=== PATIENT | female | born 1955 | race African-American/Black ===

== ENCOUNTER 2017-11-21 15:25 | Inpatient (IN) | payer MEDICARE, OTHER ==
[2017-11-21 16:34] LABS: Troponin I Less than 0.010 ng/mL (< 0.028)
[2017-11-21 18:17] LABS: Free T4 (Free Thyroxine) 0.93 ng/dL (0.70-1.48); Thyroid Stimulating Hormone 1.9672 uIU/mL (0.35-4.94)
[2017-11-21] MEDS ORDERED: HumaLOG 300 UNITS/3 ML VIAL SC PRN ×2 (19:10)
[2017-11-21] MEDS ORDERED: Ondansetron HCl/PF 4 MG/2 ML Vial IVP PRN (19:10)
[2017-11-21] MEDS ORDERED: traMADol HCl 50 MG TAB PO PRN (19:10)
[2017-11-21] MEDS ORDERED: Acetaminophen 325 MG TAB PO PRN (19:10)
[2017-11-21] MEDS ORDERED: Dextrose 5% in Water 1,000 ML IV PRN (19:10)
[2017-11-21] MEDS ORDERED: hydrALAZINE 20 MG/ML VIAL SLOW IVP PRN (19:10)
[2017-11-21] MEDS ORDERED: Dextrose 50% Abboject 50 ML SYRINGE SLOW IVP PRN (19:10)
[2017-11-21] MEDS ORDERED: Mag-Al 1200 mg/1200 mg/30 ML UDCUP PO PRN (19:10)
[2017-11-21] MEDS ORDERED: Temazepam 15 MG CAP PO PRN (19:10)
[2017-11-21] MEDS ORDERED: Ondansetron ODT 4 MG TAB PO PRN (19:10)
--- NOTE | 2017-11-21 19:44 | CON ---
DATE OF CONSULT: HISTORY OF PRESENT ILLNESS: The patient is a 59-year-old woman who presents for evaluation of dyspnea and weakness. The patient has a previous history of asthma. The patient also states she has a long history of having a slow heart rate. The patient was sent to the emergency room when she felt weak and dyspneic. She reports also having some midsternal chest pain. She states on a regular basis she will have pain in her chest. This occurs with and without exertion. The patient reports that this discomfort can last from several minutes to several hours. It is midsternal and does not radiate. PAST MEDICAL HISTORY: 1. Hypertension. 2. Bradycardia. 3. Asthma. 4. Diabetes mellitus. PAST SURGICAL HISTORY: Hand surgery, and lumbar spine surgery. ALLERGIES: William inhibitors and acetaminophen. SOCIAL HISTORY: She is a former smoker. FAMILY HISTORY: Positive family history of heart disease. REVIEW OF SYSTEMS: Ten-point system otherwise unremarkable. MEDICATIONS ON ADMISSION: Metformin 500 q.a.m., Zocor 40 at bedtime, aspirin 81 daily, HCTZ 12.5 daily, and glipizide 5 mg. PHYSICAL EXAMINATION: GENERAL: This is a well-developed woman in no acute distress. VITAL SIGNS: Blood pressure was 186/76. NECK: Showed no jugular distention. LUNGS: Clear to auscultation. HEART: Regular rate and rhythm, normal S1, S2. ABDOMEN: Nondistended. EXTREMITIES: Showed no edema. SKIN: Warm and dry. NEUROLOGIC: Nonfocal. VASCULAR: Radial pulses are 2+. LABORATORY: Her white blood count 9.8, hemoglobin 11.4, hematocrit 36.3 and her platelets are 280. Sodium was 143, potassium 3.8, chloride 105, bicarbonate 24, BUN 11, creatinine is 1.0, troponin less than 0.01. BNP is 27. TSH is 1.96. EKG revealed marked sinus bradycardia. IMPRESSION: 1. Chest pain, atypical.. 2. Hypertension. 3. Diabetes mellitus. 4. Dyslipidemia. 5. Bradycardia. This patient presented with atypical chest pain. Her cardiac enzymes reveal no evidence of a myocardial infarction. She has marked bradycardia. She however is asymptomatic. We will follow this patient with you through her hospitalization. [facility] CENTERCinthya
[2017-11-21 19:53] LABS: Troponin I 0.015 ng/mL (< 0.028)
[2017-11-21] MEDS: NIFEdipine XL 30 MG TAB PO SCH (21:58)
[2017-11-21 22:02] VITALS: BMI 24.3
[2017-11-21 22:16] LABS: Troponin I Less than 0.010 ng/mL (< 0.028)
--- NOTE | 2017-11-21 22:30 | HP ---
PRIMARY CARE PHYSICIAN: Dr. Kingsley. CHIEF COMPLAINT: Chest tightness and shortness of breath as well as heart rate is going too low. HISTORY OF PRESENT ILLNESS: Ms. Ortiz is a very pleasant 62-year-old female that has a history of hy pertension and diabetes. She says that she was in her usual state of health until yesterday when she started noticing some tightness in her chest. She says it was happening while she was sitting down, playing with her nephew. She says there was nothing strenuous. She also felt a little bit lighthea ded at that time. She says that she went in to check her blood pressure when this happened and her b lood pressure was 190/90 and she took an extra blood pressure medicine which was hydrochlorothiazide and the blood pressure went down only a little bit to 170 systolic. She was using electronic blood p ressure monitor and it was noted that her heart rate was in the 30s and the 40s and the highest it we nt was in the 40s. She said that it continued the next day into the 40s and she noticed some nausea along with this and for this reason she came to the emergency room in [place] for evaluation. A t that time, she had an EKG which had some nonspecific ST wave changes and her heart rate was in the 70s. However, when she was transferred to our facility, a repeat EKG demonstrated heart rate in the 40s and she had some T-wave inversions in leads II, III and aVF, as well as what appears to be a U wa ve in leads V5 and V6. REVIEW OF SYSTEMS: Constitutional: There have been no fevers, chills, no night sweats, no weight lo ss. HEENT: She denies any headaches. She has had some dizziness and some visual changes off and on . No sore throat, no rhinorrhea, no neck pain, no adenopathy. Pulmonary: No hemoptysis, no cough, no wheezing. Cardiovascular: As the history of present illness. No PND, no orthopnea. Gastrointes tinal: She has had some nausea, but no vomiting and she has had some loose stools, no blood in the s tools or melena. Genitourinary: No urinary frequency, hematuria, no hesitancy. Neurologic: No foc al weakness, numbness, no seizures. Psychiatric: No symptoms of anxiety or depression. PAST MEDICAL HISTORY: Significant for diabetes mellitus, hypertension, hyperlipidemia, her record sa ys COPD, but she says asthma and she says she only started having asthma after a chemical spill that she experienced at work. PAST SURGICAL HISTORY: She has had lumbar spine surgery, she says three of them, as well as hand wilfrid jenifer. ALLERGIES: ELLY INHIBITOR, she says she had to be intubated for that, ANGIOTENSIN RECEPTOR BLOCKERS, PROPOXYPHENE, MEPERIDINE. ACETAMINOPHEN is listed in her records, but she denies being allergic to a cetaminophen. FAMILY HISTORY: Significant for brother with KS as well as her father had pancreatic cancer and anot her brother with colon cancer. SOCIAL HISTORY: She is a former smoker. She quit 4 years ago. Prior to that, she had been smoking for 40 years. Occasional beer drinker. She is and she has no children. She had 2 miscarria ges. Her medical power of civil litigation attorney is her sister, Ms. Mendez . CODE STATUS: FULL CODE. MEDICATIONS: She recently was switched to a new diabetic medication which is a pill, but she does no t know the name. She is also on simvastatin 40 mg daily, aspirin 81 mg daily, Combivent inhaler, hyd rochlorothiazide 12.5 mg daily and tramadol 50 mg as needed. PHYSICAL EXAMINATION: GENERAL: She is alert and oriented. She appears to be in no acute distress. VITAL SIGNS: Her heart rate is 43, blood pressure is ranging from 140-180 systolic, respiratory rate of 14, temperature is 97.6. HEENT: Pupils are equal, round, and reactive. Extraocular muscles are intact. Her sclerae are anic teric. Throat, no erythema, no exudates. NECK: No adenopathy, no bruits. LUNGS: Clear. There is no wheezing, no rales. CARDIOVASCULAR: She has a normal S1, S2. I did not appreciate an S3 or S4. No murmurs, clicks or r ubs. Her heart rate is bradycardic. ABDOMEN: Soft, it is nontender, nondistended. Positive for bowel sounds. There is no rebound or gu arding. EXTREMITIES: There is no clubbing, cyanosis, no edema. NEUROLOGIC: Neurologically, the exam is nonfocal. IMAGING: On the EKG from our facility, she had sinus bradycardia, the rate was in the 40s with some T-wave inversion in II, III and aVF as well as a U wave in V5 and V6. LABORATORY RESULTS: D-dimer is 0.49, white blood cell count 9.8, hemoglobin 11.4, hematocrit is 36.3 , platelet count is 280, sodium 143, potassium 3.8, chloride is 105, CO2 is 24, BUN of 11, creatinine 1.0 and glucose is 91. ASSESSMENT AND PLAN: 1. This is a pleasant 62-year-old female who presents to the emergency room with some chest tightness and feeling a bit dizzy and lightheaded. She also has fairly profound bradycardia. I suspect that her symptoms could be related to her low heart rate. She will be placed in observation and we will c bashir to monitor her on telemetry. As long as she is not having a syncope and severe chest pain an d this is while she is on the stretcher with the heart rate in the 40s, then we will go ahead and nando erate that for now and Cardiology will be consulted with regard to possible symptomatic bradycardia. Since she had a stress test fairly recently, I will hold off on ordering a stress test or an echo un til recommended by Cardiology. 2. For diabetes, we will place her on her usual medication once we are able to establish the name an d the dose and also place her on sliding scale insulin. 3. For hypertension, we will be treating this with p.r.n. hydralazine and we will avoid medications such as clonidine or beta blockers, which could affect her AV node.
[2017-11-22 05:36] LABS: #Eosinphils 0.5 thou/uL (0.0-0.7); #Lymphocytes 3.6 thou/uL (1.20-3.40); #Monocytes 0.7 thou/uL (0.11-0.59); #Neutrophils 4.4 thou/uL (1.40-6.50); %Basophils 0.4 % (0.0-1.0); %Eosinophils 5.6 % (0.0-10.0); %Monocytes 7.1 % (0.0-10.0); %Neutrophils 47.8 % (42.0-75.0); Hemoglobin 10.7 g/dL (12.0-16.0); Mean Corpuscular HGB CONC 31.4 g/dL (32.0-36.0); Mean Corpuscular Hemoglobin 25.6 pg (27.0-31.0); Mean Corpuscular Volume 81.5 fl (81.0-99.0); Mean Platelet Volume 7.4 fL (7.4-10.4); Platelet Count 256 thou/uL (130-400); RBC Distribution Width 15.8 % (11.5-14.5); Red Blood Cell (RBC) Count 4.19 mill/uL (4.20-5.40); White Blood Cell (WBC) Count 9.3 thou/uL (4.8-10.8)
[2017-11-22 05:57] LABS: Anion Gap 9 mmol/L (10-20); BUN (Urea Nitrogen) 13 mg/dL (9.8-20.1); Calc. Creatinine Clearance 68 mL/min (70-130); Calcium 9.7 mg/dL (7.8-10.44); Carbon Dioxide 29 mmol/L (23-31); Cardiac Risk 4.3 (Less than 4.5); Chloride 105 mmol/L (98-107); Cholesterol 171 mg/dl (< 200 Desired); Estimated GFR-MDRD 73; Glucose 84 mg/dL (80-115); HDL Cholesterol 40 mg/dL (>60 Neg Risk); LDL Cholesterol, Calculated 109 mg/dL; Potassium 3.5 mmol/L (3.5-5.1); Sodium 139 mmol/L (136-145); Triglycerides 112 mg/dL (Less than 150)
[2017-11-22] MEDS: NIFEdipine XL 30 MG TAB PO SCH ×2 (10:37→20:27)
[2017-11-22] MEDS: Nitroglycerin 2% Ointment 1 INCH/1 GM Packet TOP SCH ×2 (10:37→20:28)
[2017-11-22] MEDS: Aspirin 325 MG TAB PO SCH (10:37)
[2017-11-22] MEDS: Enoxaparin Sodium 40 MG/0.4 ML SYRINGE SC SCH (10:37)
--- NOTE | 2017-11-22 14:53 | PDOC.PN ---
- Subjective Encounter Start Date: 11/22/17 Encounter Start Time: 14:52 Ms. Ortiz was seen today in follow-up. She says she is feeling a little better. She has less chest pain today. - Objective Resuscitation Status: Resuscitation Status FULL:Full Resuscitation MAR Reviewed: Yes Vital Signs & Weight: Vital Signs (12 hours) Temp Pulse Resp BP BP Pulse Ox 11/22/17 10:37 42 L 158/71 H 11/22/17 04:50 98.0 F 45 L 20 155/69 H 95 Weight Admit Weight 154 lb Weight 154 lb 14.4 oz I&O: 11/21/17 11/22/17 11/23/17 06:59 06:59 06:59 Intake Total 150 Output Total 400 Balance -250 Result Diagrams: 11/22/17 04:53 11/22/17 04:53 Additional Labs: Accuchecks 11/22/17 11/22/17 11/21/17 11:17 06:47 19:38 POC Glucose 116 H 93 86 Phys Exam - Physical Examination HEENT: PERRLA Respiratory: no wheezing, no rales, no rhonchi, clear to auscultation bilateral Cardiovascular: RRR, no significant murmur, no rub Gastrointestinal: soft, non-tender, positive bowel sounds Musculoskeletal: no edema Dx/Plan (1) Bradycardia Code(s): R00.1 - BRADYCARDIA, UNSPECIFIED Status: Acute (2) Asthma Code(s): J45.909 - UNSPECIFIED ASTHMA, UNCOMPLICATED Status: Chronic (3) Diabetes type 2, controlled Code(s): E11.9 - TYPE 2 DIABETES MELLITUS WITHOUT COMPLICATIONS Status: Chronic (4) Dyslipidemia Code(s): E78.5 - HYPERLIPIDEMIA, UNSPECIFIED Status: Chronic (5) Hypertension Code(s): I10 - ESSENTIAL (PRIMARY) HYPERTENSION Status: Chronic - Plan * Bradycardia- her heart rate remains in the 40's- she is mostly asymptomatic * Plan is for cardiac Cath on Friday * HTN- blood pressure has been elevated- Pocardia has been added- will monitor the trend * DM- blood glucose is stable. * Asthma- stable
[2017-11-22] MEDS: Atorvastatin Calcium 40 MG TAB PO SCH (20:27)
[2017-11-23] MEDS: NIFEdipine XL 30 MG TAB PO SCH ×2 (07:57→20:14)
[2017-11-23] MEDS: Enoxaparin Sodium 40 MG/0.4 ML SYRINGE SC SCH (07:57)
[2017-11-23] MEDS: Aspirin 325 MG TAB PO SCH (07:57)
[2017-11-23] MEDS: Nitroglycerin 2% Ointment 1 INCH/1 GM Packet TOP SCH ×2 (07:58→20:15)
[2017-11-23] MEDS ORDERED: Communication Order-Pharmacy FS SCH (08:45)
--- NOTE | 2017-11-23 13:11 | PDOC.PN ---
- Subjective Encounter Start Date: 11/23/17 Encounter Start Time: 11:00 Subjective: no sob or chest pain -: no palp, is amb in hallway - Objective Resuscitation Status: Resuscitation Status FULL:Full Resuscitation MAR Reviewed: Yes Vital Signs & Weight: Vital Signs (12 hours) Temp Pulse Resp BP BP Pulse Ox 11/23/17 11:18 97.8 F 66 16 128/60 96 11/23/17 07:57 58 L 146/65 H 11/23/17 07:50 98.0 F 55 L 16 95 11/23/17 07:48 98.0 F 55 L 16 146/65 H 95 11/23/17 05:32 98.0 F 52 L 16 142/67 H 95 Weight Admit Weight 154 lb Weight 154 lb 1.6 oz I&O: 11/22/17 11/23/17 11/24/17 06:59 06:59 06:59 Intake Total 150 1380 Output Total 400 Balance -250 1380 Result Diagrams: 11/22/17 04:53 11/22/17 04:53 Additional Labs: Accuchecks 11/23/17 11/23/17 11/22/17 11:21 05:43 20:44 POC Glucose 136 H 108 115 H 11/22/17 16:42 POC Glucose 116 H Phys Exam - Physical Examination HEENT: PERRLA, moist MMs Neck: no JVD, supple Respiratory: no wheezing, no rales Cardiovascular: RRR, no significant murmur Gastrointestinal: soft, non-tender, positive bowel sounds Musculoskeletal: no edema, pulses present Neurological: non-focal, moves all 4 limbs Psychiatric: normal affect, A&O x 3 Dx/Plan (1) Bradycardia Code(s): R00.1 - BRADYCARDIA, UNSPECIFIED Status: Acute (2) Chest pain Code(s): R07.9 - CHEST PAIN, UNSPECIFIED Status: Resolved Qualifiers: Chest pain type: unspecified Qualified Code(s): R07.9 - Chest pain, unspecified (3) Diabetes type 2, controlled Code(s): E11.9 - TYPE 2 DIABETES MELLITUS WITHOUT COMPLICATIONS Status: Chronic Qualifiers: Diabetes mellitus residential insulin use: without residential use Diabetes mellitus complication status: with unspecified complications Qualified Code(s) : E11.8 - Type 2 diabetes mellitus with unspecified complications (4) Dyslipidemia Code(s): E78.5 - HYPERLIPIDEMIA, UNSPECIFIED Status: Chronic (5) Hypertension Code(s): I10 - ESSENTIAL (PRIMARY) HYPERTENSION Status: Chronic Qualifiers: Hypertension type: essential hypertension Qualified Code(s): I10 - Essential (primary) hypertension (6) Chronic anemia Code(s): D64.9 - ANEMIA, UNSPECIFIED Status: Chronic - Plan for cath in am -: is on asp, lipitor, procardia xl bid, nitropaste -: hemostable -: Hb around 10g and stable * . Review of Systems - Medications/Allergies Allergies/Adverse Reactions: Allergies Allergy/AdvReac Type Severity Reaction Status Date / Time ELLY Inhibitors Allergy Verified 09/07/13 02:12 acetaminophen Allergy Verified 09/07/13 02:12 [From Darvocet-N 100] meperidine HCl [From Demerol] Allergy Verified 09/07/13 02:12 propoxyphene napsylate Allergy Verified 09/07/13 02:12 [From Darvocet-N 100] valsartan [From Diovan] Allergy Verified 09/07/13 02:12 Medications: Current Medications Acetaminophen (Tylenol) 650 mg PO Q4H PRN PRN Reason: Headache/Fever or Pain Al Hydroxide/Mg Hydroxide (Maalox) 30 ml PO Q6H PRN PRN Reason: Heartburn or Indigestion Albuterol/Ipratropium (Duoneb) 3 ml NEB QID PRN PRN Reason: Wheezing Aspirin (Aspirin) 325 mg PO DAILY [facility] Last Admin: 11/23/17 07:57 Dose: 325 mg Atorvastatin Calcium (Lipitor) 40 mg PO HS [facility] Last Admin: 11/22/17 20:27 Dose: 40 mg Dextrose/Water (Dextrose 50%) 25 gm SLOW IVP PRN PRN PRN Reason: Hypoglycemia Diazepam (Valium) 5 mg PO WILLCALL [facility] Stop: 11/24/17 20:00 Enoxaparin Sodium (Lovenox) 40 mg SC 0900 [facility] Stop: 11/23/17 21:01 Last Admin: 11/23/17 07:57 Dose: 40 mg Glucagon (Glucagon) 1 mg IM PRN PRN PRN Reason: Hypoglycemia Hydralazine HCl (Apresoline) 10 mg SLOW IVP Q4H PRN PRN Reason: Systolic BP > 180 Dextrose/Water (D5w) 1,000 mls @ 0 mls/hr IV .Q0M PRN; As Directed PRN Reason: Hypoglycemia Insulin Human Lispro (Humalog) 0 units SC .MODERATE SLIDING SC PRN PRN Reason: Moderate Correctional Scale Insulin Human Lispro (Humalog) 0 units SC .BEDTIME SLIDING SC PRN PRN Reason: Bedtime Correctional Scale Miscellaneous Information (Communication Order-Pharmacy) 0 each FS ONE [facility] Stop: 11/24/17 08:46 Nifedipine (Procardia Xl) 30 mg PO BID [facility] Last Admin: 11/23/17 07:57 Dose: 30 mg Nitroglycerin (Nitro-Bid 2% Ointment) 1 inch TOP BID [facility] Last Admin: 11/23/17 07:58 Dose: 1 inch Ondansetron HCl (Zofran Odt) 4 mg PO Q6H PRN PRN Reason: Nausea/Vomiting Ondansetron HCl (Zofran) 4 mg IVP Q6H PRN PRN Reason: Nausea/Vomiting Sodium Chloride (Flush - Normal Saline) 10 ml IVF Q12HR [facility] Last Admin: 11/23/17 07:58 Dose: 10 ml Sodium Chloride (Flush - Normal Saline) 10 ml IVF PRN PRN PRN Reason: Saline Flush Temazepam (Restoril) 15 mg PO HSPRN PRN PRN Reason: Insomnia Tramadol HCl (Ultram) 50 mg PO Q4H PRN PRN Reason: Moderate Pain (4-6)
[2017-11-23] MEDS: Atorvastatin Calcium 40 MG TAB PO SCH (20:14)
[2017-11-24] MEDS: NIFEdipine XL 30 MG TAB PO SCH ×2 (05:09→20:26)
[2017-11-24] MEDS: Aspirin 325 MG TAB PO SCH (05:11)
[2017-11-24] MEDS ORDERED: Diazepam 5 MG TAB PO SCH (06:00)
[2017-11-24] MEDS ORDERED: Lidocaine 1% (PF) 30 ML VIAL ONE (07:17)
[2017-11-24] MEDS ORDERED: Midazolam HCl 2 mg/2 ml Vial ONE (08:27)
[2017-11-24] MEDS ORDERED: Nitroglycerin 0.4 MG TAB (25 Tab Bottle) SL PRN (09:13)
[2017-11-24] MEDS ORDERED: Sodium Chloride 0.9% 200 ML IV PRN (09:15)
[2017-11-24] MEDS: Nitroglycerin 2% Ointment 1 INCH/1 GM Packet TOP SCH (10:49)
--- NOTE | 2017-11-24 11:40 | PDOC.PN ---
- Subjective Encounter Start Date: 11/24/17 Encounter Start Time: 10:30 Subjective: just had cath done, awake, no sob/chest pain - Objective Resuscitation Status: Resuscitation Status FULL:Full Resuscitation MAR Reviewed: Yes Vital Signs & Weight: Vital Signs (12 hours) Temp Pulse Resp BP BP 11/24/17 08:00 97.9 F 55 L 16 11/24/17 05:28 97.9 F 55 L 16 138/65 11/24/17 05:09 55 L 138/65 Weight Admit Weight 154 lb Weight 154 lb 1.6 oz I&O: 11/23/17 11/24/17 11/25/17 06:59 06:59 06:59 Intake Total 1380 1265 Output Total 1200 400 Balance 1380 65 -400 Result Diagrams: 11/22/17 04:53 11/22/17 04:53 Additional Labs: Accuchecks 11/24/17 11/23/17 11/23/17 05:41 20:14 16:40 POC Glucose 102 135 H 93 Phys Exam - Physical Examination HEENT: PERRLA, moist MMs Neck: no JVD, supple Respiratory: no wheezing, no rales Cardiovascular: RRR, no significant murmur Gastrointestinal: soft, non-tender, positive bowel sounds Musculoskeletal: no edema, pulses present Neurological: non-focal, moves all 4 limbs Psychiatric: A&O x 3 Dx/Plan (1) CAD (coronary artery disease) Code(s): I25.10 - ATHSCL HEART DISEASE OF [place] CORONARY ARTERY W/O ANG PCTRS Status: Acute Qualifiers: Coronary Disease-Associated Artery/Lesion type: [place] artery [place] vs. transplanted heart: [place] heart Comment: RCA and Cx stenosis (2) Bradycardia Code(s): R00.1 - BRADYCARDIA, UNSPECIFIED Status: Acute (3) Chest pain Code(s): R07.9 - CHEST PAIN, UNSPECIFIED Status: Resolved Qualifiers: Chest pain type: unspecified Qualified Code(s): R07.9 - Chest pain, unspecified (4) Diabetes type 2, controlled Code(s): E11.9 - TYPE 2 DIABETES MELLITUS WITHOUT COMPLICATIONS Status: Chronic Qualifiers: Diabetes mellitus goods layer insulin use: without goods layer use Diabetes mellitus complication status: with unspecified complications Qualified Code(s) : E11.8 - Type 2 diabetes mellitus with unspecified complications (5) Dyslipidemia Code(s): E78.5 - HYPERLIPIDEMIA, UNSPECIFIED Status: Chronic (6) Hypertension Code(s): I10 - ESSENTIAL (PRIMARY) HYPERTENSION Status: Chronic Qualifiers: Hypertension type: essential hypertension Qualified Code(s): I10 - Essential (primary) hypertension (7) Chronic anemia Code(s): D64.9 - ANEMIA, UNSPECIFIED Status: Chronic - Plan cath report reviewed -: likely will need PCM -: meds to be optimized per cardio advice -: is on asp, lipitor and procardia bid now * . Review of Systems - Medications/Allergies Allergies/Adverse Reactions: Allergies Allergy/AdvReac Type Severity Reaction Status Date / Time ELLY Inhibitors Allergy Verified 09/07/13 02:12 acetaminophen Allergy Verified 09/07/13 02:12 [From Darvocet-N 100] meperidine HCl [From Demerol] Allergy Verified 09/07/13 02:12 propoxyphene napsylate Allergy Verified 09/07/13 02:12 [From Darvocet-N 100] valsartan [From Diovan] Allergy Verified 09/07/13 02:12 Medications: Current Medications Acetaminophen (Tylenol) 650 mg PO Q4H PRN PRN Reason: Headache/Fever or Pain Al Hydroxide/Mg Hydroxide (Maalox) 30 ml PO Q6H PRN PRN Reason: Heartburn or Indigestion Albuterol/Ipratropium (Duoneb) 3 ml NEB QID PRN PRN Reason: Wheezing Aspirin (Aspirin) 325 mg PO DAILY [facility] Last Admin: 11/24/17 05:11 Dose: 325 mg Atorvastatin Calcium (Lipitor) 40 mg PO HS [facility] Last Admin: 11/23/17 20:14 Dose: 40 mg Dextrose/Water (Dextrose 50%) 25 gm SLOW IVP PRN PRN PRN Reason: Hypoglycemia Diazepam (Valium) 5 mg PO WILLCALL [facility] Stop: 11/24/17 20:00 Last Admin: 11/24/17 07:58 Dose: 5 mg Glucagon (Glucagon) 1 mg IM PRN PRN PRN Reason: Hypoglycemia Hydralazine HCl (Apresoline) 10 mg SLOW IVP Q4H PRN PRN Reason: Systolic BP > 180 Dextrose/Water (D5w) 1,000 mls @ 0 mls/hr IV .Q0M PRN; As Directed PRN Reason: Hypoglycemia Sodium Chloride (Normal Saline 0.9%) 200 mls @ 0 mls/hr IV ONE PRN; As Directed PRN Reason: Bolus PRN SBP < 90 mm Hg Stop: 11/27/17 09:16 Insulin Human Lispro (Humalog) 0 units SC .MODERATE SLIDING SC PRN PRN Reason: Moderate Correctional Scale Insulin Human Lispro (Humalog) 0 units SC .BEDTIME SLIDING SC PRN PRN Reason: Bedtime Correctional Scale Nifedipine (Procardia Xl) 30 mg PO BID [facility] Last Admin: 11/24/17 05:09 Dose: 30 mg Nitroglycerin (Nitrostat) 0.4 mg SL Q5MIN PRN PRN Reason: Chest Pain Ondansetron HCl (Zofran Odt) 4 mg PO Q6H PRN PRN Reason: Nausea/Vomiting Ondansetron HCl (Zofran) 4 mg IVP Q6H PRN PRN Reason: Nausea/Vomiting Sodium Chloride (Flush - Normal Saline) 10 ml IVF Q12HR [facility] Last Admin: 11/24/17 10:43 Dose: Not Given Sodium Chloride (Flush - Normal Saline) 10 ml IVF PRN PRN PRN Reason: Saline Flush Temazepam (Restoril) 15 mg PO HSPRN PRN PRN Reason: Insomnia Tramadol HCl (Ultram) 50 mg PO Q4H PRN PRN Reason: Moderate Pain (4-6) Last Admin: 11/24/17 02:40 Dose: 50 mg
[2017-11-24] MEDS: Atorvastatin Calcium 20 MG TAB PO SCH (20:26)
[2017-11-25] MEDS ORDERED: NIFEdipine XL 30 MG TAB PO SCH (09:00)
[2017-11-25] MEDS: NIFEdipine XL 60 MG TAB PO SCH (09:39)
--- NOTE | 2017-11-25 11:42 | PDOC.PN ---
- Subjective Encounter Start Date: 11/25/17 Encounter Start Time: 09:00 Subjective: no chest pain or palp or sob - Objective Resuscitation Status: Resuscitation Status FULL:Full Resuscitation MAR Reviewed: Yes Vital Signs & Weight: Vital Signs (12 hours) Temp Pulse Resp BP Pulse Ox 11/25/17 08:15 97.8 F 56 L 18 92 L 11/25/17 08:00 97.8 F 56 L 18 117/64 92 L 11/25/17 04:00 98.0 F 55 L 18 122/69 95 Weight Admit Weight 154 lb Weight 154 lb 1.6 oz I&O: 11/24/17 11/25/17 11/26/17 06:59 06:59 06:59 Intake Total 1265 1360 Output Total 1200 2500 Balance 65 -1140 Result Diagrams: 11/22/17 04:53 11/22/17 04:53 Additional Labs: Accuchecks 11/25/17 11/25/17 11/24/17 10:25 05:57 20:54 POC Glucose 128 H 100 129 H 11/24/17 11/24/17 16:44 12:14 POC Glucose 82 93 Phys Exam - Physical Examination HEENT: PERRLA, moist MMs Neck: no JVD, supple Respiratory: no wheezing, no rales Cardiovascular: RRR, no significant murmur Gastrointestinal: soft, non-tender, positive bowel sounds Musculoskeletal: no edema, pulses present Neurological: non-focal, moves all 4 limbs Psychiatric: A&O x 3 Dx/Plan (1) CAD (coronary artery disease) Code(s): I25.10 - ATHSCL HEART DISEASE OF [place] CORONARY ARTERY W/O ANG PCTRS Status: Acute Qualifiers: Coronary Disease-Associated Artery/Lesion type: [place] artery [place] vs. transplanted heart: [place] heart Comment: RCA and Cx stenosis (2) Bradycardia Code(s): R00.1 - BRADYCARDIA, UNSPECIFIED Status: Acute (3) Chest pain Code(s): R07.9 - CHEST PAIN, UNSPECIFIED Status: Resolved Qualifiers: Chest pain type: unspecified Qualified Code(s): R07.9 - Chest pain, unspecified (4) Diabetes type 2, controlled Code(s): E11.9 - TYPE 2 DIABETES MELLITUS WITHOUT COMPLICATIONS Status: Chronic Qualifiers: Diabetes mellitus oil heaterman insulin use: without correction use Diabetes mellitus complication status: with unspecified complications Qualified Code(s) : E11.8 - Type 2 diabetes mellitus with unspecified complications (5) Dyslipidemia Code(s): E78.5 - HYPERLIPIDEMIA, UNSPECIFIED Status: Chronic (6) Hypertension Code(s): I10 - ESSENTIAL (PRIMARY) HYPERTENSION Status: Chronic Qualifiers: Hypertension type: essential hypertension Qualified Code(s): I10 - Essential (primary) hypertension (7) Chronic anemia Code(s): D64.9 - ANEMIA, UNSPECIFIED Status: Chronic - Plan cleared for dc by cardio -: dc home, to f/u with as adv -: is on procardia, asp, lipitor -: no bb due to bradycardia * . Review of Systems - Medications/Allergies Allergies/Adverse Reactions: Allergies Allergy/AdvReac Type Severity Reaction Status Date / Time ELLY Inhibitors Allergy Verified 09/07/13 02:12 acetaminophen Allergy Verified 09/07/13 02:12 [From Darvocet-N 100] meperidine HCl [From Demerol] Allergy Verified 09/07/13 02:12 propoxyphene napsylate Allergy Verified 09/07/13 02:12 [From Darvocet-N 100] valsartan [From Diovan] Allergy Verified 09/07/13 02:12 Medications: Current Medications Acetaminophen (Tylenol) 650 mg PO Q4H PRN PRN Reason: Headache/Fever or Pain Al Hydroxide/Mg Hydroxide (Maalox) 30 ml PO Q6H PRN PRN Reason: Heartburn or Indigestion Albuterol/Ipratropium (Duoneb) 3 ml NEB QID PRN PRN Reason: Wheezing Aspirin (Aspirin Chewable) 81 mg PO DAILY [facility] Last Admin: 11/25/17 09:40 Dose: 81 mg Atorvastatin Calcium (Lipitor) 40 mg PO HS [facility] Last Admin: 11/24/17 20:26 Dose: 40 mg Dextrose/Water (Dextrose 50%) 25 gm SLOW IVP PRN PRN PRN Reason: Hypoglycemia Glucagon (Glucagon) 1 mg IM PRN PRN PRN Reason: Hypoglycemia Hydralazine HCl (Apresoline) 10 mg SLOW IVP Q4H PRN PRN Reason: Systolic BP > 180 Dextrose/Water (D5w) 1,000 mls @ 0 mls/hr IV .Q0M PRN; As Directed PRN Reason: Hypoglycemia Sodium Chloride (Normal Saline 0.9%) 200 mls @ 0 mls/hr IV ONE PRN; As Directed PRN Reason: Bolus PRN SBP < 90 mm Hg Stop: 11/27/17 09:16 Insulin Human Lispro (Humalog) 0 units SC .MODERATE SLIDING SC PRN PRN Reason: Moderate Correctional Scale Insulin Human Lispro (Humalog) 0 units SC .BEDTIME SLIDING SC PRN PRN Reason: Bedtime Correctional Scale Nifedipine (Procardia Xl) 60 mg PO DAILY [facility] Last Admin: 11/25/17 09:39 Dose: 60 mg Nitroglycerin (Nitrostat) 0.4 mg SL Q5MIN PRN PRN Reason: Chest Pain Ondansetron HCl (Zofran Odt) 4 mg PO Q6H PRN PRN Reason: Nausea/Vomiting Ondansetron HCl (Zofran) 4 mg IVP Q6H PRN PRN Reason: Nausea/Vomiting Sodium Chloride (Flush - Normal Saline) 10 ml IVF Q12HR [facility] Last Admin: 11/25/17 09:40 Dose: 10 ml Sodium Chloride (Flush - Normal Saline) 10 ml IVF PRN PRN PRN Reason: Saline Flush Temazepam (Restoril) 15 mg PO HSPRN PRN PRN Reason: Insomnia Tramadol HCl (Ultram) 50 mg PO Q4H PRN PRN Reason: Moderate Pain (4-6) Last Admin: 11/24/17 02:40 Dose: 50 mg
[2017-11-25] MEDS: Atorvastatin Calcium 20 MG TAB PO SCH (21:56)
--- NOTE | 2017-11-26 00:44 | DIS ---
DATE OF ADMISSION: 11/21/2017 DATE OF DISCHARGE: 11/25/2017 DISCHARGE DISPOSITION: To home. PRIMARY DISCHARGE DIAGNOSES: Two-vessel coronary artery disease, symptomatic bradycardia, resolving. SECONDARY DISCHARGE DIAGNOSES: Diabetes mellitus type 2, hypertension, dyslipidemia, chronic anemia. PROCEDURES DONE DURING HOSPITALIZATION: Patient has had cardiac catheterization done by Dr. Pardo on 11/24/2017. Mid RCA had 100% stenosis, which was 9 mm in length ANNY flow was zero. There was poor runoff and appeared to be chronic occlusion. First acute marginal had 95% stenosis, which was 6 mm in length. ANNY 3 flow was noted. Proximal RCA had 90% stenosis measuring 8 mm. There was good collateral flow from mid circumflex to right PAV. LABORATORY DATA: H&H 10 and 34, platelet count 256, MCV is 81. Total cholesterol 171, triglycerides 112, LDL 109, HDL 40. Troponin x3 were negative. TSH was 1.96, free T4 of 0.9. DISCHARGE MEDICATIONS: Aspirin 81 mg p.o. daily, Lipitor 40 mg p.o. at bedtime , Combivent inhaler q.i.d. p.r.n., Procardia-XL 60 mg p.o. daily. ALLERGIES: To ELLY INHIBITOR, TYLENOL, MEPERIDINE, PROPOXYPHENE, and VALSARTAN. INPATIENT CONSULTS: Dr. Pardo for Cardiology. DISCHARGE PLAN: Patient to follow up with Dr. Pardo as advised and primary care physician in 1 week. Patient has been advised to check blood pressure and pulse twice daily and record for a period of 10 days to follow up with her primary care physician. BRIEF COURSE DURING HOSPITALIZATION: Patient initially came to ER with complaints of shortness of breath and chest tightness. She was bradycardic with heart rates dropping into 40s. Patient has had consultation with Dr. Pardo. She has had cardiac catheterization done, which showed diffuse RCA disease with likely chronic occlusion. Patient's heart rate has remained stable between 48 and 68 beats the last 24 hours now. She has been given Procardia XL from last 3 days and her heart rate has remained more stable with no worsening of her bradycardia. She has been cleared by Dr. Pardo for discharge. Patient was counseled with regard to heart-healthy diet and medication compliance. She needs to check her pulse and blood pressure for a period of 10 days twice daily and record on a sheet of paper to follow up with primary care physician. She is otherwise hemodynamically stable, ambulating in the room and eating well prior to discharge. Please [facility] the day of discharge. MANUEL
[2017-11-26 07:57] VITALS: BP 162/75; TEMP 97.7
[2017-11-26] MEDS: NIFEdipine XL 60 MG TAB PO SCH (09:51)
== END 2017-11-26 10:55 | disposition home or self-care (01) | DRG 287 ==
LOC: ERS 15:25 → ERHOLD 17:20 → 2NO 20:59
PROVIDERS: ADMIT Internal Medicine; ATTEND Internal Medicine
PROC: 4A023N7 Measurement of Cardiac Sampling and Pressure, Left Heart, Percutaneous Approach (ICD-10-PCS; principal; 2017-11-24)
PROC: B2111ZZ Fluoroscopy of Multiple Coronary Arteries using Low Osmolar Contrast (ICD-10-PCS; 2017-11-24)
DX: I25.10 Atherosclerotic heart disease of native coronary artery without angina pectoris (principal); I25.82 Chronic total occlusion of coronary artery; D64.9 Anemia, unspecified; E11.9 Type 2 diabetes mellitus without complications; E78.5 Hyperlipidemia, unspecified; I10 Essential (primary) hypertension; R00.1 Bradycardia, unspecified; Z87.891 Personal history of nicotine dependence; J44.9 Chronic obstructive pulmonary disease, unspecified
CPT/HCPCS: 36415; 36416; 80048; 80061; 83735; 84439; 84443; 85025; 85379; 93005; 93458; 93798; 94760; 99152; 99153; 99406; A4216; C1769; J1644; J1650; J2001; J2250

== ENCOUNTER 2018-01-06 11:06 | Outpatient (CLI) | payer MEDICARE, OTHER | END 2018-01-06 11:07 | disposition home or self-care (01) | LOC: BICMAMMO 11:06 | PROVIDERS: ATTEND Family Medicine | DX: Z12.31 Encounter for screening mammogram for malignant neoplasm of breast (principal); Z01.419 Encounter for gynecological examination (general) (routine) without abnormal findings; Z80.3 Family history of malignant neoplasm of breast | CPT/HCPCS: 77063; 77067 ==

== ENCOUNTER 2018-10-20 07:13 | Day surgery (SDC) | payer MEDICARE, MEDICAID ==
--- NOTE | 2018-10-19 20:35 | HP ---
HISTORY OF PRESENT ILLNESS: Ms. Shirlene Ortiz is a very pleasant 63-year-old female referred to me by Dr. Lora because of abdominal pain, abdominal bloating, and also history of intermittent diarrhea. The patient has history of diarrhea, off and on constipation. She also has abdominal bloating, abdominal swelling recently. These are all chronic in nature. There is no h/o nausea, vomiting. The patient comes in for EGD today because of the chronic GI symptoms. ALLERGIES: AMLODIPINE, DEMEROL, DICYCLOMINE, LISINOPRIL, AND PANTOPRAZOLE. SOCIAL HISTORY: The patient is a smoker. She drinks alcohol socially. MEDICAL ILLNESS: 1. Diabetes mellitus. 2. Reactive airway disease. 3. IBS. 4. Colon polyp. 5. Hypertension. 6. Hyperlipidemia. 7. Coronary artery disease. 8. Chronic acid reflux. 9. Left mastectomy. 10. Back surgery. PHYSICAL EXAMINATION: VITAL SIGNS: Pulse is 70, blood pressure 130/70. HEENT: Conjunctivae clear. CARDIOVASCULAR: First and second heart sounds heard. LUNGS: Clear to auscultation. ABDOMEN: Soft. No organomegaly. Abdomen is tender over the epigastric area. There is no rebound or guarding. ADMITTING DIAGNOSES: Abdominal pain and chronic dyspepsia. PLAN: EGD. Job ID: [id number] [facility] NETWORKCinthya
[2018-10-20] MEDS ORDERED: Albuterol Sulfate 1.25 MG/3 ML NEB ONE (08:54)
[2018-10-20] MEDS ORDERED: Albuterol Sulfate HFA (OR ONLY) ONE (08:55)
--- NOTE | 2018-10-20 12:31 | OP ---
DATE OF PROCEDURE: 10/20/2018 PROCEDURE PERFORMED: Esophagogastroduodenoscopy with biopsy. PREOPERATIVE DIAGNOSES: 1. Abdominal pain. 2. Chronic dyspepsia. POSTOPERATIVE DIAGNOSES: 1. Antral gastritis. 2. Ulcer in the duodenal bulb with duodenitis. 3. Normal esophagus. DESCRIPTION OF PROCEDURE: The patient was placed on her left lateral position and was given sedation by Anesthesia Department. A Pentax video gastroscope under direct vision was passed down the oropharynx to the GE junction into the stomach and subsequently into the descending duodenum. The vocal cords appeared very healthy. The esophageal mucosa appeared normal through the esophagus. In the GE junction, no pathology seen. Retroflexion failed to show any pathology in the fundus or cardia. In the gastric body, no pathology seen. The gastric antrum shows focal area of mucosal edema and erythema. The duodenal bulb shows an ulceration with the duodenitis. In the descending duodenum, no pathology seen. The scope was withdrawn back to the stomach and biopsies of the gastric antrum, incisura, and also gastric body. The stomach decompressed and scope removed. DISCHARGE PLANNING: This is a 63-year-old female with abdominal pain and chronic dyspepsia, came for EGD. The EGD showed antral gastritis and also an ulcer in the bulb. DISCHARGE RECOMMENDATIONS: 1. Omeprazole 40 once a day. 2. We will await the gastric biopsy. The biopsy shows Helicobacter pylori, treat accordingly. Job ID: [id number]
[2018-10-20] MEDS ORDERED: Lidocaine 1% PF 5 ML VIAL ONE (15:19)
[2018-10-20] MEDS ORDERED: PROPOFOL 200 MG/20 ML VIAL ONE (15:19)
[2018-10-20] MEDS ORDERED: PROVENTIL INHALER 6.7 G (200 INHALATIONS) ONE (15:19)
== END 2018-10-20 09:50 | disposition home or self-care (01) ==
LOC: SDC 07:13
PROVIDERS: ATTEND Internal Medicine Gastroenterology
PROC: 0DB68ZX Excision of Stomach, Via Natural or Artificial Opening Endoscopic, Diagnostic (ICD-10-PCS; principal; 2018-10-20)
DX: K29.50 Unspecified chronic gastritis without bleeding (principal); E11.9 Type 2 diabetes mellitus without complications; J45.909 Unspecified asthma, uncomplicated; I10 Essential (primary) hypertension; E78.5 Hyperlipidemia, unspecified; I25.10 Atherosclerotic heart disease of native coronary artery without angina pectoris; K21.9 Gastro-esophageal reflux disease without esophagitis; K58.9 Irritable bowel syndrome, unspecified; K26.9 Duodenal ulcer, unspecified as acute or chronic, without hemorrhage or perforation; Z98.890 Other specified postprocedural states; Z90.12 Acquired absence of left breast and nipple; Z79.82 Long term (current) use of aspirin; Z79.899 Other long term (current) drug therapy; Z79.52 Long term (current) use of systemic steroids
CPT/HCPCS: 88305; 88312; J2001; J2704

== ENCOUNTER 2019-01-07 09:13 | Outpatient (CLI) | payer MEDICARE, MEDICAID ==
--- NOTE | 2019-01-07 10:27 | MMO ---
Bilateral MAMMO Bilat Screen [facility]. CLINICAL HISTORY: Patient is 63 years old and is seen for screening. The patient has the following family history of breast cancer: half sister. The patient has no personal history of cancer. VIEWS: The views performed were: bilateral craniocaudal with tomosynthesis and bilateral mediolateral oblique with tomosynthesis. FILMS COMPARED: The present examination has been compared to a prior imaging study performed at [facility] on 01/06/2018. MAMMOGRAM FINDINGS: The breasts are heterogeneously dense, which could obscure a lesion on mammography. There are no suspicious masses, suspicious calcifications, or new areas of architectural distortion. IMPRESSION: THERE IS NO MAMMOGRAPHIC EVIDENCE OF MALIGNANCY. A ROUTINE FOLLOW-UP MAMMOGRAM IN 1 YEAR IS RECOMMENDED. THE RESULTS OF THIS EXAM WERE SENT TO THE PATIENT. ACR BI-RADS Category 1 - Negative MAMMOGRAPHY NOTE: 1. A negative mammogram report should not delay a biopsy if a dominant of clinically suspicious mass is present. 2. Approximately 10% to 15% of breast cancers are not detected by mammography. 3. Adenosis and dense breasts may obscure an underlying neoplasm.
--- NOTE | 2019-01-07 10:37 | BD ---
EXAM: DEXA bone density examination HISTORY: 63-year-old postmenopausal female for screening COMPARISON: None FINDINGS: Right femoral neck--bone mineral density0.807; T score -0.4 Total proximal right femur--bone mineral density 1.006; T score 0.5 Left femoral neck--bone mineral density0.883; T score 0.3 Total proximal left femur--bone mineral density 1.046; T score 0.8 IMPRESSION: Normal bone mineral density
== END 2019-01-07 09:14 | disposition home or self-care (01) ==
LOC: BICMAMMO 09:13
PROVIDERS: ATTEND Family Medicine
DX: Z12.31 Encounter for screening mammogram for malignant neoplasm of breast (principal); Z13.820 Encounter for screening for osteoporosis; Z78.0 Asymptomatic menopausal state; Z80.3 Family history of malignant neoplasm of breast
CPT/HCPCS: 77063; 77067; 77080

== ENCOUNTER 2019-02-16 18:16 | Observation (INO) | payer MEDICARE, OTHER ==
[2019-02-16] MEDS ORDERED: Nitroglycerin 2% Ointment 1 INCH/1 GM Packet ONE (20:15)
[2019-02-16 22:25] LABS: Troponin I Less than 0.010 ng/mL (< 0.028)
[2019-02-16 22:57] VITALS: BMI 26.8
[2019-02-16] MEDS ORDERED: Ondansetron PF 4 MG/2 ML Vial IVP PRN (23:32)
[2019-02-16] MEDS ORDERED: Dextrose 5% in Water 1,000 ML IV PRN (23:32)
[2019-02-16] MEDS ORDERED: Dextrose 50% Abboject 50 ML SYRINGE SLOW IVP PRN (23:32)
[2019-02-16] MEDS ORDERED: HumaLOG 300 UNITS/3 ML VIAL SC PRN ×2 (23:32)
[2019-02-17] MEDS ORDERED: traMADol HCl 50 MG TAB PO PRN (00:03)
[2019-02-17] MEDS ORDERED: traMADol HCl 50 MG TAB PO SCH (00:15)
[2019-02-17] MEDS: Sodium Chloride 0.9% 1,000 ML IV SCH ×2 (00:49→18:48)
--- NOTE | 2019-02-17 00:51 | HP ---
CHIEF COMPLAINT: Left-sided chest pain. HISTORY OF PRESENT ILLNESS: Ms. Ortiz is a 63-year-old woman, who presents with complaints of left-sided chest pain for the last week that has been progressively worsening. The patient states the pain is on the left side of her chest and radiates up to her neck. She states it last anywhere from 15 to 30 minutes with a severity of 10/10 and eventually eases about a 7/10 in severity. She denies taking any pain medications. States nothing seems to make it better, but it loses its intensity on its own. She is unable to carry out with her normal activities, but states she has been more sedentary since it started. She reports having long-standing issues with shortness of breath associated with her COPD/asthma. Recently, she has not been more short of breath than usual. Reports an occasional cough and did note one episode of hemoptysis one week ago. Reports having issues with cramping in both legs and cramping in her feet. She states this is intermittent. She reports having nausea but denies any vomiting. She denies having any fevers, chills, or sweats. No lower leg swelling or edema. LABORATORY DATA: In the ER, she underwent laboratory studies notable for low hemoglobin of 9.5, and it appears she has been chronically anemic, also noted to have an SOPHIA with a creatinine of 1.3. Serial troponins negative and BNP normal at 10.3. PAST MEDICAL HISTORY: 1. COPD. 2. Type 2 diabetes mellitus. 3. Hyperlipidemia. 4. Hypertension. PAST SURGICAL HISTORY: 1. Lumbar surgery x3. 2. Hand surgery. 3. Cyst removal. SOCIAL HISTORY: The patient reports drinking on social occasions. Denies any illicit drug use. She does not smoke currently. Does report history of smoking in the past. ALLERGIES: 1. ELLY INHIBITORS. 2. DARVOCET. 3. DEMEROL. 4. DIOVAN. 5. LISINOPRIL. 6. MEPERIDINE. CURRENT MEDICATIONS: 1. Simvastatin. 2. Glipizide. 3. Aspirin. 4. Hydrochlorothiazide. 5. Combivent. 6. Ventolin HFA. PHYSICAL EXAMINATION: GENERAL: The patient appears well-developed, well-nourished, and she is in no acute distress. She is found resting comfortably, laying on her left side. VITAL SIGNS: Temperature 98.3, pulse 79, respirations 16, O2 saturation 98% on room air, and blood pressure 156/69. HEENT: Normocephalic and atraumatic. Pupils are equal, round, and reactive to light. Sclerae are without icterus. Oropharynx is clear. NECK: Supple with some discomfort at the level of C7 on palpation. No bony deformity. Full range of motion. Reports some discomfort with range of motion on both sides of her neck. LUNGS: Clear to auscultation bilaterally without any wheezes, rales, or rhonchi. CARDIAC: Regular rate and rhythm. Notable left-sided chest wall tenderness on palpation. No chest deformity or overlying skin changes. ABDOMEN: Soft. Mild discomfort with palpation of the right upper quadrant. No guarding or rigidity. Normal bowel sounds present. No palpable masses. No renal angle tenderness. EXTREMITIES: Without any lower leg swelling or edema. No calf tenderness. NEUROLOGIC: Alert and oriented x3. SKIN: Without rash or jaundice. LABORATORY DATA: White blood count 8.8, hemoglobin 9.5, hematocrit 31.3, and platelets 323. Sodium 142, potassium 3.5, BUN 14, creatinine 1.30, GFR 50, and glucose 95. LFTs unremarkable. Troponin negative x3. BNP 10.3. IMAGING DATA: Chest x-ray on 02/16/2019. No evidence of acute cardiopulmonary disease. Normal size cardiomediastinal silhouette. IMPRESSION AND PLAN: Ms. Ortiz is a pleasant 63-year-old man, being admitted for management of the following. 1. Chest pain. The patient states this has been ongoing for the last week and progressively worsening. Appears to be constant but more severe at times. She did have chest wall tenderness. Serial troponins negative. EKG done in the ER notable for bradycardia with a heart rate of 46. She was noted to have T-wave inversion affecting leads 1, 2, AVF, V3 to V6. The patient with negative chest x-ray and serial troponins. I have requested a cardiac stress test to further workup concerning for possible cardiac abnormality. The patient did have signs of musculoskeletal pain on examination. We will try a dose of Toradol for pain. The patient reports one episode of hemoptysis one week ago. We will add on a D-dimer. 2. Bradycardia. We will continue to monitor. Currently, her heart rate is improved to 79. Repeat EKG in the morning. Day Team to decide if further cardiology input necessary. 3. Acute kidney injury. We will give gentle IV hydration. Monitor renal function. 4. Hypertension. Resume home medications and monitor her blood pressure. 5. Type 2 diabetes mellitus. Insulin sliding scale initiated. Monitor blood glucose. 6. Neck pain. The patient with some discomfort with certain movements. She had some tenderness with palpation at C7/T1. We will obtain plain films of the cervical and thoracic spine. Her symptoms could likely be musculoskeletal in nature. 7. Anemia. Appears to be long-standing, and she did undergo recent iron studies. Continue to monitor. 8. Gastrointestinal prophylaxis. 9. Deep venous thrombosis prophylaxis with mechanical SCDs. 10. Code status: Full. Her surrogate decision maker is her sister, Talisha marques. The patient's case was discussed with Dr. Carver, who agrees with plan of care as described above. Job ID: [id number]
[2019-02-17 01:04] LABS: Troponin I 0.017 ng/mL (< 0.028)
[2019-02-17 05:22] LABS: Bilirubin Negative (Negative); Blood, Urine Negative (Negative); Clarity Clear (Clear); Glucose, Urine (Dipstick) Negative (Negative); Leukocyte Negative (Negative); Nitrite Negative (Negative); Protein, Urine (Dipstick) Negative (Neg-Trace)
[2019-02-17 05:24] LABS: Urine Culture Reflex No No
[2019-02-17 05:33] LABS: Amphetamine Not Detected (NotDetected); Barbiturates Screen Not Detected (NotDetected); Benzodiazepine Screen Not Detected (NotDetected); Cocaine Metabolite Screen Not Detected (NotDetected); Medtox Control Line Valid? VALID (VALID); Medtox Reader # READER 1; Methadone Not Detected (NotDetected); Methamphetamine Not Detected (NotDetected); Opiate Screen Not Detected (NotDetected); Oxycodone Screen Not Detected (NotDetected); Phencyclidine (PCP) Not Detected (NotDetected); THC/Cannabinoid Screen Detected (NotDetected); Tricyclic Screen Not Detected (NotDetected)
[2019-02-17 05:39] LABS: Bacteria/HPF Rare-Few HPF (None Seen); RBC/HPF None Seen HPF (0-3); Squamous Epithelial 0-3 HPF (0-3); WBC/HPF 0-3 HPF (0-3)
[2019-02-17 05:52] LABS: #Basophils 0.1 thou/uL (0.0-0.2); #Eosinphils 0.5 thou/uL (0.0-0.7); #Lymphocytes 3.9 thou/uL (1.20-3.40); #Monocytes 0.7 thou/uL (0.11-0.59); #Neutrophils 4.6 thou/uL (1.40-6.50); %Basophils 0.8 % (0.0-1.0); %Eosinophils 5.2 % (0.0-10.0); %Lymphocytes 40.1 % (21.0-51.0); %Monocytes 7.5 % (0.0-10.0); %Neutrophils 46.4 % (42.0-75.0); Hemoglobin 9.4 g/dL (12.0-16.0); Mean Corpuscular HGB CONC 30.4 g/dL (32.0-36.0); Mean Corpuscular Hemoglobin 22.9 pg (27.0-31.0); Mean Corpuscular Volume 75.2 fL (78.0-98.0); Mean Platelet Volume 7.9 fL (7.4-10.4); Platelet Count 299 thou/uL (130-400); RBC Distribution Width 17.5 % (11.5-14.5); White Blood Cell (WBC) Count 9.8 thou/uL (4.8-10.8)
[2019-02-17 06:11] LABS: Anion Gap 12 mmol/L (10-20); BUN (Urea Nitrogen) 15 mg/dL (9.8-20.1); CRP (Inflammatory) Less than 0.50 mg/dL (= or < 0.5); Calc. Creatinine Clearance 63 mL/min (70-130); Carbon Dioxide 31 mmol/L (23-31); Cardiac Risk 3.6 (Less than 4.5); Chloride 103 mmol/L (98-107); Cholesterol 160 mg/dl (< 200 Desired); Estimated GFR-MDRD 60; Glucose 87 mg/dL (80-115); HDL Cholesterol 44 mg/dL (>60 Neg Risk); LDL Cholesterol, Calculated 86 mg/dL; Potassium 3.6 mmol/L (3.5-5.1); Sodium 142 mmol/L (136-145); Triglycerides 151 mg/dL (Less than 150)
--- NOTE | 2019-02-17 08:28 | RAD ---
EXAM: 3 views of the thoracic spine HISTORY: Thoracic spine pain COMPARISON: None FINDINGS: 3 views of the thoracic spine shows normal height and alignment of the vertebral bodies and intervertebral discs without fracture or subluxation. Moderate osteophytes are seen throughout the thoracic spine. IMPRESSION: No evidence of acute thoracic spine abnormality.
--- NOTE | 2019-02-17 08:33 | RAD ---
XR Cerv Sp Ap Lat STANDARD HISTORY: Neck pain. COMPARISON: None. FINDINGS: There is a slight reversal to the normal cervical curve. Vertebral bodies are normal in hei ght. Prominent anterior osteophytic changes are seen. Mild disc narrowing is seen at C3-4, C4-5, C5-6 and C6-7. There are degenerative facet changes noted. There is no soft tissue swelling present. Carotid bulb calcifications are incidentally seen. IMPRESSION: Moderate osteoarthritic changes of the spine.
[2019-02-17] MEDS: Ondansetron ODT 4 MG TAB PO PRN ×2 (08:52→20:52)
[2019-02-17] MEDS ORDERED: Enoxaparin Sodium 30 MG/0.3 ML SYRINGE SC SCH (09:00)
[2019-02-17] MEDS ORDERED: Mometasone/Formoterol 120 PUFF INHALER INH PRN (09:00)
[2019-02-17 09:36] LABS: Iron 20 ug/dL (50-170); Iron Binding Capacity, Total 458 mcg/dL (265-497)
[2019-02-17] MEDS: Hydrochlorothiazide 25 MG TAB PO SCH (13:35)
[2019-02-17] MEDS: Aspirin Chewable 81 MG TAB PO SCH (13:37)
[2019-02-17] MEDS: Simvastatin 20 MG TAB PO SCH (13:37)
[2019-02-17] MEDS: Famotidine/PF 20 mg/2ml Vial SLOW IVP SCH ×2 (13:37→20:50)
--- NOTE | 2019-02-17 14:36 | PDOC.PN ---
- Subjective Encounter Start Date: 02/17/19 Encounter Start Time: 14:33 Patient lying in bed, she went for stress test this morning, but was not able to tolerate it. She denies chest pain, palpitations or shortness of breath, but does report dizziness with nausea. - Objective Resuscitation Status - Order Detail: 02/16/19 23:32 Resuscitation Status Routine Co-Sign Provider: Resuscitation Status: FULL: Full Resuscitation MAR Reviewed: Yes Vital Signs & Weight: Vital Signs (12 hours) Temp Pulse Resp BP BP Pulse Ox 02/17/19 11:54 98.3 F 51 L 16 140/63 96 02/17/19 07:15 98.1 F 54 L 18 128/59 L 96 02/17/19 04:52 54 L 18 134/61 97 Weight Weight 171 lb 3.2 oz I&O: 02/16/19 02/17/19 02/18/19 06:59 06:59 06:59 Output Total 500 Balance -500 Result Diagrams: 02/17/19 05:39 02/17/19 05:39 Additional Labs: Accuchecks 02/17/19 02/16/19 12:00 22:32 POC Glucose 95 96 Radiology Reviewed by me: Yes Phys Exam - Physical Examination Constitutional: NAD HEENT: moist MMs, oral pharynx no lesions Neck: supple Respiratory: no wheezing, clear to auscultation bilateral Cardiovascular: no significant murmur Bradycardic on monitor Gastrointestinal: soft, positive bowel sounds Musculoskeletal: no edema, pulses present Neurological: non-focal, moves all 4 limbs Lymphatic: no nodes Psychiatric: normal affect, A&O x 3 Skin: normal turgor, cap refill <2 seconds Dx/Plan (1) Bradycardia Code(s): R00.1 - BRADYCARDIA, UNSPECIFIED Status: Acute (2) CAD (coronary artery disease) Code(s): I25.10 - ATHSCL HEART DISEASE OF [place] CORONARY ARTERY W/O ANG PCTRS Status: Acute Qualifiers: Coronary Disease-Associated Artery/Lesion type: [place] artery [place] vs. transplanted heart: [place] heart Comment: RCA and Cx stenosis (3) Chronic anemia Code(s): D64.9 - ANEMIA, UNSPECIFIED Status: Chronic (4) Diabetes type 2, controlled Code(s): E11.9 - TYPE 2 DIABETES MELLITUS WITHOUT COMPLICATIONS Status: Chronic Qualifiers: Diabetes mellitus mcc insulin use: without mcc use Diabetes mellitus complication status: with unspecified complications Qualified Code(s) : E11.8 - Type 2 diabetes mellitus with unspecified complications (5) Dyslipidemia Code(s): E78.5 - HYPERLIPIDEMIA, UNSPECIFIED Status: Chronic (6) Hypertension Code(s): I10 - ESSENTIAL (PRIMARY) HYPERTENSION Status: Chronic Qualifiers: Hypertension type: essential hypertension Qualified Code(s): I10 - Essential (primary) hypertension - Plan cont current plan of care, DVT proph w/lovenox * Hold off on stress test for now as patient nauseated and bradycardic * Discussed case with Dr Fuentes and consult placed * Continue medical management and appreciate recommendations from cardiology standpoint * Troponin negative * She remains bradycardic on the monitor
--- NOTE | 2019-02-17 22:35 | CON ---
DATE OF CONSULTATION: 02/17/2019 REASON FOR CONSULTATION: Chest pressure, abnormal EKG, and bradycardia. PRIMARY GEOTHERMAL HVAC TECHNICIAN: Jose Roberto Pardo MD HISTORY OF PRESENT ILLNESS: Ms. Shirlene Ortiz is a pleasant 63-year-old woman. She was seen here most recently by Dr. Jose Roberto Pardo in 2018 with chest discomfort and shortness of breath. The patient on this occasion came to the emergency room complaining of chest pressure. She said it was under the left breast, went across her chest, then up into the upper back and to the posterior portion of her neck. She said this is being getting progressively worse in the last week. She said this lasts up to 15-30 minutes. She said it usually gets better when she rests. The patient has a history of COPD/asthma. She previously smoked, but stopped in 2013. PAST MEDICAL HISTORY: 1. Type 2 diabetes. 2. Hypertension. 3. Bradycardia. 4. Hyperlipidemia. 5. COPD. PAST SURGICAL HISTORY: Lumbar surgery, hand surgery, cyst removal. SOCIAL HISTORY: Occasional alcohol, no drugs. Quit smoking in 2013. ALLERGIES: TO ELLY INHIBITORS, DEMEROL, DIOVAN, LISINOPRIL, MEPERIDINE. CURRENT MEDICATIONS: 1. Simvastatin. 2. Glipizide. 3. Aspirin. 4. Hydrochlorothiazide. 5. Combivent. 6. Ventolin. PHYSICAL EXAMINATION: GENERAL: This is a pleasant 63-year-old woman, in no distress. VITAL SIGNS: Blood pressure 162/65, pulse 58, it is regular. HEENT: Eyes, sclerae are nonicteric. Mouth, mucous membranes moist. NECK: Supple. No lymphadenopathy. LUNGS: Clear, no wheezing, rales, or rhonchi. CARDIAC: Normal S1, normal S2. There is no murmur, rub, or gallop. She is bradycardic. ABDOMEN: Soft, nontender. EXTREMITIES: No clubbing or cyanosis. There is no edema. Good peripheral pulses. Good posterior tibial and dorsalis pedis pulses. LABORATORY STUDIES: Creatinine is 1.11. Iron level is low at 20. Troponin levels are normal. EKG, sinus bradycardia, inverted T-waves in lead III and aVF. Biphasic T-wave in V3, nonspecific T-waves in V4. The patient on the monitor has had intermittent sinus bradycardia as low in the low 40s. Heart rate was 44 at 6:48 a.m. Heart rate was in high 40s this afternoon. ASSESSMENT: 1. Chest pressure, somewhat suspicious for angina. 2. Sinus bradycardia. 3. Diabetes. 4. Hypertension. 5. Remote history of smoking, she stopped. 6. Anemia, mild, possible iron deficiency. 7. Hypertension. PLAN: 1. She is on aspirin. 2. She is on enoxaparin. We will stop that in case cardiac catheterization is necessary. 3. Stress testing was attempted, but she was unable to do that due to nausea. Test was not performed due to nausea. 4. Keep the patient n.p.o. until Dr. Pardo decides it may be reasonable to proceed with cardiac catheterization versus repeating stress testing which was done in 2016. She does have quite a few risk factors for coronary artery disease. Her cardiac enzymes, however, have been negative. Job ID: [id number]
[2019-02-18] MEDS: Aspirin Chewable 81 MG TAB PO SCH (09:05)
[2019-02-18] MEDS: Famotidine/PF 20 mg/2ml Vial SLOW IVP SCH ×2 (09:05→20:24)
[2019-02-18] MEDS: Simvastatin 20 MG TAB PO SCH (09:06)
[2019-02-18] MEDS: Hydrochlorothiazide 25 MG TAB PO SCH (09:06)
[2019-02-18] MEDS ORDERED: Communication Order-Pharmacy FS SCH (10:15)
[2019-02-18] MEDS ORDERED: Lidocaine 1% (PF) 30 ML VIAL ONE (11:29)
--- NOTE | 2019-02-18 11:49 | PDOC.PN ---
- Subjective Encounter Start Date: 02/18/19 Encounter Start Time: 10:30 Subjective: Patient with mild chest pressure, no more significant pain. No -: SOB. Awaiting cath later today. - Objective Resuscitation Status - Order Detail: 02/16/19 23:32 Resuscitation Status Routine Co-Sign Provider: Resuscitation Status: FULL: Full Resuscitation MAR Reviewed: Yes Vital Signs & Weight: Vital Signs (12 hours) Temp Pulse Resp BP Pulse Ox 02/18/19 07:18 97.9 F 64 16 135/63 96 02/18/19 03:57 98.5 F 48 L 15 138/63 96 Weight Weight 171 lb 3.2 oz I&O: 02/17/19 02/18/19 02/19/19 06:59 06:59 06:59 Intake Total 3127 Output Total 500 1225 Balance -500 1902 Result Diagrams: 02/17/19 05:39 02/17/19 05:39 Additional Labs: Accuchecks 02/18/19 02/18/19 02/17/19 10:38 04:07 21:22 POC Glucose 101 102 131 H 02/17/19 02/17/19 16:43 12:00 POC Glucose 115 H 95 Phys Exam - Physical Examination Constitutional: NAD HEENT: moist MMs Respiratory: no wheezing, no rales, no rhonchi nontender to palpation Cardiovascular: RRR, no significant murmur Gastrointestinal: soft, positive bowel sounds Neurological: non-focal, moves all 4 limbs Psychiatric: normal affect, A&O x 3 Dx/Plan (1) Chest pain Code(s): R07.9 - CHEST PAIN, UNSPECIFIED Status: Acute Qualifiers: Chest pain type: unspecified Qualified Code(s): R07.9 - Chest pain, unspecified Comment: improved, just some pressure now, concerning for possible angina (2) Asthma Code(s): J45.909 - UNSPECIFIED ASTHMA, UNCOMPLICATED Status: Chronic (3) COPD (chronic obstructive pulmonary disease) Status: Chronic (4) Diabetes type 2, controlled Code(s): E11.9 - TYPE 2 DIABETES MELLITUS WITHOUT COMPLICATIONS Status: Chronic Qualifiers: Diabetes mellitus ferry terminal agent insulin use: without halfway use Diabetes mellitus complication status: with unspecified complications Qualified Code(s) : E11.8 - Type 2 diabetes mellitus with unspecified complications (5) Dyslipidemia Code(s): E78.5 - HYPERLIPIDEMIA, UNSPECIFIED Status: Chronic (6) Chronic anemia Code(s): D64.9 - ANEMIA, UNSPECIFIED Status: Chronic (7) Hypertension Code(s): I10 - ESSENTIAL (PRIMARY) HYPERTENSION Status: Chronic Qualifiers: Hypertension type: essential hypertension Qualified Code(s): I10 - Essential (primary) hypertension - Plan cont current plan of care, DVT proph w/lovenox, DVT proph w/SCDs Plan for cath today at noon * . - Discharge Day Encounter end time: 10:40
[2019-02-18] MEDS ORDERED: Atropine Sulfate 1 mg/10 ml Syringe ONE (12:40)
[2019-02-18] MEDS ORDERED: Midazolam HCl 2 mg/2 ml Vial ONE (12:49)
[2019-02-18] MEDS: Sodium Chloride 0.9% 1,000 ML IV SCH (13:02)
[2019-02-18] MEDS ORDERED: Nitroglycerin 4.9 GM Bottle ONE (13:11)
[2019-02-18] MEDS ORDERED: Nitroglycerin 2% Ointment 1 INCH/1 GM Packet ONE (13:13)
[2019-02-18] MEDS ORDERED: Sodium Chloride 0.9% 200 ML IV PRN (13:21)
[2019-02-18] MEDS ORDERED: Nitroglycerin 0.4 MG TAB (25 Tab Bottle) SL PRN (13:21)
[2019-02-18] MEDS ORDERED: Amlodipine 5 MG TAB PO SCH (21:00)
[2019-02-18] MEDS ORDERED: Atorvastatin Calcium 40 MG TAB PO SCH (21:00)
[2019-02-19] MEDS: Sodium Chloride 0.9% 1,000 ML IV SCH ×2 (01:12→15:01)
[2019-02-19] MEDS ORDERED: Clopidogrel Bisulfate 75 MG TAB PO SCH (09:00)
[2019-02-19] MEDS ORDERED: Ezetimibe 10 MG TAB PO SCH (09:00)
[2019-02-19] MEDS ORDERED: IRON SUCROSE COMPLEX 100 MG/5 ML SLOW IVP SCH (09:15)
[2019-02-19] MEDS: Hydrochlorothiazide 25 MG TAB PO SCH (09:17)
[2019-02-19] MEDS: Aspirin Chewable 81 MG TAB PO SCH (09:17)
[2019-02-19] MEDS: Famotidine/PF 20 mg/2ml Vial SLOW IVP SCH (09:18)
[2019-02-19] MEDS ORDERED: diphenhydrAMINE 50 MG/ML VIAL IVP PRN (09:22)
--- NOTE | 2019-02-19 09:44 | EKG ---
Test Reason : BRADYCARDIA Blood Pressure : / mmHG Vent. Rate : 046 BPM Atrial Rate : 046 BPM P-R Int : 118 ms QRS Dur : 088 ms QT Int : 476 ms P-R-T Axes : 019 015 -35 degrees QTc Int : 416 ms Sinus bradycardia T wave abnormality, consider inferior ischemia Abnormal ECG T wave inversion II, III, aVF, flattened T waves V3-V6 Confirmed by DIONE DORSEY DO ([id number]), editor continuity and script BARRON REHMAN ([id number]) on 02/19/2019 9:43:58 AM Referred By: SUNITA Confirmed By:DIONE DORSEY DO
[2019-02-19] MEDS ORDERED: EPINEPHrine 1 MG/ML AMP IM PRN (09:45)
[2019-02-19 09:56] LABS: Anion Gap 12 mmol/L (10-20); BUN (Urea Nitrogen) 12 mg/dL (9.8-20.1); Calc. Creatinine Clearance 64 mL/min (70-130); Calcium 9.9 mg/dL (7.8-10.44); Carbon Dioxide 30 mmol/L (23-31); Chloride 104 mmol/L (98-107); Estimated GFR-MDRD 61; Glucose 92 mg/dL (80-115); Potassium 3.8 mmol/L (3.5-5.1); Sodium 142 mmol/L (136-145)
[2019-02-19] MEDS ORDERED: Iron, Sodium Ferric Gluconate 250 MG in Sodium Chloride 0.9% 100 ML IVPB SCH (10:00)
[2019-02-19] MEDS ORDERED: VASCEPA 1 GM PO SCH (10:15)
[2019-02-19 11:17] VITALS: BP 144/67; TEMP 98.2
--- NOTE | 2019-02-22 16:53 | DIS ---
DATE OF ADMISSION: 02/16/2019 DATE OF DISCHARGE: 02/19/2019 CONDITION: At the time of discharge, stable and improved. DISCHARGE DISPOSITION: Home. PRIMARY CARE PHYSICIAN: Heather Lora MD DISCHARGE MEDICATIONS: 1. Fluticasone/salmeterol one puff daily p.r.n. 2. Glipizide 5 mg daily. 3. Aspirin 81 mg daily. 4. Hydrochlorothiazide 25 mg daily. 5. Imdur 30 mg daily. 6. Ferrous fumarate 324 mg p.o. b.i.d. 7. Zetia 10 mg daily. 8. Plavix 75 mg daily. 9. Amlodipine 5 mg daily. The patient was given samples of Vascepa by ict quality assurance engineer, Dr. Pardo. IN-HOUSE CONSULTATIONS: Cardiology, Dr. Fuentes and Dr. Pardo. PROCEDURES DONE IN HOSPITAL: 1. Cardiac catheterization by Dr. Pardo, which showed 90% lesion on proximal RCA and 90% lesion on mid RCA. 2. X-ray of the thoracic and cervical spine, both of these showed osteoarthritic changes, but nothing acute. HISTORY OF PRESENT ILLNESS: Ms. Ortiz is a pleasant 63-year-old female with past medical history of diabetes, hypertension, dyslipidemia, and COPD, who presented to the emergency room with complaints of left-sided chest pain. Upon presentation, she was hemodynamically stable with a blood pressure of 156/69, pulse of 79, saturating 98% on room air. Her chest x-ray and cardiac enzymes were rather unremarkable. She was found to have several EKG changes that were new from anything prior. She was found to have T-wave inversions. She was admitted to Medicine Team and a stress test was requested. Her creatinine has mildly bumped to 1.30, so she was also started on IV fluids. Please see admission H and P dictated by JAM Veliz for full details. HOSPITAL COURSE: The patient could not tolerate the stress test because of nausea. Cardiology was consulted for the EKG changes and Dr. Fuentes initially saw the patient. She was treated with b.i.d. Lovenox. She underwent a cardiac catheterization by Dr. Pardo, who is her regular ict quality assurance engineer in the outpatient setting. She was found to have RCA disease as dictated above. This was recommended to be medically managed. She was started on Plavix, isosorbide, Zetia, Vascepa, among the new medications. Dr. Pardo also added amlodipine. New medication prescriptions were provided to the patient. She has been seen and evaluated by Dr. Pardo from Cardiology and she is cleared for discharge. She will receive a dose of Vascepa prior to discharge. Samples are provided to her by Dr. Pardo. If she has no reactions to which she will be discharged. She was also found to be anemic with a hemoglobin of 9.4. Her iron studies were checked and she was found to be severely iron deficient. Her iron level was only 20. She also received IV iron 200 mg prior to discharge. Rest of the workup was rather unremarkable. Her triglycerides were found to be elevated at 151, but total cholesterol 186, HDL 86. I have seen and evaluated her prior to discharge. She is feeling well and is eager to go home. Vital signs are stable. Blood pressure 144/67, heart rate 63, and saturating 100% on room air. No acute distress. Chest, clear to auscultation bilaterally. Rate and rhythm are regular. She will follow up with Dr. Pardo in the outpatient setting in 3 to 4 weeks and with primary care physician in 1 to 2 weeks. The patient understood discharge planning. Job ID: [id number]
== END 2019-02-19 17:09 | disposition home or self-care (01) ==
LOC: ERS 18:16 → 2SW 22:05
PROVIDERS: ADMIT Hospitalist; ATTEND Hospitalist
PROC: 4A023N7 Measurement of Cardiac Sampling and Pressure, Left Heart, Percutaneous Approach (ICD-10-PCS; principal; 2019-02-18)
PROC: B2001ZZ Plain Radiography of Single Coronary Artery using Low Osmolar Contrast (ICD-10-PCS; 2019-02-18)
DX: R07.89 Other chest pain (principal); R00.1 Bradycardia, unspecified; R06.02 Shortness of breath; I20.9 Angina pectoris, unspecified; I10 Essential (primary) hypertension; J44.9 Chronic obstructive pulmonary disease, unspecified; E11.9 Type 2 diabetes mellitus without complications; E78.00 Pure hypercholesterolemia, unspecified; E78.5 Hyperlipidemia, unspecified; N17.9 Acute kidney failure, unspecified; D64.9 Anemia, unspecified; M54.2 Cervicalgia; Z79.82 Long term (current) use of aspirin; Z79.899 Other long term (current) drug therapy; Z87.891 Personal history of nicotine dependence; Z88.8 Allergy status to other drugs, medicaments and biological substances
CPT/HCPCS: 72040; 72072; 76942; 80048 ×2; 80061; 80306; 81001; 82550; 82607; 82746; 82962 ×4; 83540; 83550; 83735; 84443; 84484 ×2; 85025; 85379; 85652; 86140; 93005; 93458; 94760; 96361 ×3; 96365; 96366; 96372; 96375; 96376 ×3; 97139 ×2; 99285; C1769; G0378 ×2; 36415; 36416; 99152; J0171; J0461; J1644; J1650; J2001; J2250; J2916; J3490; Q0162; S0028

== ENCOUNTER 2019-04-13 08:10 | Day surgery (SDC) | payer MEDICARE, MEDICAID ==
[2019-04-12 14:23] VITALS: BMI 26.3
--- NOTE | 2019-04-13 07:45 | HP ---
HISTORY OF PRESENT ILLNESS: This 64-year-old female is referred to me for evaluation of iron-deficiency anemia. The patient is status post coronary artery stent placement. The patient was found to have anemia recently. The anemia is microcytic. The bowel movements are regular. There is no history of GI blood loss. The patient has had ulcers in the duodenum in the past which were nonbleeding. The patient comes in for EGD and colonoscopy because of unexplained iron-deficiency anemia. ALLERGIES: MULTIPLE INCLUDING AMLODIPINE, DEMEROL, DICYCLOMINE, LISINOPRIL, . SOCIAL HISTORY: The patient does not smoke. MEDICAL ILLNESSES: 1. Hypertension. 2. Diabetes mellitus. 3. Coronary artery disease, status post . PAST SURGICAL HISTORY: 1. Back surgery x3. 2. Left mastectomy. 3. . PHYSICAL EXAMINATION: VITAL SIGNS: . HEENT: Conjunctivae clear. CARDIOVASCULAR SYSTEM: First and second heart sounds normal. LUNGS: Clear to auscultation. ABDOMEN: Soft. Abdomen is nontender. No organomegaly. No masses. Bowel sounds normal. DIAGNOSIS: Iron-deficiency anemia. There is no history of GI bleeding. PLAN: EGD and colonoscopy. Job ID: [id number]
--- NOTE | 2019-04-13 11:58 | OP ---
DATE OF PROCEDURE: 04/13/2019 PROCEDURE PERFORMED: Colonoscopy. PREOPERATIVE DIAGNOSES: A 64-year-old female with iron deficiency anemia, history of colon polyp, undergoing colonoscopy. POSTOPERATIVE DIAGNOSES: 1. Diffuse telangiectasia of rectum. 2. Retained stool throughout the colon. The exam was suboptimal. No other gross pathology seen. DESCRIPTION OF PROCEDURE: The patient was placed on her left lateral position and was given sedation by Anesthesia Department. A rectal exam was done before the scope was advanced into the rectum. No lesions felt on rectal exam. A Pentax video colonoscope was introduced into the rectum and advanced all the way into the cecum. The prep was less than suboptimal. She had thick dark greenish stool coating the mucosa throughout. Water was irrigated and washed out. The underlying mucosa appeared normal. The quality of prep was not very good and also the exam was suboptimal. The ileocecal area, cecum, ascending colon, no pathology seen. The hepatic flexure, transverse colon, splenic flexure, descending colon, sigmoid colon, no lesion. The rectum showed diffuse telangiectasia of unknown etiology. She also had hemorrhoids. Job ID: [id number]
--- NOTE | 2019-04-13 12:10 | OP ---
DATE OF PROCEDURE: 04/13/2019 PROCEDURE PERFORMED: Esophagogastroduodenoscopy with biopsy. PREOPERATIVE DIAGNOSIS: A 64-year-old female undergoing esophagogastroduodenoscopy because of unexplained iron deficiency anemia. POSTOPERATIVE DIAGNOSES: 1. Normal esophagus. 2. Normal duodenum. 3. Gastric ulcer of the gastric body with gastritis. DESCRIPTION OF PROCEDURE: The patient was placed on her left lateral position and was given sedation by Anesthesia Department. A Pentax video gastroscope under direct vision passed down the oropharynx, past the GE junction into the stomach and subsequently into the descending duodenum. The esophageal mucosa appeared normal. In the GE junction, no pathology seen. The scope was retroflexed to visualize fundus and cardia. No lesion seen at the fundus and cardia. On the gastric body, the patient was found to have ulceration with gastritis. In the incisura angularis and gastric antrum, no pathology seen. Biopsy obtained of the gastric antrum and gastric body. At the duodenal bulb, descending duodenum, no pathology seen. Random biopsies obtained of the descending duodenum because of the iron deficiency anemia. The stomach was decompressed and the scope was removed. DISCHARGE PLANNING: This is a 64-year-old female with no specific GI symptoms, came for a colonoscopy and esophagogastroduodenoscopy. She did have history of colon polyps from before. The esophagogastroduodenoscopy showed gastric ulcer and gastritis. The colonoscopy was a suboptimal prep and the exam was suboptimal. DISCHARGE RECOMMENDATIONS: 1. Omeprazole 40 once a day. 2. We will bring the patient back sometime later on for colonoscopy. Job ID: [id number]
== END 2019-04-13 11:05 | disposition home or self-care (01) ==
LOC: SDC 08:10
PROVIDERS: ATTEND Internal Medicine Gastroenterology
PROC: 0DB68ZX Excision of Stomach, Via Natural or Artificial Opening Endoscopic, Diagnostic (ICD-10-PCS; principal; 2019-04-13)
PROC: 0DB78ZX Excision of Stomach, Pylorus, Via Natural or Artificial Opening Endoscopic, Diagnostic (ICD-10-PCS; 2019-04-13)
PROC: 0DJD8ZZ Inspection of Lower Intestinal Tract, Via Natural or Artificial Opening Endoscopic (ICD-10-PCS; 2019-04-13)
PROC: 0DB98ZX Excision of Duodenum, Via Natural or Artificial Opening Endoscopic, Diagnostic (ICD-10-PCS; 2019-04-13)
DX: D50.9 Iron deficiency anemia, unspecified (principal); K31.89 Other diseases of stomach and duodenum; K64.9 Unspecified hemorrhoids; I78.1 Nevus, non-neoplastic; I10 Essential (primary) hypertension; E11.9 Type 2 diabetes mellitus without complications; I25.10 Atherosclerotic heart disease of native coronary artery without angina pectoris; Z95.5 Presence of coronary angioplasty implant and graft; Z86.010 Personal history of colon polyps; Z88.5 Allergy status to narcotic agent; Z88.8 Allergy status to other drugs, medicaments and biological substances; Z79.82 Long term (current) use of aspirin; Z79.84 Long term (current) use of oral hypoglycemic drugs; Z79.899 Other long term (current) drug therapy
CPT/HCPCS: 88305; 88312

== ENCOUNTER 2019-06-30 13:06 | Observation (INO) | payer MEDICARE, OTHER ==
[2019-06-30] MEDS ORDERED: Albuterol Sulfate 2.5 mg/0.5 ml Neb ONE (14:34)
[2019-06-30] MEDS ORDERED: Albuterol Sulfate 2.5 mg/3 ml Neb ONE (14:34)
[2019-06-30] MEDS ORDERED: Nitroglycerin 0.4 MG TAB (25 Tab Bottle) PO PRN (15:43)
[2019-06-30] MEDS ORDERED: Ondansetron ODT 4 MG TAB PO PRN (15:47)
[2019-06-30] MEDS ORDERED: Ondansetron PF 4 MG/2 ML Vial IVP PRN (15:47)
[2019-06-30] MEDS ORDERED: Bisacodyl 10 MG SUPP PR PRN (15:47)
[2019-06-30] MEDS ORDERED: Senokot S 8.6-50 MG TAB PO PRN (15:47)
[2019-06-30] MEDS ORDERED: Calcium Carbonate 500 MG ChewTAB PO PRN (15:47)
[2019-06-30] MEDS ORDERED: cloNIDine 0.1 MG TAB PO PRN (15:48)
[2019-06-30] MEDS ORDERED: Dextrose 5% in Water 1,000 ML IV PRN (15:51)
[2019-06-30] MEDS ORDERED: Dextrose 50% Abboject 50 ML SYRINGE SLOW IVP PRN (15:51)
[2019-06-30] MEDS ORDERED: Insulin Regular 300 UNITS/3 ML VIAL SC PRN ×2 (15:51)
[2019-06-30] MEDS ORDERED: hydrALAZINE 20 MG/ML VIAL SLOW IVP PRN (15:53)
--- NOTE | 2019-06-30 16:32 | HP ---
PRIMARY CARE PHYSICIAN: Dr. Lora. PRIMARY LAP MACHINE OPERATOR: Dr. Jose Roberto Pardo. CHIEF COMPLAINT: Shortness of breath with chest discomfort. HISTORY OF PRESENT ILLNESS: The patient is a 64-year-old female with coronary artery disease and COPD, presented to [facility] with above complaints. The chest discomfort and shortness of breath started last night. It progressively got worse. It was sudden onset without any aggravating or relieving factor. She has significant wheezing and chest tightness. The chest tightness was mainly under her left breast. Sometimes it was reproducible. It was intermittent. She also felt feverish, however, did not record a temperature. She denies any nausea, vomiting, diaphoresis, or palpitations. No recent immobilization travel reported. She has history of COPD and uses nebulizer rarely. The cough was essentially dry without significant production. She denies any orthopnea, paroxysmal nocturnal dyspnea, or leg swelling. She is compliant with all of her medications including aspirin and Plavix. At [facility], her vital signs showed temperature 97.2, respirations of 30, pulse rate of 93 with a blood pressure of 190/93 with O2 saturation of 98% on room air. The patient was in mild distress. X-ray was negative for infiltrate. She received IV ceftriaxone, azithromycin along with nebulizer treatment. She also received aspirin and nitroglycerin patch. Chest discomfort has improved. PAST MEDICAL HISTORY: 1. Coronary artery disease involving the RCA. The patient had a last cardiac catheterization in January of 2019. Plan was medical management. 2. COPD. 3. Diabetes mellitus type 2, diet controlled. 4. Hypertension. 5. Hyperlipidemia. 6. Peptic ulcer disease. PAST SURGICAL HISTORY: 1. Cardiac catheterization. 2. Lumbar surgery x3. 3. Hand surgery. 4. Cyst removal. 5. EGD. ALLERGIES: THE PATIENT IS ALLERGIC TO MULTIPLE MEDICATIONS INCLUDING TYLENOL, ELLY INHIBITOR, DARVOCET, DIOVAN, AND DEMEROL. CURRENT HOME MEDICATIONS: The patient is unable to recall all of her medications. Family to bring accurate list of medications, probably later tonight or in a.m. SOCIAL HISTORY: The patient quit smoking. Denies current use of drug use. Drinks alcohol socially. She is full code and makes her own decision with the help of her family. FAMILY HISTORY: Negative for premature coronary artery disease. REVIEW OF SYSTEMS: All other review of systems was reviewed and was found negative. PHYSICAL EXAMINATION: VITAL SIGNS: As discussed above. GENERAL: A 64-year-old female in mild respiratory distress, able to complete short sentences. HEENT: Head, atraumatic and normocephalic. Sclerae anicteric. Moist mucous membranes. No oral lesion. NECK: Supple. No JVD. No carotid bruit. LUNGS: Showed good air entry bilaterally with scattered wheezing. Minimal accessory muscle use. There was scattered rhonchi. No rales noted. HEART: S1, S2 present. Regular rate and rhythm. No rubs or gallops. ABDOMEN: Soft, nontender. Bowel sounds present. No rebound or guarding. No costovertebral angle tenderness. EXTREMITIES: No edema or calf tenderness. NEUROLOGIC: Grossly nonfocal. Moves all 4 extremities. PSYCHIATRY: Alert, awake, oriented x3. SKIN: Warm and dry. LYMPH NODE: No palpable lymph nodes in the neck. PERIPHERAL VASCULAR: Radial pulses palpable bilaterally. MUSCULOSKELETAL: No joint swelling or tenderness. LABORATORY FINDINGS: WBC 10.4 with hemoglobin 12.8, hematocrit 43.7, platelet 235. Chemistry showed sodium 143, potassium 3.5, chloride 103, bicarb of 27. Lactic acid was normal. BUN 10, creatinine 1.08. Troponin x2 has been negative. LFTs in normal range. IMAGING STUDIES: Chest x-ray by my review was negative for infiltrate or edema. EKG by my review showed sinus rhythm without significant ST-T wave changes. There were nonspecific ST-T wave changes in the inferior leads. IMPRESSION: 1. Shortness of breath secondary to chronic obstructive pulmonary disease exacerbation. 2. Chest discomfort, rule out acute coronary syndrome. 3. Coronary artery disease involving the RCA. 4. Chronic kidney disease, stage 2. 5. Diabetes mellitus type 2, diet controlled. 6. Hypertension. 7. Hyperlipidemia. PLAN: The patient will be monitored on the telemetry unit. We will continue IV steroids. Schedule nebulizer treatments. We will continue IV Solu-Medrol. We will continue IV antibiotics for COPD exacerbation. GI prophylaxis while on steroids. Consult Cardiology, Dr. Jose Roberto Pardo in a.m. Serial troponins. We will continue aspirin, Plavix, Imdur. Nitroglycerin p.r.n. as needed. Plan of care was discussed with the patient in detail, she stated understanding. Job ID: [id number]
[2019-06-30 17:20] VITALS: BMI 25.4
[2019-06-30 17:55] LABS: Troponin I Less than 0.010 ng/mL (< 0.028)
[2019-06-30] MEDS ORDERED: methylPREDNISolone Sod Succ 40 MG VIAL IVP SCH (18:00)
[2019-06-30] MEDS: Doxycycline 100 MG CAP PO SCH (21:17)
[2019-06-30] MEDS: guaiFENesin ER 600 MG TAB PO SCH (21:17)
[2019-06-30] MEDS: Famotidine 20 MG TAB PO SCH (21:17)
[2019-06-30] MEDS: traMADol HCl 50 MG TAB PO PRN (22:11)
[2019-07-01 05:47] LABS: #Lymphocytes 1.5 thou/uL (1.20-3.40); #Monocytes 0.7 thou/uL (0.11-0.59); #Neutrophils 12.1 thou/uL (1.40-6.50); %Eosinophils 0.1 % (0.0-10.0); %Lymphocytes 10.3 % (21.0-51.0); %Monocytes 4.9 % (0.0-10.0); %Neutrophils 84.7 % (42.0-75.0); Mean Corpuscular Hemoglobin 26.9 pg (27.0-31.0); Mean Corpuscular Volume 83.9 fL (78.0-98.0); Mean Platelet Volume 8.9 fL (7.4-10.4); Platelet Count 249 thou/uL (130-400); RBC Distribution Width 17.1 % (11.5-14.5); Red Blood Cell (RBC) Count 4.84 mill/uL (4.20-5.40); White Blood Cell (WBC) Count 14.3 thou/uL (4.8-10.8)
[2019-07-01 06:08] LABS: Anion Gap 15 mmol/L (10-20); BUN (Urea Nitrogen) 17 mg/dL (9.8-20.1); Calc. Creatinine Clearance 57 mL/min (70-130); Calcium 10.4 mg/dL (7.8-10.44); Carbon Dioxide 29 mmol/L (23-31); Chloride 102 mmol/L (98-107); Estimated GFR-MDRD 58; Glucose 137 mg/dL (80-115); Potassium 3.9 mmol/L (3.5-5.1); Sodium 142 mmol/L (136-145)
[2019-07-01] MEDS: Doxycycline 100 MG CAP PO SCH ×2 (11:43→20:54)
[2019-07-01] MEDS: traMADol HCl 50 MG TAB PO PRN (11:43)
[2019-07-01] MEDS: Ezetimibe 10 MG TAB PO SCH (11:43)
[2019-07-01] MEDS: Famotidine 20 MG TAB PO SCH ×2 (11:44→20:55)
[2019-07-01] MEDS: Saccharomyces boulardii 250 MG CAP PO SCH (11:44)
[2019-07-01] MEDS: Aspirin 81 mg Enteric Coated Tablet PO SCH (11:44)
[2019-07-01] MEDS: Clopidogrel Bisulfate 75 MG TAB PO SCH (11:44)
[2019-07-01] MEDS: guaiFENesin ER 600 MG TAB PO SCH ×2 (11:44→20:55)
[2019-07-01] MEDS: predniSONE 20 MG TAB PO SCH ×2 (11:46→16:40)
[2019-07-01] MEDS ORDERED: cefTRIAXone\\ROCEPHIN 1 GM in Sodium Chloride 0.9% 100 ML IVPB SCH (16:00)
[2019-07-01] MEDS ORDERED: Polyethylene Glycol 3350 17 GM Packet PO PRN (16:46)
--- NOTE | 2019-07-01 17:42 | CON ---
DATE OF CONSULTATION: 07/01/2019 REASON FOR CONSULTATION: Chest pain. HISTORY OF PRESENT ILLNESS: Ms. Ortiz is a pleasant 64-year-old female, who comes to the hospital for shortness of breath. She has COPD and was diagnosed with COPD exacerbation. She had an EKG that showed inferior changes suggestive of ischemia, so Cardiology is being consulted for this. She has a history of coronary artery disease. She has had two heart catheterizations as above for the same thing. The last time was in January of this year. She had an occluded RCA that fills collaterals from the LAD. Her last catheterization was just 3 to 4 months ago and it was stable. More than likely her EKG changes are from her occluded RCA. Currently, she denies any chest pain, tightness, pressure. Her shortness of breath is still there, but has improved after nebulizer treatments and steroid injections. PAST MEDICAL HISTORY: 1. Coronary artery disease with occluded RCA. 2. COPD. 3. Type 2 diabetes. 4. Hypertension. 5. Hyperlipidemia. 6. Peptic ulcer disease. PAST SURGICAL HISTORY: 1. Cardiac catheterization twice in the past. 2. Lumbar surgery. 3. Hand surgery. 4. Cyst removal. 5. EGD. OUTPATIENT MEDICATIONS: 1. Vascepa. 2. Hydrochlorothiazide 12.5 mg daily. 3. Ferrous fumarate. 4. Aspirin 81 a day. 5. Ranitidine. 6. Zetia 10 mg a day. 7. Imdur 60 mg a day. 8. Plavix 75 mg a day. ALLERGIES: 1. ELLY INHIBITORS. 2. DARVOCET. 3. LIPITOR. 4. DEMEROL. 5. DIOVAN. SOCIAL HISTORY: Quit smoking. No drug or alcohol use. FAMILY HISTORY: Noncontributory. REVIEW OF SYSTEMS: 12-point review of systems was also negative unless stated in the history of present illness. PHYSICAL EXAMINATION: VITAL SIGNS: Temperature 98.5, pulse 61, respiratory rate 18, saturations 95% on room air, and blood pressure 180/85. GENERAL: Awake, alert, oriented x3. No distress. HEENT: Normocephalic and atraumatic. NECK: Supple. LUNGS: Have reduced breath sounds bilaterally. CARDIOVASCULAR: S1 and S2. No murmurs. ABDOMEN: Soft. Positive bowel sounds. EXTREMITIES: No edema. SKIN: Warm and dry. LABORATORY DATA: Laboratory work was reviewed. CBC with a white count of 14, hemoglobin 13, hematocrit 40, and platelet count of 249. Chemistries; sodium of 142, potassium 3.9, creatinine 1.14, GFR 58. Troponin is undetectable. ASSESSMENT AND PLAN: 1. Shortness of breath, likely from her chronic obstructive pulmonary disease exacerbation. 2. Coronary artery disease, stable. No acute coronary syndrome. EKG with inferior changes, likely related to her occluded right coronary artery and these are chronic changes. 3. No plan on any cardiac intervention at this time. CV is stable, likely this is related to her chronic obstructive pulmonary disease. Thank you for letting me to participate in the care of your patient. We will follow. Job ID: [id number]
[2019-07-01] MEDS: Cefdinir 300 MG CAP PO SCH (20:55)
[2019-07-01] MEDS: Senokot S 8.6-50 MG TAB PO SCH (20:55)
--- NOTE | 2019-07-01 22:22 | PDOC.HOSPP ---
- Subjective Encounter Date: 07/01/19 Encounter Time: 16:00 Subjective: Patient seen and examined for COPD Exacerbation/CP. SOB improving. Intermittent lightheadedness. No other complaints. No overnight events - Objective Vital Signs & Weight: Vital Signs (12 hours) Temp Pulse Resp BP Pulse Ox 07/01/19 22:12 70 16 94 L 07/01/19 20:50 98.6 F 77 16 160/70 H 93 L 07/01/19 18:38 85 16 95 07/01/19 11:31 98.5 F 61 18 180/85 H 95 07/01/19 10:34 85 18 Weight Weight 161 lb 3.2 oz I&O: 06/30/19 07/01/19 07/02/19 06:59 06:59 06:59 Intake Total 710 1040 Output Total 600 Balance 110 1040 Result Diagrams: 07/01/19 05:16 07/01/19 05:16 Additional Labs: Accuchecks 07/01/19 07/01/19 07/01/19 20:56 16:52 11:01 POC Glucose 127 H 107 115 H EKG Reviewed by me: Yes (Tele SR) Hospitalist ROS - Review of Systems Cardiovascular: reports: light headedness. denies: chest pain, palpitations, orthopnea, paroxysmal noc. dyspnea, edema, other Gastrointestinal: denies: nausea, vomiting, abdominal pain, diarrhea, constipation, melena, hematochezia, other - Medication Medications: Active Medications Generic Name Dose Route Start Last Admin Trade Name Freq PRN Reason Stop Dose Admin Albuterol/Ipratropium 3 ml 06/30/19 18:30 07/01/19 22:12 Duoneb NEB 3 ml [id number] TOMMIE Administration Aspirin 81 mg 07/01/19 09:00 07/01/19 11:44 Ecotrin PO 81 mg DAILY TOMMIE Administration Cefdinir 300 mg 07/01/19 21:00 07/01/19 20:55 Omnicef PO 300 mg BID TOMMIE Administration Clopidogrel Bisulfate 75 mg 07/01/19 09:00 07/01/19 11:44 Plavix PO 75 mg DAILY TOMMIE Administration Doxycycline Hyclate 100 mg 06/30/19 21:00 07/01/19 20:54 Vibramycin PO 100 mg BID TOMMIE Administration Ezetimibe 10 mg 07/01/19 09:00 07/01/19 11:43 Zetia PO 10 mg DAILY TOMMIE Administration Famotidine 20 mg 06/30/19 21:00 07/01/19 20:55 Pepcid PO 20 mg BID TOMMIE Administration Guaifenesin 600 mg 06/30/19 21:00 07/01/19 20:55 Mucinex PO 600 mg Q12HR TOMMIE Administration Isosorbide Mononitrate 60 mg 07/01/19 09:00 07/01/19 11:44 Imdur PO 60 mg DAILY TOMMIE Administration Prednisone 20 mg 07/01/19 08:00 07/01/19 16:40 Prednisone PO 20 mg BID-WM TOMMIE Administration Saccharomyces Boulardii 250 mg 07/01/19 09:00 07/01/19 11:44 Florastor PO 250 mg DAILY TOMMIE Administration Senna/Docusate Sodium 1 tab 07/01/19 21:00 07/01/19 20:55 Senokot S PO 1 tab BID TOMMIE Administration Tramadol HCl 50 mg 06/30/19 15:40 07/01/19 11:43 Ultram PO 50 mg Q4H PRN Administration Moderate Pain (4-6) - Exam General Appearance: NAD Neck: supple, no JVD Heart: RRR, no gallops, no rubs, normal peripheral pulses Respiratory: no wheezes, no rales, normal chest expansion, rhonchi Gastrointestinal: soft, non-tender, non-distended, normal bowel sounds Extremities: no cyanosis, no clubbing, no edema Neurological: no new deficit Psychiatric: normal affect, A&O x 3 Hosp A/P - Plan DVT proph w/SCDs 1. Shortness of breath secondary to COPD exacerbation. 2. Chest discomfort. Troponins negative. 3. Coronary artery disease involving the RCA. 4. Chronic kidney disease, stage 2. 5. Diabetes mellitus type 2, diet controlled. 6. Hypertension. 7. Hyperlipidemia. 8. Leucocytosis - prob due to steroids PLAN: Change Atbx to PO Change steroids to PO Await Cardio input Walking program Cont Nebs DC home if ok with Cardiology later today or in AM Echo pending
[2019-07-02] MEDS: Famotidine 20 MG TAB PO SCH ×2 (09:35→21:09)
[2019-07-02] MEDS: Doxycycline 100 MG CAP PO SCH (09:35)
[2019-07-02] MEDS: Clopidogrel Bisulfate 75 MG TAB PO SCH (09:35)
[2019-07-02] MEDS: Senokot S 8.6-50 MG TAB PO SCH ×2 (09:35→21:08)
[2019-07-02] MEDS: guaiFENesin ER 600 MG TAB PO SCH ×2 (09:35→21:08)
[2019-07-02] MEDS: Ezetimibe 10 MG TAB PO SCH (09:35)
[2019-07-02] MEDS: Saccharomyces boulardii 250 MG CAP PO SCH (09:36)
[2019-07-02] MEDS: Cefdinir 300 MG CAP PO SCH ×2 (09:36→21:08)
[2019-07-02] MEDS: predniSONE 20 MG TAB PO SCH (09:36)
[2019-07-02] MEDS: Aspirin 81 mg Enteric Coated Tablet PO SCH (09:36)
[2019-07-02] MEDS ORDERED: Meclizine HCl 25 MG TAB PO SCH (10:15)
[2019-07-02] MEDS ORDERED: Amlodipine 5 MG TAB PO SCH ×2 (13:15→21:00)
[2019-07-02] MEDS ORDERED: hydrALAZINE 20 MG/ML VIAL SLOW IVP SCH (16:00)
[2019-07-02] MEDS ORDERED: Hydrochlorothiazide 25 MG TAB PO SCH (16:30)
[2019-07-02] MEDS: Meclizine HCl 25 MG TAB PO SCH (17:38)
--- NOTE | 2019-07-02 17:56 | PDOC.CPN ---
- Subjective Date: 07/02/19 Time: 17:54 Interval history: Doing better. Breathing better. BP high likely from steroids. - Review of Systems General: denies: fever/chills, weight/appetite/sleep changes, night sweats, fatigue Respiratory: denies: cough, congestion, shortness of breath, exercise intolerance Cardiovascular: denies: chest pain, palpitation, edema, paroxysmal nocturnal dyspnea, orthopnea Gastrointestinal: denies: nausea, vomiting, diarrhea, constipation, abd pain, GI bleeding Musculoskeletal: denies: pain, tenderness, stiffness, swelling, arthritis/ arthralgias Neurological: denies: numbness, syncope, seizure, weakness - Objective Allergies/Adverse Reactions: Allergies Allergy/AdvReac Type Severity Reaction Status Date / Time ELLY Inhibitors Allergy Anaphylaxis Verified 06/30/19 17:11 acetaminophen Allergy Anaphylaxis Verified 06/30/19 17:11 [From Darvocet-N 100] atorvastatin [From Lipitor] Allergy Verified 06/30/19 17:11 meperidine HCl [From Demerol] Allergy Anaphylaxis Verified 06/30/19 17:11 propoxyphene napsylate Allergy Anaphylaxis Verified 06/30/19 17:11 [From Darvocet-N 100] valsartan [From Diovan] Allergy Anaphylaxis Verified 06/30/19 17:11 Visit Medications: Current Medications Albuterol/Ipratropium (Duoneb) 3 ml NEB [id number] [facility] Last Admin: 07/02/19 14:29 Dose: 3 ml Albuterol/Ipratropium (Duoneb) 3 ml NEB [id number] PRN PRN Reason: SOB &/or Wheezing Amlodipine Besylate (Norvasc) 2.5 mg PO BID [facility] Aspirin (Ecotrin) 81 mg PO DAILY [facility] Last Admin: 07/02/19 09:36 Dose: 81 mg Bisacodyl (Dulcolax) 10 mg AK DAILYPRN PRN PRN Reason: Constipation Calcium Carbonate (Tums) 1,000 mg PO Q4H PRN PRN Reason: Heartburn or Indigestion Cefdinir (Omnicef) 300 mg PO BID [facility] Last Admin: 07/02/19 09:36 Dose: 300 mg Clonidine (Catapres) 0.1 mg PO Q4H PRN PRN Reason: SBP Greater Than 180 Clopidogrel Bisulfate (Plavix) 75 mg PO DAILY [facility] Last Admin: 07/02/19 09:35 Dose: 75 mg Dextrose/Water (Dextrose 50%) 25 gm SLOW IVP PRN PRN PRN Reason: Hypoglycemia Doxycycline Hyclate (Vibramycin) 100 mg PO BID [facility] Last Admin: 07/02/19 09:35 Dose: 100 mg Ezetimibe (Zetia) 10 mg PO DAILY [facility] Last Admin: 07/02/19 09:35 Dose: 10 mg Famotidine (Pepcid) 20 mg PO BID [facility] Last Admin: 07/02/19 09:35 Dose: 20 mg Glucagon (Glucagon) 1 mg IM PRN PRN PRN Reason: Hypoglycemia Guaifenesin (Mucinex) 600 mg PO Q12HR [facility] Last Admin: 07/02/19 09:35 Dose: 600 mg Hydralazine HCl (Apresoline) 5 mg SLOW IVP Q4H PRN PRN Reason: SBP Greater Than 180 Hydralazine HCl (Apresoline) 5 mg SLOW IVP NOW [facility] Stop: 07/02/19 18:00 Last Admin: 07/02/19 17:20 Dose: Not Given Hydrochlorothiazide (Hydrochlorothiazide) 12.5 mg PO QAM [facility] Hydrochlorothiazide (Hydrochlorothiazide) 12.5 mg PO NOW [facility] Stop: 07/02/19 18:30 Last Admin: 07/02/19 17:38 Dose: 12.5 mg Dextrose/Water (D5w) 1,000 mls @ 0 mls/hr IV .Q0M PRN PRN Reason: Hypoglycemia Insulin Human Regular (Humulin R) 0 units SC .MILD SLIDING SCALE PRN PRN Reason: Mild Correctional Scale Insulin Human Regular (Humulin R) 0 units SC .BEDTIME SLIDING SC PRN PRN Reason: Bedtime Correctional Scale Isosorbide Mononitrate (Imdur) 60 mg PO DAILY [facility] Last Admin: 07/02/19 09:35 Dose: 60 mg Meclizine HCl (Antivert) 25 mg PO BID-[facility] Last Admin: 07/02/19 17:38 Dose: 25 mg Nitroglycerin (Nitrostat) 0.4 mg PO Q5MIN PRN PRN Reason: Chest Pain Ondansetron HCl (Zofran Odt) 4 mg PO Q6H PRN PRN Reason: Nausea/Vomiting Last Admin: 07/02/19 10:40 Dose: 4 mg Ondansetron HCl (Zofran) 4 mg IVP Q6H PRN PRN Reason: Nausea/Vomiting Polyethylene Glycol (Miralax) 17 gm PO DAILYPRN PRN PRN Reason: Constipation Prednisone (Prednisone) 20 mg PO QAM-WM TOMMIE Saccharomyces Boulardii (Florastor) 250 mg PO DAILY TOMMIE Last Admin: 07/02/19 09:36 Dose: 250 mg Senna/Docusate Sodium (Senokot S) 2 tab PO BIDPRN PRN PRN Reason: Constipation Senna/Docusate Sodium (Senokot S) 1 tab PO BID TOMMIE Last Admin: 07/02/19 09:35 Dose: 1 tab Sodium Chloride (Flush - Normal Saline) 10 ml IVF PRN PRN PRN Reason: Saline Flush Tramadol HCl (Ultram) 50 mg PO Q4H PRN PRN Reason: Moderate Pain (4-6) Last Admin: 07/01/19 11:43 Dose: 50 mg Vital Signs & Weight: Vital Signs Temp Pulse Resp BP Pulse Ox 07/02/19 17:20 67 07/02/19 15:27 98.1 F 67 20 165/77 H 90 L 07/02/19 14:29 93 20 94 L 07/02/19 14:12 72 07/02/19 11:53 98.5 F 72 18 175/72 H 90 L 07/02/19 11:13 75 16 93 L 07/02/19 07:49 98.5 F 75 16 182/75 H 92 L 07/02/19 07:38 97 07/02/19 07:35 46 L 20 97 Weight 163 lb 11.2 oz - Physical Exam General: alert & oriented x3 HEENT: mucus membranes moist Neck: supple neck Cardiac: regular rate and rhythm, no murmur Lungs: clear to auscultation Neuro: grossly intact Abdomen: active bowel sounds Extremities: no edema Skin: clear Musculoskeletal: no pain - Labs Result Diagrams: 07/01/19 05:16 07/01/19 05:16 Troponin/CKMB Troponin I Less than 0.010 ng/mL (< 0.028) 06/30/19 17:19 - Telemetry Sinus rhythms and dysrhythmias: sinus rhythm - Assessment/Plan Assessment/Plan: 1. COPD exacerbation. 2. CAD, stable NO ACS. 3. HTN PLAN: - Agree with up titrating amlodipine. - May discharge home at any time from cardiac perspective. - Follow up in the office in 1-2 months. - Will sign off. Please call with any questions.
--- NOTE | 2019-07-02 19:32 | PDOC.HOSPP ---
- Subjective Encounter Date: 07/02/19 Encounter Time: 10:30 Subjective: Patient seen and examined for CP/COPD Exacerbation. SOB improving. No CP. Dizziness/Vertigo +. No other complaints. No focal deficits. No overnight events - Objective Vital Signs & Weight: Vital Signs (12 hours) Temp Pulse Resp BP Pulse Ox 07/02/19 18:49 93 16 92 L 07/02/19 17:20 67 07/02/19 15:27 98.1 F 67 20 165/77 H 90 L 07/02/19 14:29 93 20 94 L 07/02/19 14:12 72 07/02/19 11:53 98.5 F 72 18 175/72 H 90 L 07/02/19 11:13 75 16 93 L 07/02/19 07:49 98.5 F 75 16 182/75 H 92 L 07/02/19 07:38 97 07/02/19 07:35 46 L 20 97 Weight Weight 163 lb 11.2 oz I&O: 07/01/19 07/02/19 07/03/19 06:59 06:59 06:59 Intake Total 710 1520 Output Total 600 900 Balance 110 620 Result Diagrams: 07/01/19 05:16 07/01/19 05:16 Additional Labs: Accuchecks 07/02/19 07/02/19 07/02/19 17:10 10:47 05:47 POC Glucose 134 H 116 H 111 H 07/01/19 20:56 POC Glucose 127 H EKG Reviewed by me: Yes (Tele SR) Hospitalist ROS - Review of Systems Respiratory: denies: cough, dry, shortness of breath, hemoptysis, SOB with excertion, pleuritic pain, sputum, wheezing, other Cardiovascular: denies: chest pain, palpitations, orthopnea, paroxysmal noc. dyspnea, edema, light headedness, other - Medication Medications: Active Medications Generic Name Dose Route Start Last Admin Trade Name Freq PRN Reason Stop Dose Admin Albuterol/Ipratropium 3 ml 06/30/19 18:30 07/02/19 18:49 Duoneb NEB 3 ml [id number] TOMMIE Administration Aspirin 81 mg 07/01/19 09:00 07/02/19 09:36 Ecotrin PO 81 mg DAILY TOMMIE Administration Cefdinir 300 mg 07/01/19 21:00 07/02/19 09:36 Omnicef PO 300 mg BID [facility] Administration Clopidogrel Bisulfate 75 mg 07/01/19 09:00 07/02/19 09:35 Plavix PO 75 mg DAILY [facility] Administration Doxycycline Hyclate 100 mg 06/30/19 21:00 07/02/19 09:35 Vibramycin PO 100 mg BID [facility] Administration Ezetimibe 10 mg 07/01/19 09:00 07/02/19 09:35 Zetia PO 10 mg DAILY TOMMIE Administration Famotidine 20 mg 06/30/19 21:00 07/02/19 09:35 Pepcid PO 20 mg BID [facility] Administration Guaifenesin 600 mg 06/30/19 21:00 07/02/19 09:35 Mucinex PO 600 mg Q12HR [facility] Administration Isosorbide Mononitrate 60 mg 07/01/19 09:00 07/02/19 09:35 Imdur PO 60 mg DAILY [facility] Administration Meclizine HCl 25 mg 07/02/19 17:00 07/02/19 17:38 Antivert PO 25 mg BID-WM [facility] Administration Ondansetron HCl 4 mg 06/30/19 15:47 07/02/19 10:40 Zofran Odt PO 4 mg Q6H PRN Administration Nausea/Vomiting Saccharomyces Boulardii 250 mg 07/01/19 09:00 07/02/19 09:36 Florastor PO 250 mg DAILY [facility] Administration Senna/Docusate Sodium 1 tab 07/01/19 21:00 07/02/19 09:35 Senokot S PO 1 tab BID [facility] Administration Tramadol HCl 50 mg 06/30/19 15:40 07/01/19 11:43 Ultram PO 50 mg Q4H PRN Administration Moderate Pain (4-6) - Exam General Appearance: NAD Neck: supple, no JVD Heart: RRR, no gallops Respiratory: CTAB, no rales Gastrointestinal: soft, non-tender, normal bowel sounds Extremities: no edema Hosp A/P - Plan DVT proph w/SCDs 1. COPD exacerbation. 2. CP. Troponins negative. 3. Coronary artery disease involving the RCA. 4. Chronic dizziness/vertigo 5. Diabetes mellitus type 2, diet controlled. 6. Hypertension. 7. Hyperlipidemia. 8. Leucocytosis - prob due to steroids 9. Chronic kidney disease, stage 2. PLAN: Add Meclizine Taper steroids Add Amlodipine Cont Imdur Cont Nebs PRN DC home later today once dizziness/Vertigo/BP improves Echo reviewed
[2019-07-02] MEDS: Amlodipine 5 MG TAB PO SCH (21:09)
[2019-07-03] MEDS ORDERED: predniSONE 20 MG TAB PO SCH ×2 (08:00)
[2019-07-03] MEDS: Amlodipine 5 MG TAB PO SCH (08:19)
[2019-07-03] MEDS: Meclizine HCl 25 MG TAB PO SCH (08:19)
[2019-07-03] MEDS: Aspirin 81 mg Enteric Coated Tablet PO SCH (08:20)
[2019-07-03] MEDS: Famotidine 20 MG TAB PO SCH (08:20)
[2019-07-03] MEDS: Clopidogrel Bisulfate 75 MG TAB PO SCH (08:20)
[2019-07-03] MEDS: Ezetimibe 10 MG TAB PO SCH (08:20)
[2019-07-03] MEDS: guaiFENesin ER 600 MG TAB PO SCH (08:20)
[2019-07-03] MEDS: Cefdinir 300 MG CAP PO SCH (08:20)
[2019-07-03] MEDS: Saccharomyces boulardii 250 MG CAP PO SCH (08:21)
[2019-07-03] MEDS: Senokot S 8.6-50 MG TAB PO SCH (08:21)
[2019-07-03] MEDS ORDERED: Hydrochlorothiazide 25 MG TAB PO SCH (09:00)
[2019-07-03] MEDS ORDERED: Amlodipine 5 MG TAB PO SCH (09:00)
[2019-07-03 11:18] VITALS: BP 131/60; TEMP 98.6
--- NOTE | 2019-07-03 12:52 | DIS ---
DATE OF ADMISSION: 06/30/2019 DATE OF DISCHARGE: 07/03/2019 DISCHARGE DISPOSITION: Home. DISCHARGE FOLLOWUP: 1. Follow up with primary care physician, Dr. Lora, in 1 week. 2. Follow up with Cardiology, Dr. Carrasco, as scheduled. 3. Follow up with ENT, Dr. Juanjose Turner, for intermittent dizziness/vertigo. DISCHARGE INSTRUCTIONS: The patient was advised to monitor her blood pressure on a daily basis. DISCHARGE CONDITION: The patient was seen and examined on the day of discharge. Denies any new complaints. Shortness of breath has significantly improved. The patient denies any chest pain or dizziness. DISCHARGE MEDICATIONS: 1. Albuterol inhaler as needed. 2. Amlodipine 2.5 mg daily. 3. Aspirin 81 mg daily. 4. Omnicef 300 mg twice a day for 3 days. 5. Plavix 75 mg daily. 6. Zetia 10 mg daily. 7. Meclizine as needed. 8. Prednisone 10 mg twice daily for next 3 days. 9. Mucinex twice a day for next 10 days. 10. Imdur ER 60 mg daily. 11. Ranitidine 150 mg b.i.d. 12. Hydrochlorothiazide 12.5 mg daily. 13. Ferrous fumarate 324 mg 3 times a day. 14. Vascepa 2 g b.i.d. INPATIENT POLYSOMNOGRAPHY TECHNOLOGIST: Cardiology, Dr. Carrasco. BRIEF HOSPITAL COURSE: The patient is a 64-year-old female with coronary artery disease, COPD, hypertension, and hyperlipidemia, presented to the hospital with shortness of breath along with chest discomfort. A workup was consistent with COPD exacerbation. She was started on antibiotic and steroid along with O2 supplementation with good response. Steroid has been changed to oral. Due to chest discomfort, the patient was seen by Dr. Carrasco. Her troponins were negative. She underwent an echocardiogram that showed left ventricular ejection fraction 50% to 55% with grade 1 of 3 diastolic dysfunction and mildly dilated right ventricle with normal right ventricular systolic function. Amlodipine has been added due to uncontrolled blood pressure. Her blood pressure on the day of discharge is 131/60. She has been cleared by Cardiology for discharge. Her O2 saturation on room air was 92% to 94%. FINAL DIAGNOSES: 1. Chronic obstructive pulmonary disease exacerbation. 2. Atypical chest pain. 3. Coronary artery disease involving the RCA. 4. Chronic dizziness/vertigo. An outpatient followup with ENT is recommended. 5. Diabetes mellitus type 2, diet controlled. 6. Hypertension. 7. Hyperlipidemia. 8. Chronic kidney disease, stage 2. 9. Leukocytosis probably secondary to steroids. PLAN: Plan was discussed with the patient in detail. She stated understanding. Job ID: [id number]
== END 2019-07-03 14:54 | disposition home or self-care (01) ==
LOC: ERS 13:06 → 2SW 15:30
PROVIDERS: ADMIT Internal Medicine; ATTEND Internal Medicine
DX: J44.1 Chronic obstructive pulmonary disease with (acute) exacerbation (principal); R07.89 Other chest pain; I25.10 Atherosclerotic heart disease of native coronary artery without angina pectoris; I12.9 Hypertensive chronic kidney disease with stage 1 through stage 4 chronic kidney disease, or unspecified chronic kidney disease; E11.22 Type 2 diabetes mellitus with diabetic chronic kidney disease; N18.2 Chronic kidney disease, stage 2 (mild); E78.5 Hyperlipidemia, unspecified; D72.829 Elevated white blood cell count, unspecified; Z79.82 Long term (current) use of aspirin; Z79.84 Long term (current) use of oral hypoglycemic drugs; Z79.899 Other long term (current) drug therapy; Z87.891 Personal history of nicotine dependence; Z88.5 Allergy status to narcotic agent; Z88.8 Allergy status to other drugs, medicaments and biological substances
CPT/HCPCS: 80048; 82962 ×4; 83735; 84484; 85025; 93005; 93306; 94640 ×5; 96374; 96375; 97139 ×2; 99285; G0378 ×4; 36415; 36416; J2920; J7512; J7611; J7620; J8597; Q0162

== ENCOUNTER 2020-01-11 09:18 | Outpatient (CLI) | payer MEDICARE, OTHER ==
--- NOTE | 2020-01-11 10:05 | MMO ---
Bilateral MAMMO Bilat Screen [facility]DI[facility]KARY. CLINICAL HISTORY: Patient is 64 years old and is seen for screening. The patient has the following family history of breast cancer: half sister. The patient has no personal history of cancer. VIEWS: The views performed were: bilateral craniocaudal with tomosynthesis and bilateral mediolateral oblique with tomosynthesis. FILMS COMPARED: The present examination has been compared to prior imaging studies performed at [facility] on 01/06/2018 and 01/07/2019. This study has been interpreted with the assistance of computer-aided detection. MAMMOGRAM FINDINGS: The breasts are heterogeneously dense, which could obscure a lesion on mammography. There are no suspicious masses, suspicious calcifications, or new areas of architectural distortion. IMPRESSION: THERE IS NO MAMMOGRAPHIC EVIDENCE OF MALIGNANCY. A ROUTINE FOLLOW-UP MAMMOGRAM IN 1 YEAR IS RECOMMENDED. THE RESULTS OF THIS EXAM WERE SENT TO THE PATIENT. ACR BI-RADS Category 1 - Negative MAMMOGRAPHY NOTE: 1. A negative mammogram report should not delay a biopsy if a dominant of clinically suspicious mass is present. 2. Approximately 10% to 15% of breast cancers are not detected by mammography. 3. Adenosis and dense breasts may obscure an underlying neoplasm. Reported by: DENNIS IZQUIERDO MD Electonically Signed: [id number]
== END 2020-01-11 09:19 | disposition home or self-care (01) ==
LOC: BICMAMMO 09:18
PROVIDERS: ATTEND Family Medicine
DX: Z12.31 Encounter for screening mammogram for malignant neoplasm of breast (principal); Z80.3 Family history of malignant neoplasm of breast
CPT/HCPCS: 77063; 77067

== ENCOUNTER 2020-09-27 03:48 | Inpatient (IN) | payer MEDICARE, OTHER ==
[2020-09-27 09:40] LABS: Troponin I 0.016 ng/mL (< 0.028)
[2020-09-27] MEDS ORDERED: Albuterol Sulfate 2.5 mg/3 ml Neb IPPB PRN (10:19)
[2020-09-27] MEDS ORDERED: predniSONE 20 MG TAB PO SCH (10:30)
[2020-09-27] MEDS ORDERED: Nitroglycerin 0.4 MG TAB (25 Tab Bottle) SL PRN (10:36)
[2020-09-27] MEDS ORDERED: hydrALAZINE 20 MG/ML VIAL SLOW IVP PRN (10:38)
--- NOTE | 2020-09-27 10:46 | PDOC.HHP ---
Hospitalist HPI chest pain, SOB History of Present Illness: Ms. Ortiz is a 65-year-old male with past medical history of hypertension, hyperlipidemia, coronary artery disease, asthma, type 2 diabetes mellitus, COPD who initially presented to [place] emergency round for chest pain and shortness of breath. Patient reports she felt as though she was having an asthma attack but had severe left-sided chest pain that radiated to her shoulder. She was unable to find her asthma medications and since the pain was so severe and she is having difficulty catching her breath she presented to the emergency room. Patient denies any dizziness or changes in vision. She reports that this feels similar to prior asthma attacks. She reports mild improvement after using her albuterol inhaler, but her chest pain has been persistent. She follows with Dr. Ness, and while she has had a prior heart catheterization has not had any stents. She reports her last stress test was approximately 2 years ago. She denies numbness weakness paresthesias. Denies abdominal pain nausea vomiting diarrhea. No changes in vision. Patient does have a known Covid exposure, but has not had any fever, cough or upper respiratory symptoms. At [place] emergency room initial vital signs 157/67, 56, 21, 97% on room air. Initial troponin 0.016. EKG showed no ST changes but did show T wave inversions in the inferolateral leads. Chest x-ray with very slight vascular congestion, no infiltrate or effusion noted. WBC 11.7, H/H 13.0/41.2 complaints to 33. BUNs/CR 13/0.94, sodium 142, potassium 3.4, glucose 96. AST/ALT 19/10, BNP 16.1. Patient received Nitropaste and aspirin at hospital prior to transfer. Allergies/Adverse Reactions: Allergy/AdvReac Type Severity Reaction Status Date / Time ELLY Inhibitors Allergy Anaphylaxis Verified 04/18/20 11:02 acetaminophen Allergy Anaphylaxis Verified 04/18/20 11:02 [From Darvocet-N 100] atorvastatin [From Lipitor] Allergy Verified 04/18/20 11:02 meperidine HCl [From Demerol] Allergy Anaphylaxis Verified 04/18/20 11:02 propoxyphene napsylate Allergy Anaphylaxis Verified 04/18/20 11:02 [From Darvocet-N 100] valsartan [From Diovan] Allergy Anaphylaxis Verified 04/18/20 11:02 Home Medications: Medication Instructions Recorded Confirmed Type Ezetimibe [Zetia] 10 mg PO DAILY #30 tab 02/19/19 04/18/20 Rx Icosapent Ethyl [Vascepa] 1 gm PO BID 04/12/19 04/18/20 History Aspirin [Aspirin EC] 81 mg PO DAILY 04/18/20 09/27/20 History Combivent Respimat Inhaler 2 puff INH DAILY PRN 04/18/20 09/27/20 History Fluticasone/Salmeterol [Advair 1 each IH DAILY PRN 04/18/20 04/18/20 History 100-50 Diskus] Isosorbide Mononitrate [Isosorbide 120 mg PO DAILY 04/18/20 04/18/20 History Mononitrate ER] Ferrous Sulfate [Iron] 325 mg PO DAILY 09/27/20 09/27/20 History Hydrochlorothiazide 25 mg PO DAILY 09/27/20 09/27/20 History Simvastatin 40 mg PO DAILY 09/27/20 09/27/20 History glipiZIDE [Glipizide] 5 mg PO DAILY 09/27/20 09/27/20 History Past History: PMHx: Hypertension, hyperlipidemia, coronary artery disease, asthma, type 2 diabetes mellitus, COPD. PSHx: Multiple orthopedic surgeries in tenter frame back tender and foot FHx: Family history significant for patient's mother who passed of a heart attack at age 46. Social: Patient lives at home with family. Hospitalist DAVIAN ACEVEDO Constitutional: denies: fever, chills, sweats, weakness, malaise, other Eyes: denies: pain, vision change, conjunctivae inflammation, eyelid inflammation, redness, other ENT: denies: ear pain, ear discharge, nose pain, nose discharge, nose congestion, mouth pain, mouth swelling, throat pain, throat swelling, other Respiratory: reports: shortness of breath, wheezing. denies: cough, dry, hemoptysis, SOB with excertion, pleuritic pain, sputum, other Cardiovascular: reports: chest pain. denies: palpitations, orthopnea, paroxysmal noc. dyspnea, edema, light headedness, other Gastrointestinal: denies: nausea, vomiting, abdominal pain, diarrhea, constipation, melena, hematochezia, other Genitourinary: denies: dysuria, frequency, incontinence, hematuria, retention, other Musculoskeletal: denies: neck pain, shoulder pain, arm pain, back pain, hand pain, leg pain, foot pain, other Skin: denies: rash, lesions, jacqueline, bruising, other Neurological: denies: weakness, numbness, incoordination, change in speech, confusion, seizures, other Hospitalist Exam General Appearance: NAD, awake alert Eye: PERRL, anicteric sclera ENT: normocephalic atraumatic, no oropharyngeal lesions, moist mucosa Neck: supple, symmetric, no JVD, no thyromegaly, no lymphadenopathy, no carotid bruit Heart: RRR, no murmur, no gallops, no rubs, normal peripheral pulses Respiratory: normal chest expansion, no tachypnea, wheezes Gastrointestinal: soft, non-tender, non-distended, normal bowel sounds, no palpable masses, no hepatomegaly, no splenomegaly, no bruit Extremities: no cyanosis, no clubbing, no edema Skin: normal turgor, no lesions, no rashes Neurological: cranial nerve grossly intact, normal sensation to touch, no weakness, no focal deficits, no new deficit Musculoskeletal: normal tone, normal strength, no muscle wasting Psychiatric: normal affect, normal behavior, A&O x 3 Hospitalist Results Lab results: Laboratory Last Values Troponin I 0.017 ng/mL (< 0.028) 09/27/20 09:20 Hospitalist H&P A/P Plan: 65-year-old female with past medical history hypertension, hyperlipidemia, coronary artery disease, asthma and type 2 diabetes presents to [place] [facility] for chest pain and shortness of breath thought to be caused by asthma exacerbation. Patient transferred to [facility] in [place] given her significant personal and family history of coronary artery disease and elevated heart score for chest pain rule out. Acute asthma vs COPD exacerbation Patient with acute asthma exacerbation on presentation with chest pain and shortness of breath and wheezing. Patient reports she has had prior hospitalizations for her asthma, but has never been intubated. Patient reports her chest tightness improved after albuterol inhaler and nebulizer treatment at hospital prior to transfer. Patient continues to endorse mild chest tightness. She is not tachypneic and is maintaining O2 saturation on room air. Will administer steroids and scheduled ICS as well as DuoNeb inhalers. Will make albuterol inhalers as needed. Plan Prednisone 40 mg Scheduled duonebs Albuterol nebs as needed Closely monitor respiratory status Chest pain Patient reports chest pain mostly left-sided radiates to the shoulder. Most likely secondary to asthma exacerbation as patient mostly describes pain as tight. Initial troponin 0 0.016, EKG with no ST changes, however did show inverted T waves in the inferior leads. Patient has a significant history of coronary artery disease and follows with Dr. Carrasco as an outpatient. She did have a heart cath in 2019 which showed significant RCA stenosis not amenable to stenting. Her family history is significant for her mother who passed of a heart attack at age 46. Given patient's elevated heart score, EKG findings and significant history will pursue echocardiogram (last one in 2019) and consult cardiology. Plan Aspirin, trend troponin Telemetry monitoring Echocardiogram Cardiology consult Treatment for asthma exacerbation as above Hypertensive emergency Patient's blood pressure on arrival 212/89. Patient with chest pain. Troponins not elevated. No headache or visual changes. No papilledema on funduscopic exam. Patient received IV hydralazine with improvement to her blood pressure to the 160s. Will continue to trend troponins, monitor blood pressure with as needed medications ensuring not to lower to quickly. Plan As needed hydralazine Continue home medications once dosages are confirmed Coronary artery disease History of coronary artery disease. Patient underwent heart cath in January 2019 which revealed significant RCA stenosis, which was not amenable to stenting. Patient follows with Dr. Carrasco. We will continue patient's home medications. Work-up for chest pain as above. Type 2 diabetes mellitus History of type 2 diabetes, diet controlled. Will check hemoglobin A1c to help stratify cardiac risk. Hypertension Continue home medications once confirmed see hypertensive emergency above. Hyperlipidemia We will continue home cholesterol medications once dosages are confirmed. DVT prophylaxisLovenox Full code PATIENT HAS MULTIPLE ALLERGIES AND ANAPHYLAXIS TO MEDICATIONS INCLUDING: ELLY INHIBITORS, ACETAMINOPHEN, ATORVASTATIN, MERPERIDINE, PROPOXYPHENE NAPSYLATE AND VALSARTAN. Case discussed with attending physician.
[2020-09-27] MEDS ORDERED: predniSONE 20 MG TAB ONE (11:48)
[2020-09-27] MEDS ORDERED: Potassium Chloride 20 MEQ TAB PO SCH (12:00)
[2020-09-27 13:24] LABS: Troponin I 0.013 ng/mL (< 0.028)
[2020-09-27] MEDS ORDERED: Albuterol 200 PUFF (6.7GM INHALER) INH PRN (14:03)
[2020-09-27] MEDS ORDERED: Albuterol 200 PUFF (6.7GM INHALER) ONE (14:04)
[2020-09-27] MEDS: Albuterol 200 PUFF (6.7GM INHALER) INH SCH ×3 (14:09→22:02)
[2020-09-27] MEDS ORDERED: Potassium Chloride 20 MEQ TAB ONE (14:25)
[2020-09-27 15:30] LABS: SARS-CoV-2 PCR by NAA Not Detected (NotDetected)
[2020-09-27 16:18] LABS: Troponin I 0.012 ng/mL (< 0.028)
--- NOTE | 2020-09-27 18:23 | CON ---
DATE OF CONSULTATION: 09/27/2020 REASON FOR CONSULTATION: Chest pain. HISTORY OF PRESENT ILLNESS: Ms. Ortiz is a very pleasant 65-year-old female, who comes to the hospital for chest pain and shortness of breath. She has a history of COPD and asthma as well as coronary artery disease. She came in for shortness of breath with chest pain, reports feeling like COPD exacerbation/asthma attack. She had left-sided tightness with her shortness of breath. She was evaluated in the ER and admitted for asthma and COPD exacerbation. She has already had 3 negative troponins at this time. Cardiology has been consulted for this. On my evaluation, Ms. Ortiz is feeling a lot better. Her breathing is better after some nebs. She is feeling overall better. She is not having any more chest tightness. PAST MEDICAL HISTORY: 1. Significant for coronary artery disease with an occluded right coronary artery that brings collaterals from the left. 2. Hypertension. 3. Hyperlipidemia. 4. Type 2 diabetes. 5. COPD. 6. Bronchial asthma. SURGICAL HISTORY: Hand and foot surgeries. FAMILY HISTORY: Mother with NC at age 46. SOCIAL HISTORY: No alcohol, tobacco, or drugs. OUTPATIENT MEDICATIONS: Include: 1. Zetia 10 mg a day. 2. Vascepa 1 g p.o. b.i.d. 3. Aspirin 81 a day. 4. Combivent inhaler p.r.n. 5. Advair Diskus. 6. Imdur 120 mg a day. 7. Ferrous sulfate 325 mg a day. 8. Hydrochlorothiazide 25 mg a day. 9. Simvastatin 40 mg a day. 10. Glipizide 5 mg a day. ALLERGIES: 1. ELLY INHIBITORS GIVE HER ANAPHYLAXIS. 2. ACETAMINOPHEN IN THE DARVOCET-N. 3. ATORVASTATIN. 4. MEPERIDINE. 5. VALSARTAN GIVES HER ANAPHYLAXIS. REVIEW OF SYSTEMS: A 12-point review of systems was done and was found to be negative except in the history of present illness. PHYSICAL EXAMINATION: VITAL SIGNS: Temperature 98.2, pulse 78, respiratory rate 18, saturating 97% on 2 L nasal cannula, blood pressure 138/62. On arrival she was at 200/100 GENERAL: Awake, alert, oriented x3. No distress. HEENT: Normocephalic, atraumatic. NECK: Supple. LUNGS: Have expiratory wheezes with good air movement and prolonged expiratory phase. CARDIOVASCULAR: S1 and S2. No S3 or S4. No murmurs. ABDOMEN: Soft. Positive bowel sounds. EXTREMITIES: No edema. SKIN: Warm and dry. LABORATORY DATA: Laboratory work was reviewed. Troponin has been negative x4. No need to check any more troponins. COVID-19 PCR serologies were negative. White count was 11, hemoglobin 13, hematocrit 41, platelet count 233. Chemistries were unremarkable except for potassium of 3.4. ASSESSMENT: 1. Chest pain. Noncardiac, likely from chronic obstructive pulmonary disease/bronchial asthma exacerbation. 2. Chronic obstructive pulmonary disease/bronchial asthma, with acute exacerbation most likely. 3. History of coronary artery disease, stable at this time. No acute coronary syndrome. 4. Hypertensive emergency, BP improved on my evaluation. PLAN: 1. We will do an echocardiogram to assess LV function and valvular structures. 2. This is most likely pulmonary exacerbation. Troponins being negative and knowing her anatomy, this is unlikely to be heart related. 3. Blood pressure control. Thank you for letting us to participate in the care of your patient. We will follow. Job ID: [id number] [facility] CENTERCinthya
[2020-09-27 21:10] VITALS: BMI 27.0
[2020-09-28] MEDS: Albuterol 200 PUFF (6.7GM INHALER) INH SCH ×6 (03:27→23:15)
[2020-09-28 04:55] LABS: #Eosinphils 0.1 thou/uL (0.0-0.7); #Lymphocytes 2.8 thou/uL (1.20-3.40); #Neutrophils 8.7 thou/uL (1.40-6.50); %Basophils 0.1 % (0.0-1.0); %Eosinophils 0.9 % (0.0-10.0); %Lymphocytes 22.4 % (21.0-51.0); %Monocytes 8.2 % (0.0-10.0); %Neutrophils 68.3 % (42.0-75.0); Hemoglobin 12.7 g/dL (12.0-16.0); Mean Corpuscular HGB CONC 32.3 g/dL (32.0-36.0); Mean Corpuscular Hemoglobin 28.8 pg (27.0-31.0); Mean Corpuscular Volume 89.1 fL (78.0-98.0); Mean Platelet Volume 8.1 fL (7.4-10.4); Platelet Count 236 thou/uL (130-400); RBC Distribution Width 13.4 % (11.5-14.5); Red Blood Cell (RBC) Count 4.43 mill/uL (4.20-5.40); White Blood Cell (WBC) Count 12.7 thou/uL (4.8-10.8)
[2020-09-28 05:23] LABS: Anion Gap 13 mmol/L (10-20); BUN (Urea Nitrogen) 21 mg/dL (9.8-20.1); Calc. Creatinine Clearance 72 mL/min (70-130); Carbon Dioxide 26 mmol/L (23-31); Cardiac Risk 3.4 (Less than 4.5); Chloride 105 mmol/L (98-107); Cholesterol 208 mg/dl (< 200 Desired); Glucose 103 mg/dL (80-115); HDL Cholesterol 61 mg/dL (>60 Neg Risk); LDL Cholesterol, Calculated 132 mg/dL; Sodium 140 mmol/L (136-145); Triglycerides 74 mg/dL (Less than 150)
[2020-09-28] MEDS: Aspirin Chewable 81 MG TAB PO SCH (08:11)
[2020-09-28] MEDS ORDERED: Non-Formulary Item 1 EACH (Fluticasone/Salmeterol [Advair Diskus 100/50] 1 EACH Blst.W.De IH PRN (08:20)
[2020-09-28] MEDS ORDERED: COMBIVENT RESPIMAT INH PRN (08:20)
[2020-09-28] MEDS ORDERED: hydrALAZINE 25 MG TAB PO PRN (08:21)
[2020-09-28] MEDS ORDERED: cloNIDine 0.1 MG TAB PO PRN (08:22)
[2020-09-28] MEDS ORDERED: Mometasone 100 MCG/Formoterol 5 MCG 120 PUFF INHALER INH PRN (08:27)
[2020-09-28] MEDS ORDERED: Simvastatin 40 MG TAB PO SCH (09:00)
[2020-09-28] MEDS ORDERED: Non-Formulary Item 1 EACH (Icosapent Ethyl 1 GM Capsule) PO SCH (09:00)
[2020-09-28] MEDS ORDERED: Enoxaparin Sodium 40 MG/0.4 ML SYRINGE SC SCH (09:00)
[2020-09-28] MEDS ORDERED: ISOSORBIDE MONONITRATE 120 MG PO SCH (09:00)
[2020-09-28] MEDS ORDERED: Non-Formulary Item 1 EACH (Hydrochlorothiazide [Hydrochlorothiazide] 12.5 MG Capsule) PO SCH (09:00)
[2020-09-28] MEDS: Hydrochlorothiazide 25 MG TAB PO SCH (10:01)
[2020-09-28] MEDS: Ezetimibe 10 MG TAB PO SCH (10:01)
[2020-09-28] MEDS: Icosapent Ethyl 1 GM CAPSULE PO SCH ×2 (10:18→20:57)
--- NOTE | 2020-09-28 16:55 | PDOC.CPN ---
- Subjective Date: 09/28/20 Time: 16:55 Interval history: She is feeling better. BP still not well controlled No more chest pain. - Review of Systems General: denies: fever/chills, weight/appetite/sleep changes, night sweats, fatigue Respiratory: denies: cough, congestion, shortness of breath, exercise intolerance Cardiovascular: denies: chest pain, palpitation, edema, paroxysmal nocturnal dyspnea, orthopnea Gastrointestinal: denies: nausea, vomiting, diarrhea, constipation, abd pain, GI bleeding Musculoskeletal: denies: pain, tenderness, stiffness, swelling, arthritis/arthralgias Neurological: denies: numbness, syncope, seizure, weakness - Objective Allergies/Adverse Reactions: Allergies Allergy/AdvReac Type Severity Reaction Status Date / Time ELLY Inhibitors Allergy Anaphylaxis Verified 04/18/20 11:02 acetaminophen Allergy Anaphylaxis Verified 04/18/20 11:02 [From Darvocet-N 100] atorvastatin [From Lipitor] Allergy Verified 04/18/20 11:02 meperidine HCl [From Demerol] Allergy Anaphylaxis Verified 04/18/20 11:02 propoxyphene napsylate Allergy Anaphylaxis Verified 04/18/20 11:02 [From Darvocet-N 100] valsartan [From Diovan] Allergy Anaphylaxis Verified 04/18/20 11:02 Visit Medications: Current Medications Albuterol Sulfate (Albuterol 200 Puff (6.7gm Inhaler)) 2 puff INH [id number] [facility] Last Admin: 09/28/20 14:30 Dose: 2 puff Documented by: Albuterol Sulfate (Albuterol 200 Puff (6.7gm Inhaler)) 2 puff INH [id number] PRN PRN Reason: Wheezing Albuterol/Ipratropium (Ipratropium/Albuterol Sulfate 3 Ml Neb) 3 ml NEB DAILYPRN PRN PRN Reason: SOB Aspirin (Aspirin Chewable 81 Mg Tab) 81 mg PO DAILY [facility] Last Admin: 09/28/20 08:11 Dose: 81 mg Documented by: Atorvastatin Calcium (Atorvastatin Calcium 20 Mg Tab) 20 mg PO HS [facility] Clonidine (Clonidine 0.1 Mg Tab) 0.1 mg PO Q4H PRN PRN Reason: SBP Greater Than 180 Ezetimibe (Ezetimibe 10 Mg Tab) 10 mg PO DAILY [facility] Last Admin: 09/28/20 10:01 Dose: 10 mg Documented by: Enoxaparin Sodium (Enoxaparin Sodium 40 Mg/0.4 Ml Syringe) 40 mg SC 0900 [facility] Last Admin: 09/28/20 08:11 Dose: 40 mg Documented by: Hydralazine HCl (Hydralazine 20 Mg/Ml Vial) 10 mg SLOW IVP Q4H PRN PRN Reason: SBP GREATER THAN 160 Last Admin: 09/28/20 00:17 Dose: 10 mg Documented by: Hydralazine HCl (Hydralazine 25 Mg Tab) 25 mg PO TID PRN PRN Reason: Sbp Greater Than 150 Hydrochlorothiazide (Hydrochlorothiazide 25 Mg Tab) 25 mg PO DAILY [facility] Last Admin: 09/28/20 10:01 Dose: 25 mg Documented by: Influenza Virus Vaccine Quadrival (Flu Vacc [id number](65yr Up)/Pf 240 Mcg/0.7 Ml Syringe) 240 mcg IM .ONCE ONE Stop: 09/28/20 21:01 Isosorbide Mononitrate (Isosorbide Mononitrate Er 60 Mg Tab) 120 mg PO DAILY [facility] Last Admin: 09/28/20 10:01 Dose: 120 mg Documented by: Miscellaneous Medication (Icosapent Ethyl 1 Gm Capsule) 1 gm PO BID [facility] Last Admin: 09/28/20 10:18 Dose: 1 gm Documented by: Mometasone Furoate/Formoterol Fumar (Mometasone 100 Mcg/Formoterol 5 Mcg 120 Puff Inhaler) 2 puff INH DAILYPRN PRN PRN Reason: SOB Nitroglycerin (Nitroglycerin 0.4 Mg Tab (25 Tab Bottle)) 0.4 mg SL Q5MIN PRN PRN Reason: Chest Pain Sodium Chloride (Flush - Normal Saline 10 Ml Syringe) 10 ml IVF PRN PRN PRN Reason: Saline Flush Vital Signs & Weight: Vital Signs Temp Pulse Resp BP Pulse Ox 09/28/20 15:10 98.5 F 56 L 20 148/58 H 96 09/28/20 12:05 98.2 F 49 L 16 179/76 H 97 09/28/20 10:03 154/67 H 09/28/20 07:59 98.3 F 75 18 196/81 H 96 Admit Weight 172 lb 9.6 oz Weight 172 lb 9.6 oz - Physical Exam General: alert & oriented x3 HEENT: mucus membranes moist Neck: supple neck Cardiac: regular rate and rhythm Lungs: clear to auscultation Neuro: grossly intact Abdomen: active bowel sounds Extremities: no edema Skin: clear Musculoskeletal: no pain - Labs Result Diagrams: 09/28/20 04:02 09/28/20 04:02 Troponin/CKMB Troponin I 0.012 ng/mL (< 0.028) 09/27/20 15:30 - Telemetry Sinus rhythms and dysrhythmias: sinus rhythm - Assessment/Plan Assessment/Plan: 1. Hypertensive emergency 2. CAD, stable no ACS. 3. COPD/Asthma PLAN: - Observe overnight. - Home tomorrow if BP stable. - Resume home meds.
[2020-09-28] MEDS ORDERED: Atorvastatin Calcium 20 MG TAB PO SCH (21:00)
[2020-09-28] MEDS ORDERED: FLU VACC QS2020-21(65YR UP)/PF 240 MCG/0.7 ML SYRINGE IM ONE (21:00)
--- NOTE | 2020-09-28 22:40 | PDOC.HOSPP ---
- Subjective Encounter Date: 09/28/20 Encounter Time: 11:00 Subjective: Patient seen and examined for chest discomfort along with shortness of breath which is improving. Denies any nausea, vomiting or diaphoresis. - Objective Vital Signs & Weight: Vital Signs (12 hours) Temp Pulse Resp BP Pulse Ox 09/28/20 19:53 98.7 F 73 18 159/69 H 94 L 09/28/20 19:00 96 09/28/20 15:10 98.5 F 56 L 20 148/58 H 96 09/28/20 12:05 98.2 F 49 L 16 179/76 H 97 Weight Admit Weight 172 lb 9.6 oz Weight 172 lb 9.6 oz I&O: 09/27/20 09/28/20 09/29/20 06:59 06:59 06:59 Intake Total 450 480 Balance 450 480 Result Diagrams: 09/28/20 04:02 09/28/20 04:02 Additional Labs: Abnormal Lab Results - Last 48 hrs 09/28/20 04:02: BUN 21 H, Cholesterol 208 H 09/28/20 04:02: WBC 12.7 H, Neutrophils # 8.7 H, Monocytes # 1.0 H EKG Reviewed by me: Yes (Sinus Bradycardia on telemetry) Hospitalist ROS - Review of Systems Respiratory: reports: SOB with excertion. denies: cough, dry, shortness of breath, hemoptysis, pleuritic pain, sputum, wheezing, other Gastrointestinal: denies: nausea, vomiting, abdominal pain, diarrhea, constipation, melena, hematochezia, other - Medication Medications: Active Medications Generic Name Dose Route Start Last Admin Trade Name Kikeq PRN Reason Stop Dose Admin Albuterol Sulfate 2 puff 09/27/20 14:30 09/28/20 18:59 Albuterol 200 Puff (6.7gm Inhaler) INH 2 puff S1IN-SD TOMMIE Administration Aspirin 81 mg 09/28/20 09:00 09/28/20 08:11 Aspirin Chewable 81 Mg Tab PO 81 mg DAILY TOMMIE Administration Ezetimibe 10 mg 09/28/20 09:00 09/28/20 10:01 Ezetimibe 10 Mg Tab PO 10 mg DAILY TOMMIE Administration Hydralazine HCl 10 mg 09/27/20 10:38 09/28/20 00:17 Hydralazine 20 Mg/Ml Vial SLOW IVP 10 mg Q4H PRN Administration SBP GREATER THAN 160 Hydrochlorothiazide 25 mg 09/28/20 09:00 09/28/20 10:01 Hydrochlorothiazide 25 Mg Tab PO 25 mg DAILY TOMMIE Administration Isosorbide Mononitrate 120 mg 09/28/20 09:00 09/28/20 10:01 Isosorbide Mononitrate Er 60 Mg Tab PO 120 mg DAILY TOMMIE Administration Miscellaneous Medication 1 gm 09/28/20 09:00 09/28/20 20:57 Icosapent Ethyl 1 Gm Capsule PO 1 gm BID TOMMIE Administration Hospitalist Exam Vitals: Vital Signs (12 hours) Temp Pulse Resp BP Pulse Ox 09/28/20 19:53 98.7 F 73 18 159/69 H 94 L 09/28/20 19:00 96 09/28/20 15:10 98.5 F 56 L 20 148/58 H 96 09/28/20 12:05 98.2 F 49 L 16 179/76 H 97 Weight Admit Weight 172 lb 9.6 oz Weight 172 lb 9.6 oz General Appearance: awake alert Neck: supple, no JVD Heart: RRR, no gallops, no rubs, normal peripheral pulses Respiratory: no wheezes, no rales, no ronchi, normal chest expansion Gastrointestinal: soft, normal bowel sounds, no guarding, no rigidity Extremities: no cyanosis, no clubbing, no edema Extremities - other findings: No calf tenderness Skin: normal turgor, no lesions Neurological: no new deficit Musculoskeletal: generalized weakness Psychiatric: normal affect, A&O x 3 Hosp A/P - Plan DVT proph w/SCDs Hypertensive crisis Chest discomfortACS ruled out Shortness of breath probably due to asthma exacerbation History of moderate persistent asthma Coronary artery disease Diabetes mellitus type II Hypertension Hyperlipidemia Plan: Continue telemetry monitoring. No significant ST-T wave changes. Echocardiogram pending at this time. Cardiology input appreciated. Continue aspirin. Continue hydrochlorothiazide along with isosorbide mononitrate. Continue Zocor for hyperlipidemia. Continue bronchodilators. Patient does not have any wheezing at this time. Continue Dulera. Home probably once blood pressure stabilizes and okay with cardiology
[2020-09-29] MEDS: Albuterol 200 PUFF (6.7GM INHALER) INH SCH ×3 (03:45→10:51)
[2020-09-29] MEDS: Hydrochlorothiazide 25 MG TAB PO SCH (07:42)
[2020-09-29] MEDS: Ezetimibe 10 MG TAB PO SCH (07:42)
[2020-09-29] MEDS: Icosapent Ethyl 1 GM CAPSULE PO SCH (07:43)
[2020-09-29] MEDS: Aspirin Chewable 81 MG TAB PO SCH (07:43)
[2020-09-29] MEDS ORDERED: Simvastatin 40 MG TAB PO SCH (09:00)
[2020-09-29 11:13] VITALS: BP 134/66; TEMP 98.5
--- NOTE | 2020-09-29 18:46 | PDOC.DS.DS ---
Provider Date of Admission: 09/29/20 09:53 Date of Discharge: 09/29/20 Admitting Provider: Olaf Wills MD Consultations: Cardiology Primary Care Physician: Heather Lora MD Course Hospital Course: Patient is 65-year-old female with asthma, hypertension, hyperlipidemia and coronary artery disease presented to the emergency room with chest discomfort along with shortness of breath on 09/27/2020. Please refer to the history and physical for further details. The patient was admitted to the hospital with a diagnosis of hypertensive crisis along with asthma exacerbation. Her initial blood pressure in the emergency room was 212/89. She received hydralazine in the emergency room. Her EKG also showed nonspecific ST-T wave changes. Patient was monitored on telemetry unit and was evaluated by cardiology. Echocardiogram showed ejection fraction 60 to 65% with 2 out 3 diastolic dysfunction, mitral regurgitation and mild tricuspid regurgitation. Her blood pressure has improved. She will continue isosorbide mononitrate 120 mg daily along with hydrochlorothiazide. Beta-blockers were avoided due to resting sinus bradycardia. And as needed hydralazine was also added to her regimen. Shortness of breath and wheezing has significantly improved. She has been cleared by cardiology for discharge. Final diagnosis: Hypertensive crisis Chest discomfortACS ruled out Shortness of breath probably due to asthma exacerbation History of moderate persistent asthma Coronary artery disease Diabetes mellitus type II Hypertension Hyperlipidemia Resuscitation Status: 09/27/20 10:25 Resuscitation Status Routine Co-Sign Provider: Resuscitation Status: FULL: Full Resuscitation Lab Results: 09/28/20 04:02 09/28/20 04:02 Abnormal Lab Results - Last 48 hrs 09/28/20 04:02: BUN 21 H, Cholesterol 208 H 09/28/20 04:02: WBC 12.7 H, Neutrophils # 8.7 H, Monocytes # 1.0 H Vitals: Vital Signs (12 hours) Temp Pulse Resp BP Pulse Ox 09/29/20 11:07 98.5 F 64 16 134/66 96 09/29/20 07:36 97.6 F 50 L 17 157/75 H 97 Weight Admit Weight 172 lb 9.6 oz Weight 171 lb 1.6 oz Physical Exam: The patient was seen and examined on the day of discharge. General Appearance: NAD Neck: supple, no JVD Respiratory: no wheezes, no ronchi Cardiovascular: RRR, no gallops Gastrointestinal: soft, non-distended Extremities: no cyanosis Plan Prescriptions: hydrALAZINE [Apresoline] 25 mg PO TID PRN #60 tab PRN Reason: Sbp Greater Than 170 Home Medications: Medication Instructions Recorded Confirmed Type Ezetimibe [Zetia] 10 mg PO DAILY #30 tab 02/19/19 09/27/20 Rx Icosapent Ethyl [Vascepa] 1 gm PO BID 04/12/19 09/27/20 History Aspirin [Aspirin EC] 81 mg PO DAILY 04/18/20 09/27/20 History Combivent Respimat Inhaler 2 puff INH DAILY PRN 04/18/20 09/27/20 History Fluticasone/Salmeterol [Advair 1 each IH DAILY PRN 04/18/20 09/27/20 History Diskus 100/50] Isosorbide Mononitrate [Isosorbide 120 mg PO DAILY 04/18/20 09/27/20 History Mononitrate ER] Ferrous Sulfate [Iron] 325 mg PO DAILY 09/27/20 09/27/20 History Hydrochlorothiazide 25 mg PO DAILY 09/27/20 09/27/20 History Simvastatin 40 mg PO DAILY 09/27/20 09/27/20 History glipiZIDE [Glipizide] 5 mg PO DAILY 09/27/20 09/27/20 History hydrALAZINE [Apresoline] 25 mg PO TID PRN #60 tab 09/29/20 Rx Allergies: ELLY Inhibitors Allergy (Verified 04/18/20 11:02) Anaphylaxis acetaminophen [From Darvocet-N 100] Allergy (Verified 04/18/20 11:02) Anaphylaxis atorvastatin [From Lipitor] Allergy (Verified 04/18/20 11:02) per patient meperidine HCl [From Demerol] Allergy (Verified 04/18/20 11:02) Anaphylaxis propoxyphene napsylate [From Darvocet-N 100] Allergy (Verified 04/18/20 11:02) Anaphylaxis valsartan [From Diovan] Allergy (Verified 04/18/20 11:02) Anaphylaxis Referrals: Crow Carrasco MD [Active] - 14 Days (please follow up with your combination worker in 2 weeks. call the office to schedule an appointment.) Heather Lora MD [Primary Care Provider] - 7 Days (Please follow up with your PCP in a week. Call the office to schedule an appointment.) Disposition: HOME Quality CORE MEASURES:: N/A
[2020-09-29] MEDS ORDERED: Enoxaparin Sodium 40 MG/0.4 ML SYRINGE SC SCH (21:00)
--- NOTE | 2020-09-30 21:19 | EKG ---
Test Reason : CHEST PAIN Blood Pressure : / mmHG Vent. Rate : 054 BPM Atrial Rate : 054 BPM P-R Int : 166 ms QRS Dur : 086 ms QT Int : 402 ms P-R-T Axes : 066 001 -46 degrees QTc Int : 381 ms Sinus bradycardia with sinus arrhythmia T wave abnormality, consider inferolateral ischemia Abnormal ECG Confirmed by ALFONSO COSTELLO ([id number]), photographic editor BARRON REHMAN ([id number]) on 09/30/2020 9:18:54 PM Referred By: Confirmed By:ALFONSO COSTELLO
== END 2020-09-29 11:45 | disposition home or self-care (01) | DRG 202 ==
LOC: ERS 03:48 → ERHOLD 09:37 → 2NO 17:10 → OBSVTOIN 09-29 09:53
PROVIDERS: ADMIT Student in an Organized Health Care Education/Training Program; ATTEND Internal Medicine
DX: J45.41 Moderate persistent asthma with (acute) exacerbation (principal); I16.1 Hypertensive emergency; Z20.822 Contact with and (suspected) exposure to COVID-19; I10 Essential (primary) hypertension; E78.5 Hyperlipidemia, unspecified; I25.10 Atherosclerotic heart disease of native coronary artery without angina pectoris; J44.9 Chronic obstructive pulmonary disease, unspecified; I08.1 Rheumatic disorders of both mitral and tricuspid valves; E11.9 Type 2 diabetes mellitus without complications; Z88.5 Allergy status to narcotic agent; Z88.8 Allergy status to other drugs, medicaments and biological substances; Z79.84 Long term (current) use of oral hypoglycemic drugs; Z79.82 Long term (current) use of aspirin; Z79.51 Long term (current) use of inhaled steroids; Z79.899 Other long term (current) drug therapy
CPT/HCPCS: 36415; 80048; 80061; 85025; 87635; 93005; 93306; 94760; 96372; 96374; 96375; G0378; J0360; J1650; J7512; U0003; U0005

== ENCOUNTER 2021-01-19 08:25 | Outpatient (CLI) | payer MEDICARE, OTHER | END 2021-01-19 08:26 | disposition home or self-care (01) | LOC: BICMAMMO 08:25 | PROVIDERS: ATTEND Family Medicine | DX: Z12.31 Encounter for screening mammogram for malignant neoplasm of breast (principal); Z80.3 Family history of malignant neoplasm of breast; N63.20 Unspecified lump in the left breast, unspecified quadrant | CPT/HCPCS: 77063; 77067 ==

== ENCOUNTER 2021-01-24 08:18 | Outpatient (CLI) | payer MEDICARE, OTHER | END 2021-01-24 08:19 | disposition home or self-care (01) | LOC: BICMAMMO 08:18 | PROVIDERS: ATTEND Family Medicine | DX: N63.20 Unspecified lump in the left breast, unspecified quadrant (principal) | CPT/HCPCS: 76642; 77065; G0279 ==

== ENCOUNTER → 2021-02-05 | Day surgery (SDC) | payer MEDICARE, OTHER | LOC: BICULT 08:50 | PROVIDERS: ATTEND Family Medicine | PROC: 0H9U3ZX Drainage of Left Breast, Percutaneous Approach, Diagnostic (ICD-10-PCS; principal; 2021-02-05) | PROC: 07B63ZX Excision of Left Axillary Lymphatic, Percutaneous Approach, Diagnostic (ICD-10-PCS; 2021-02-05) | DX: C50.812 Malignant neoplasm of overlapping sites of left female breast (principal); Z17.0 Estrogen receptor positive status [ER+]; Z88.5 Allergy status to narcotic agent; Z88.6 Allergy status to analgesic agent; Z88.8 Allergy status to other drugs, medicaments and biological substances | CPT/HCPCS: 19083; 38505; 88305; 88341; 88342 ==

== ENCOUNTER 2021-04-27 10:10 | Inpatient (IN) | payer MEDICARE, OTHER ==
[~2021-04-27 10:10] MED LIST: Iopamidol-370 76% 500 ML 1 ML ONE
[2021-04-27] MEDS ORDERED: Ondansetron PF 4 MG/2 ML Vial ONE (11:36)
[2021-04-27] MEDS ORDERED: Magnesium 2 GM/50 ML BAG (IN WATER) ONE (11:36)
[2021-04-27] MEDS ORDERED: Nitroglycerin 0.4 MG TAB 1 EACH ONE (11:36)
[2021-04-27 11:50] LABS: Mean Corpuscular HGB CONC 32.4 g/dL (32.0-36.0); Mean Corpuscular Hemoglobin 28.2 pg (27.0-31.0); Mean Corpuscular Volume 87.1 fL (78.0-98.0); Mean Platelet Volume 8.2 fL (7.4-10.4); Platelet Count 203 thou/uL (130-400); RBC Distribution Width 14.2 % (11.5-14.5); Red Blood Cell (RBC) Count 3.56 mill/uL (4.20-5.40)
[2021-04-27 12:08] LABS: ALT (SGPT) 16 U/L (8-55); AST (SGOT) 28 U/L (5-34); Albumin 3.5 g/dL (3.4-4.8); Alkaline Phosphatase 101 U/L (40-110); Anion Gap 14 mmol/L (10-20); BUN (Urea Nitrogen) 10 mg/dL (9.8-20.1); Bilirubin, Total 0.5 mg/dL (0.2-1.2); Calc. Creatinine Clearance 0 mL/min (70-130); Calcium 9.4 mg/dL (7.8-10.44); Carbon Dioxide 27 mmol/L (23-31); Chloride 101 mmol/L (98-107); Globulin 2.9 g/dL (2.4-3.5); Glucose 110 mg/dL (80-115); Lipase 8 U/L (8-78); Potassium 3.6 mmol/L (3.5-5.1); Protein, Total 6.4 g/dL (5.8-8.1); Sodium 138 mmol/L (136-145)
[2021-04-27 12:22] LABS: White Blood Cell (WBC) Count 33.5 thou/uL (4.8-10.8)
[2021-04-27 12:23] LABS: Band 12 % (5-11); Lymphocytes 8 % (21-51); MDiff Complete? YES; Metamyelocyte 3 % (0-0); Monocytes 9 % (0-10); Neutrophil 68 % (42-75); Nucleated RBC 8 % (0); Platelet Morphology Comment Appears Adequate; Polychromasia MODERATE = 3-4 cells (100X) (0-2/hpf)
[2021-04-27 12:25] LABS: CKMB 2.5 ng/mL (0-6.6)
[2021-04-27 13:37] LABS: Magnesium 2.5 mg/dL (1.6-2.6)
[2021-04-27] MEDS ORDERED: Cefepime 2 GM VIAL ONE ×2 (13:46→13:47)
[2021-04-27] MEDS ORDERED: cloNIDine 0.1 MG TAB ONE (13:46)
[2021-04-27] MEDS ORDERED: VANCOMYCIN 1.25 GM/250 ML BAG 1.25 GM in Premix Bag 1 BAG IVPB SCH (14:30)
[2021-04-27 15:11] LABS: Bilirubin Negative (Negative); Blood, Urine 3+ (Negative); Clarity Clear (Clear); Glucose, Urine (Dipstick) Normal (Negative); Ketone, Urine Negative (Negative); Leukocyte 250 Leu/uL (Negative); Nitrite Negative (Negative); Protein, Urine (Dipstick) 50 mg/dL (Neg-Trace); Squamous Epithelial 0-3 HPF (0-3); Urobilinogen Normal mg/dL (Less than 2); pH, Urine 5.5 (5.0-9.0)
[2021-04-27 15:20] LABS: Bacteria/HPF 2+ HPF (None Seen); Specific Gravity, Urine Greater than 1.060 (1.002-1.036)
[2021-04-27 15:21] LABS: Yeast-Budding Rare HPF (None Seen)
[2021-04-27 15:28] LABS: Troponin I 0.189 ng/mL (< 0.028)
[2021-04-27] MEDS ORDERED: Enoxaparin Sodium 80 MG/0.8 ML SYRINGE ONE (15:36)
[2021-04-27 15:52] LABS: SARS-CoV-2 NAA Rapid Test Not Detected (NotDetected)
[2021-04-27] MEDS ORDERED: Ondansetron ODT 4 MG TAB SL PRN (19:00)
[2021-04-27] MEDS ORDERED: Ondansetron PF 4 MG/2 ML Vial IVP PRN (19:00)
[2021-04-27] MEDS ORDERED: hydrALAZINE 20 MG/ML VIAL SLOW IVP PRN (19:20)
[2021-04-27] MEDS ORDERED: Nitroglycerin 0.4 MG TAB (25 Tab Bottle) SL PRN (19:25)
[2021-04-27 19:45] LABS: Troponin I 0.184 ng/mL (< 0.028)
[2021-04-27 19:58] VITALS: BMI 28.8
[2021-04-27] MEDS ORDERED: Dextrose 5% in Water 1,000 ML IV PRN (20:04)
[2021-04-27] MEDS ORDERED: HumaLOG 300 UNITS/3 ML VIAL SC PRN ×2 (20:04)
[2021-04-27] MEDS ORDERED: Dextrose 50% Abboject 50 ML SYRINGE SLOW IVP PRN (20:04)
[2021-04-27 21:27] LABS: Glucose 106 mg/dL (80-115)
[2021-04-28] MEDS ORDERED: Cefepime 1 GM in Sodium Chloride 0.9% 100 ML IVPB SCH (01:00)
[2021-04-28] MEDS ORDERED: Vancomycin 1 GM in Premix Bag 1 BAG IVPB SCH (03:00)
[2021-04-28 04:19] LABS: Hemoglobin A1c 6.3 % (4.0-6.0)
[2021-04-28 04:40] LABS: ALT (SGPT) 15 U/L (8-55); AST (SGOT) 23 U/L (5-34); Albumin 3.2 g/dL (3.4-4.8); Alkaline Phosphatase 88 U/L (40-110); Anion Gap 10 mmol/L (10-20); BUN (Urea Nitrogen) 13 mg/dL (9.8-20.1); Bilirubin, Total 0.4 mg/dL (0.2-1.2); Calc. Creatinine Clearance 70 mL/min (70-130); Calcium 8.9 mg/dL (7.8-10.44); Carbon Dioxide 28 mmol/L (23-31); Cardiac Risk 4.7 (Less than 4.5); Chloride 104 mmol/L (98-107); Cholesterol 118 mg/dl (< 200 Desired); Globulin 2.7 g/dL (2.4-3.5); Glucose 110 mg/dL (80-115); HDL Cholesterol 25 mg/dL (>60 Neg Risk); LDL Cholesterol, Calculated 72 mg/dL; Potassium 3.7 mmol/L (3.5-5.1); Protein, Total 5.9 g/dL (5.8-8.1); Sodium 138 mmol/L (136-145); Triglycerides 106 mg/dL (Less than 150)
[2021-04-28 04:55] LABS: Band 25 % (5-11); Hemoglobin 9.3 g/dL (12.0-16.0); Lymphocytes 11 % (21-51); MDiff Complete? YES; Mean Corpuscular HGB CONC 32.1 g/dL (32.0-36.0); Mean Corpuscular Hemoglobin 28.1 pg (27.0-31.0); Mean Corpuscular Volume 87.7 fL (78.0-98.0); Mean Platelet Volume 8.1 fL (7.4-10.4); Metamyelocyte 3 % (0-0); Monocytes 13 % (0-10); Myelocyte 3 % (0-0); Neutrophil 45 % (42-75); Nucleated RBC 7 % (0); Platelet Count 217 thou/uL (130-400); Platelet Morphology Comment Appears Adequate; RBC Distribution Width 14.4 % (11.5-14.5); Red Blood Cell (RBC) Count 3.31 mill/uL (4.20-5.40); White Blood Cell (WBC) Count 27.2 thou/uL (4.8-10.8)
[2021-04-28] MEDS ORDERED: traMADol HCl 50 MG TAB PO PRN (07:45)
[2021-04-28] MEDS ORDERED: hydrALAZINE 25 MG TAB PO PRN (07:45)
[2021-04-28] MEDS ORDERED: Ferrous Sulfate 325 MG TAB PO SCH (08:00)
[2021-04-28] MEDS ORDERED: Mometasone 100 MCG/Formoterol 5 MCG 120 PUFF INHALER INH PRN (08:53)
[2021-04-28] MEDS ORDERED: Ezetimibe 10 MG TAB PO SCH (09:00)
[2021-04-28] MEDS ORDERED: Icosapent Ethyl 1 GM CAPSULE PO SCH (09:00)
[2021-04-28] MEDS ORDERED: Enoxaparin Sodium 80 MG/0.8 ML SYRINGE SC SCH (09:00)
[2021-04-28] MEDS ORDERED: Aspirin 325 mg Enteric Coated Tablet PO SCH (11:15)
[2021-04-28] MEDS ORDERED: Morphine 2 MG/ML VIAL SLOW IVP PRN (11:30)
[2021-04-28] MEDS ORDERED: Nitroglycerin 2% Ointment 1 INCH/1 GM Packet TOP SCH (12:00)
[2021-04-28 12:51] LABS: Troponin I 0.111 ng/mL (< 0.028)
[2021-04-28] MEDS ORDERED: cefTRIAXone\\ROCEPHIN 1 GM in Sodium Chloride 0.9% 100 ML IVPB SCH (13:00)
[2021-04-28] MEDS: Nitroglycerin 0.4 MG TAB (25 Tab Bottle) SL PRN ×3 (20:59→21:12)
[2021-04-28] MEDS ORDERED: Simvastatin 10 MG TAB PO SCH (21:00)
[2021-04-28 21:34] LABS: Troponin I 0.111 ng/mL (< 0.028)
[2021-04-29 07:44] LABS: Hemoglobin 8.4 g/dL (12.0-16.0); Mean Corpuscular HGB CONC 32.4 g/dL (32.0-36.0); Mean Corpuscular Hemoglobin 28.3 pg (27.0-31.0); Mean Corpuscular Volume 87.5 fL (78.0-98.0); Mean Platelet Volume 7.5 fL (7.4-10.4); Platelet Count 168 thou/uL (130-400); RBC Distribution Width 14.5 % (11.5-14.5); Red Blood Cell (RBC) Count 2.96 mill/uL (4.20-5.40); White Blood Cell (WBC) Count 22.8 thou/uL (4.8-10.8)
[2021-04-29 07:53] LABS: Anion Gap 8 mmol/L (10-20); BUN (Urea Nitrogen) 10 mg/dL (9.8-20.1); Calc. Creatinine Clearance 84 mL/min (70-130); Calcium 8.9 mg/dL (7.8-10.44); Carbon Dioxide 32 mmol/L (23-31); Chloride 102 mmol/L (98-107); Glucose 96 mg/dL (80-115); Potassium 3.7 mmol/L (3.5-5.1); Sodium 138 mmol/L (136-145)
[2021-04-29 08:31] LABS: Band 2 % (5-11); Lymphocytes 12 % (21-51); MDiff Complete? YES; Monocytes 7 % (0-10); Neutrophil 79 % (42-75); Nucleated RBC 3 % (0); Platelet Morphology Comment Appears Adequate; Polychromasia SLIGHT = 2-3 cells (100X) (0-2/hpf)
[2021-04-29] MEDS ORDERED: Aspirin 81 mg Enteric Coated Tablet PO SCH ×2 (09:00)
[2021-04-29] MEDS: Aspirin 81 mg Enteric Coated Tablet PO SCH (12:13)
[2021-04-29 14:32] LABS: Protein, Urine 18 mg/dL (1-14)
[2021-04-29 15:09] LABS: Protein - 24 Hr 126 mg/24 hr (Less than 300); Urine Total Volume 700 mL (250-2400)
[2021-04-29] MEDS: Simvastatin 10 MG TAB PO SCH (21:09)
[2021-04-30 04:56] LABS: Anion Gap 9 mmol/L (10-20); BUN (Urea Nitrogen) 7 mg/dL (9.8-20.1); Calc. Creatinine Clearance 92 mL/min (70-130); Calcium 8.9 mg/dL (7.8-10.44); Carbon Dioxide 30 mmol/L (23-31); Chloride 103 mmol/L (98-107); Glucose 103 mg/dL (80-115); Potassium 3.8 mmol/L (3.5-5.1); Sodium 138 mmol/L (136-145)
[2021-04-30 05:35] LABS: Band 13 % (5-11); Eosinophils 1 % (0-10); Hemoglobin 8.6 g/dL (12.0-16.0); Hypochromia SLIGHT = 6-15 cells (100X) (0-5/hpf); Lymphocytes 7 % (21-51); MDiff Complete? YES; Mean Corpuscular HGB CONC 31.8 g/dL (32.0-36.0); Mean Corpuscular Hemoglobin 27.9 pg (27.0-31.0); Mean Corpuscular Volume 87.8 fL (78.0-98.0); Mean Platelet Volume 7.8 fL (7.4-10.4); Metamyelocyte 1 % (0-0); Monocytes 5 % (0-10); Neutrophil 73 % (42-75); Platelet Count 178 thou/uL (130-400); Platelet Morphology Comment Appears Adequate; Polychromasia SLIGHT = 2-3 cells (100X) (0-2/hpf); Red Blood Cell (RBC) Count 3.07 mill/uL (4.20-5.40); White Blood Cell (WBC) Count 22.7 thou/uL (4.8-10.8)
[2021-04-30] MEDS: Aspirin 81 mg Enteric Coated Tablet PO SCH (09:16)
[2021-04-30] MEDS ORDERED: HumaLOG 300 UNITS/3 ML VIAL SC PRN (13:45)
[2021-04-30] MEDS ORDERED: Dextrose 5% in Water 1,000 ML IV PRN (13:45)
[2021-04-30] MEDS ORDERED: Dextrose 50% Abboject 50 ML SYRINGE SLOW IVP PRN (13:45)
[2021-04-30] MEDS: hydrALAZINE 25 MG TAB PO SCH ×2 (14:52→21:40)
[2021-04-30] MEDS: traMADol HCl 50 MG TAB PO PRN ×2 (14:54→21:42)
[2021-04-30] MEDS ORDERED: Communication Order-Pharmacy FS SCH (16:00)
[2021-04-30] MEDS: Sodium Chloride 0.9% 1,000 ML IV SCH (17:01)
[2021-04-30] MEDS: Simvastatin 10 MG TAB PO SCH (21:40)
[2021-05-01] MEDS: traMADol HCl 50 MG TAB PO PRN ×2 (04:32→19:33)
[2021-05-01 04:53] LABS: Band 7 % (5-11); Eosinophils 1 % (0-10); Hemoglobin 8.6 g/dL (12.0-16.0); Hypochromia SLIGHT = 6-15 cells (100X) (0-5/hpf); Lymphocytes 21 % (21-51); MDiff Complete? YES; Mean Corpuscular HGB CONC 32.2 g/dL (32.0-36.0); Mean Corpuscular Hemoglobin 28.4 pg (27.0-31.0); Mean Corpuscular Volume 88.2 fL (78.0-98.0); Mean Platelet Volume 7.7 fL (7.4-10.4); Monocytes 5 % (0-10); Neutrophil 66 % (42-75); Nucleated RBC 4 % (0); Platelet Count 175 thou/uL (130-400); Platelet Morphology Comment Appears Adequate; RBC Distribution Width 14.8 % (11.5-14.5); Red Blood Cell (RBC) Count 3.01 mill/uL (4.20-5.40); White Blood Cell (WBC) Count 22.7 thou/uL (4.8-10.8)
[2021-05-01 04:59] LABS: Anion Gap 12 mmol/L (10-20); BUN (Urea Nitrogen) 7 mg/dL (9.8-20.1); Calc. Creatinine Clearance 88 mL/min (70-130); Carbon Dioxide 29 mmol/L (23-31); Chloride 102 mmol/L (98-107); Glucose 95 mg/dL (80-115); Potassium 3.9 mmol/L (3.5-5.1); Sodium 139 mmol/L (136-145)
[2021-05-01] MEDS: Sodium Chloride 0.9% 1,000 ML IV SCH (06:45)
[2021-05-01] MEDS ORDERED: Midazolam HCl 2 mg/2 ml Vial ONE (06:50)
[2021-05-01] MEDS ORDERED: Fentanyl 100 MCG/2 ML VIAL ONE (06:51)
[2021-05-01] MEDS ORDERED: Heparin 0 ML ONE (06:51)
[2021-05-01] MEDS ORDERED: Heparin 10,000 UNITS/ 10 ML VIAL ONE (06:51)
[2021-05-01] MEDS ORDERED: Lidocaine 1% (PF) 30 ML VIAL ONE (06:51)
[2021-05-01] MEDS: hydrALAZINE 25 MG TAB PO SCH ×3 (08:58→21:24)
[2021-05-01] MEDS: Aspirin 81 mg Enteric Coated Tablet PO SCH (08:58)
[2021-05-01] MEDS: cefTRIAXone\\ROCEPHIN 2 GM in Sodium Chloride 0.9% 100 ML IVPB SCH (08:59)
[2021-05-01] MEDS ORDERED: glipiZIDE 5 MG TAB PO SCH (09:00)
[2021-05-01 12:17] LABS: ANA Symphony (Qualitative) Negative (Negative); ANA Symphony (Quantitative) 0.1 Ratio (< 0.7 Negative); dsDNA IgG Antibody Less than 0.5 IU/mL (<10 Negative)
[2021-05-01] MEDS ORDERED: Iopamidol 370 76% 100 ML VIAL ONE (13:17)
[2021-05-01] MEDS: Simvastatin 10 MG TAB PO SCH (21:25)
[2021-05-01] MEDS ORDERED: traMADol HCl 50 MG TAB PO PRN (21:36)
[2021-05-01] MEDS ORDERED: traMADol HCl 50 MG TAB PO SCH (21:45)
[2021-05-02] MEDS: glipiZIDE 5 MG TAB PO SCH (08:51)
[2021-05-02] MEDS: Aspirin 81 mg Enteric Coated Tablet PO SCH (08:51)
[2021-05-02] MEDS: hydrALAZINE 25 MG TAB PO SCH ×3 (08:51→20:39)
[2021-05-02] MEDS: cefTRIAXone\\ROCEPHIN 2 GM in Sodium Chloride 0.9% 100 ML IVPB SCH (08:53)
[2021-05-02] MEDS ORDERED: predniSONE 20 MG TAB PO SCH (09:30)
[2021-05-02 09:45] LABS: Hemoglobin 8.7 g/dL (12.0-16.0); Mean Corpuscular HGB CONC 31.2 g/dL (32.0-36.0); Mean Corpuscular Hemoglobin 27.5 pg (27.0-31.0); Mean Corpuscular Volume 88.1 fL (78.0-98.0); Mean Platelet Volume 7.6 fL (7.4-10.4); Platelet Count 222 thou/uL (130-400); RBC Distribution Width 15.1 % (11.5-14.5); Red Blood Cell (RBC) Count 3.17 mill/uL (4.20-5.40); White Blood Cell (WBC) Count 16.5 thou/uL (4.8-10.8)
[2021-05-02 10:05] LABS: Anion Gap 12 mmol/L (10-20); BUN (Urea Nitrogen) 9 mg/dL (9.8-20.1); Calc. Creatinine Clearance 86 mL/min (70-130); Calcium 9.4 mg/dL (7.8-10.44); Carbon Dioxide 30 mmol/L (23-31); Chloride 101 mmol/L (98-107); Glucose 94 mg/dL (80-115); Potassium 3.8 mmol/L (3.5-5.1); Sodium 139 mmol/L (136-145)
[2021-05-02 10:24] LABS: Band 11 % (5-11); Eosinophils 1 % (0-10); Lymphocytes 13 % (21-51); MDiff Complete? YES; Monocytes 6 % (0-10); Neutrophil 68 % (42-75); Platelet Morphology Comment Appears Adequate; Polychromasia SLIGHT = 2-3 cells (100X) (0-2/hpf); Reactive Lymphocytes 1 % (0-10)
[2021-05-02] MEDS: Simvastatin 10 MG TAB PO SCH (20:39)
[2021-05-03 05:35] LABS: Band 3 % (5-11); Hemoglobin 8.9 g/dL (12.0-16.0); Hypochromia SLIGHT = 6-15 cells (100X) (0-5/hpf); Lymphocytes 16 % (21-51); MDiff Complete? YES; Mean Corpuscular HGB CONC 30.7 g/dL (32.0-36.0); Mean Corpuscular Hemoglobin 27.2 pg (27.0-31.0); Mean Corpuscular Volume 88.6 fL (78.0-98.0); Mean Platelet Volume 7.6 fL (7.4-10.4); Monocytes 4 % (0-10); Neutrophil 77 % (42-75); Platelet Count 261 thou/uL (130-400); Platelet Morphology Comment Appears Adequate; RBC Distribution Width 15.1 % (11.5-14.5); Red Blood Cell (RBC) Count 3.26 mill/uL (4.20-5.40)
[2021-05-03 05:40] LABS: Anion Gap 10 mmol/L (10-20); BUN (Urea Nitrogen) 12 mg/dL (9.8-20.1); Calc. Creatinine Clearance 83 mL/min (70-130); Calcium 9.7 mg/dL (7.8-10.44); Carbon Dioxide 31 mmol/L (23-31); Chloride 102 mmol/L (98-107); Glucose 124 mg/dL (80-115); Potassium 4.6 mmol/L (3.5-5.1); Sodium 138 mmol/L (136-145)
[2021-05-03] MEDS: predniSONE 20 MG TAB PO SCH (08:55)
[2021-05-03] MEDS: glipiZIDE 5 MG TAB PO SCH (08:55)
[2021-05-03] MEDS: hydrALAZINE 25 MG TAB PO SCH ×3 (08:55→21:09)
[2021-05-03] MEDS: Aspirin 81 mg Enteric Coated Tablet PO SCH (08:56)
[2021-05-03] MEDS: cefTRIAXone\\ROCEPHIN 2 GM in Sodium Chloride 0.9% 100 ML IVPB SCH (08:59)
[2021-05-03] MEDS ORDERED: Amlodipine 10 MG TAB PO SCH (10:00)
[2021-05-03] MEDS: Nitroglycerin 0.4 MG TAB (25 Tab Bottle) SL PRN ×3 (11:10→11:23)
[2021-05-03] MEDS ORDERED: Furosemide 40 MG/4 ML VIAL SLOW IVP SCH (13:15)
[2021-05-03] MEDS: Simvastatin 10 MG TAB PO SCH (21:09)
[2021-05-04 05:15] LABS: #Basophils 0.1 thou/uL (0.0-0.2); #Eosinphils 0.1 thou/uL (0.0-0.7); #Lymphocytes 2.2 thou/uL (1.20-3.40); #Monocytes 1.5 thou/uL (0.11-0.59); #Neutrophils 16.7 thou/uL (1.40-6.50); %Basophils 0.5 % (0.0-1.0); %Eosinophils 0.3 % (0.0-10.0); %Lymphocytes 10.6 % (21.0-51.0); %Monocytes 7.4 % (0.0-10.0); %Neutrophils 81.2 % (42.0-75.0); Hemoglobin 9.2 g/dL (12.0-16.0); Mean Corpuscular HGB CONC 32.6 g/dL (32.0-36.0); Mean Corpuscular Hemoglobin 28.9 pg (27.0-31.0); Mean Corpuscular Volume 88.8 fL (78.0-98.0); Mean Platelet Volume 7.2 fL (7.4-10.4); Platelet Count 389 thou/uL (130-400); RBC Distribution Width 15.3 % (11.5-14.5); Red Blood Cell (RBC) Count 3.19 mill/uL (4.20-5.40); White Blood Cell (WBC) Count 20.6 thou/uL (4.8-10.8)
[2021-05-04 05:28] LABS: Anion Gap 12 mmol/L (10-20); BUN (Urea Nitrogen) 18 mg/dL (9.8-20.1); Calc. Creatinine Clearance 76 mL/min (70-130); Calcium 9.9 mg/dL (7.8-10.44); Carbon Dioxide 32 mmol/L (23-31); Chloride 101 mmol/L (98-107); Glucose 119 mg/dL (80-115); Potassium 3.4 mmol/L (3.5-5.1); Sodium 142 mmol/L (136-145)
[2021-05-04] MEDS: hydrALAZINE 25 MG TAB PO SCH ×3 (09:08→20:59)
[2021-05-04] MEDS: glipiZIDE 5 MG TAB PO SCH (09:08)
[2021-05-04] MEDS: predniSONE 20 MG TAB PO SCH (09:08)
[2021-05-04] MEDS: Amlodipine 10 MG TAB PO SCH (09:08)
[2021-05-04] MEDS: Aspirin 81 mg Enteric Coated Tablet PO SCH (09:09)
[2021-05-04] MEDS: cefTRIAXone\\ROCEPHIN 2 GM in Sodium Chloride 0.9% 100 ML IVPB SCH (09:39)
[2021-05-04] MEDS ORDERED: Potassium Chloride 20 MEQ TAB PO SCH (14:15)
[2021-05-04] MEDS: Simvastatin 10 MG TAB PO SCH (20:59)
[2021-05-05 04:33] LABS: #Eosinphils 0.1 thou/uL (0.0-0.7); #Lymphocytes 1.8 thou/uL (1.20-3.40); #Monocytes 1.1 thou/uL (0.11-0.59); #Neutrophils 15.4 thou/uL (1.40-6.50); %Basophils 0.1 % (0.0-1.0); %Eosinophils 0.3 % (0.0-10.0); %Neutrophils 83.6 % (42.0-75.0); Hemoglobin 8.6 g/dL (12.0-16.0); Mean Corpuscular HGB CONC 32.3 g/dL (32.0-36.0); Mean Corpuscular Hemoglobin 28.8 pg (27.0-31.0); Mean Corpuscular Volume 89.1 fL (78.0-98.0); Mean Platelet Volume 7.2 fL (7.4-10.4); Platelet Count 471 thou/uL (130-400); RBC Distribution Width 15.3 % (11.5-14.5); Red Blood Cell (RBC) Count 2.99 mill/uL (4.20-5.40); White Blood Cell (WBC) Count 18.4 thou/uL (4.8-10.8)
[2021-05-05 04:49] LABS: Anion Gap 12 mmol/L (10-20); BUN (Urea Nitrogen) 18 mg/dL (9.8-20.1); Calc. Creatinine Clearance 83 mL/min (70-130); Calcium 9.4 mg/dL (7.8-10.44); Carbon Dioxide 29 mmol/L (23-31); Chloride 103 mmol/L (98-107); Glucose 110 mg/dL (80-115); Potassium 4.4 mmol/L (3.5-5.1); Sodium 140 mmol/L (136-145)
[2021-05-05] MEDS: Aspirin 81 mg Enteric Coated Tablet PO SCH (09:27)
[2021-05-05] MEDS: predniSONE 20 MG TAB PO SCH (09:27)
[2021-05-05] MEDS: glipiZIDE 5 MG TAB PO SCH (09:27)
[2021-05-05] MEDS: Amlodipine 10 MG TAB PO SCH (09:27)
[2021-05-05] MEDS: hydrALAZINE 25 MG TAB PO SCH ×3 (09:27→20:27)
[2021-05-05] MEDS: cefTRIAXone\\ROCEPHIN 2 GM in Sodium Chloride 0.9% 100 ML IVPB SCH (09:28)
[2021-05-05 19:16] LABS: SARS-CoV-2 PCR by NAA Not Detected (NotDetected)
[2021-05-05] MEDS: Simvastatin 10 MG TAB PO SCH (20:27)
[2021-05-06 05:30] LABS: #Basophils 0.1 thou/uL (0.0-0.2); #Lymphocytes 2.7 thou/uL (1.20-3.40); #Monocytes 1.5 thou/uL (0.11-0.59); %Basophils 0.5 % (0.0-1.0); %Eosinophils 0.2 % (0.0-10.0); %Lymphocytes 15.5 % (21.0-51.0); %Monocytes 8.7 % (0.0-10.0); %Neutrophils 75.1 % (42.0-75.0); Hemoglobin 8.7 g/dL (12.0-16.0); Mean Corpuscular HGB CONC 31.6 g/dL (32.0-36.0); Mean Corpuscular Hemoglobin 27.8 pg (27.0-31.0); Mean Corpuscular Volume 88.1 fL (78.0-98.0); Mean Platelet Volume 6.9 fL (7.4-10.4); Platelet Count 519 thou/uL (130-400); RBC Distribution Width 15.4 % (11.5-14.5); Red Blood Cell (RBC) Count 3.13 mill/uL (4.20-5.40); White Blood Cell (WBC) Count 17.3 thou/uL (4.8-10.8)
[2021-05-06 05:40] LABS: Anion Gap 11 mmol/L (10-20); BUN (Urea Nitrogen) 18 mg/dL (9.8-20.1); Calc. Creatinine Clearance 82 mL/min (70-130); Calcium 9.5 mg/dL (7.8-10.44); Carbon Dioxide 29 mmol/L (23-31); Chloride 104 mmol/L (98-107); Glucose 111 mg/dL (80-115); Potassium 4.3 mmol/L (3.5-5.1); Sodium 140 mmol/L (136-145)
[2021-05-06] MEDS: Aspirin 81 mg Enteric Coated Tablet PO SCH (09:08)
[2021-05-06] MEDS: glipiZIDE 5 MG TAB PO SCH (09:08)
[2021-05-06] MEDS: predniSONE 20 MG TAB PO SCH (09:09)
[2021-05-06] MEDS: hydrALAZINE 25 MG TAB PO SCH ×3 (09:09→21:17)
[2021-05-06] MEDS: Amlodipine 10 MG TAB PO SCH (09:09)
[2021-05-06] MEDS: cefTRIAXone\\ROCEPHIN 2 GM in Sodium Chloride 0.9% 100 ML IVPB SCH (09:17)
[2021-05-06] MEDS ORDERED: Sodium Chloride 0.9% 1,000 ML IV SCH (10:00)
[2021-05-06] MEDS: Benzonatate 100 MG CAP PO SCH ×2 (15:27→21:19)
[2021-05-06] MEDS: Simvastatin 10 MG TAB PO SCH (21:17)
[2021-05-06] MEDS: Amoxicillin/Potassium Clav 875 MG TAB PO SCH (21:17)
[2021-05-06] MEDS: guaiFENesin/DM ER PO SCH (21:18)
[2021-05-07 04:41] LABS: #Eosinphils 0.1 thou/uL (0.0-0.7); #Lymphocytes 2.4 thou/uL (1.20-3.40); #Monocytes 1.3 thou/uL (0.11-0.59); #Neutrophils 12.5 thou/uL (1.40-6.50); %Basophils 0.3 % (0.0-1.0); %Eosinophils 0.3 % (0.0-10.0); %Lymphocytes 14.8 % (21.0-51.0); %Monocytes 8.1 % (0.0-10.0); %Neutrophils 76.4 % (42.0-75.0); Hemoglobin 8.5 g/dL (12.0-16.0); Mean Corpuscular HGB CONC 30.9 g/dL (32.0-36.0); Mean Corpuscular Hemoglobin 27.5 pg (27.0-31.0); Mean Platelet Volume 6.8 fL (7.4-10.4); Platelet Count 535 thou/uL (130-400); RBC Distribution Width 15.4 % (11.5-14.5); White Blood Cell (WBC) Count 16.4 thou/uL (4.8-10.8)
[2021-05-07 04:58] LABS: Anion Gap 11 mmol/L (10-20); BUN (Urea Nitrogen) 17 mg/dL (9.8-20.1); Calc. Creatinine Clearance 87 mL/min (70-130); Calcium 9.3 mg/dL (7.8-10.44); Carbon Dioxide 27 mmol/L (23-31); Chloride 106 mmol/L (98-107); Glucose 104 mg/dL (80-115); Potassium 4.4 mmol/L (3.5-5.1); Sodium 140 mmol/L (136-145)
[2021-05-07] MEDS: guaiFENesin/DM ER PO SCH (09:07)
[2021-05-07] MEDS: Amoxicillin/Potassium Clav 875 MG TAB PO SCH (09:07)
[2021-05-07] MEDS: predniSONE 20 MG TAB PO SCH (09:08)
[2021-05-07] MEDS: Aspirin 81 mg Enteric Coated Tablet PO SCH (09:08)
[2021-05-07] MEDS: glipiZIDE 5 MG TAB PO SCH (09:08)
[2021-05-07] MEDS: hydrALAZINE 25 MG TAB PO SCH ×2 (09:08→14:50)
[2021-05-07] MEDS: Amlodipine 10 MG TAB PO SCH (09:08)
[2021-05-07] MEDS: Benzonatate 100 MG CAP PO SCH ×2 (09:09→14:50)
[2021-05-07 16:16] VITALS: BP 169/68; TEMP 98.2
== END 2021-05-07 17:46 | disposition home health service (06) | DRG 871 ==
LOC: ERS 10:10 → 2NO 15:04 → UNDOADMIN 15:04 → 2NO 20:00 → UNDODISIN 04-28 19:32
PROVIDERS: ADMIT Family Medicine; ATTEND Internal Medicine
PROC: 4A023N7 Measurement of Cardiac Sampling and Pressure, Left Heart, Percutaneous Approach (ICD-10-PCS; principal; 2021-05-01)
PROC: B2111ZZ Fluoroscopy of Multiple Coronary Arteries using Low Osmolar Contrast (ICD-10-PCS; 2021-05-01)
DX: A41.51 Sepsis due to Escherichia coli [E. coli] (principal); I21.A1 Myocardial infarction type 2; J96.01 Acute respiratory failure with hypoxia; N39.0 Urinary tract infection, site not specified; J44.1 Chronic obstructive pulmonary disease with (acute) exacerbation; E78.5 Hyperlipidemia, unspecified; C50.912 Malignant neoplasm of unspecified site of left female breast; E11.22 Type 2 diabetes mellitus with diabetic chronic kidney disease; I25.10 Atherosclerotic heart disease of native coronary artery without angina pectoris; I12.9 Hypertensive chronic kidney disease with stage 1 through stage 4 chronic kidney disease, or unspecified chronic kidney disease; D64.9 Anemia, unspecified; E11.51 Type 2 diabetes mellitus with diabetic peripheral angiopathy without gangrene; N18.2 Chronic kidney disease, stage 2 (mild); Z20.822 Contact with and (suspected) exposure to COVID-19; Z79.82 Long term (current) use of aspirin; Z88.8 Allergy status to other drugs, medicaments and biological substances; Z79.51 Long term (current) use of inhaled steroids; Z98.890 Other specified postprocedural states; Z87.891 Personal history of nicotine dependence; Z92.21 Personal history of antineoplastic chemotherapy
CPT/HCPCS: 36415; 36416; 71045; 71275; 76770; 80048; 80053; 80061; 81003; 81015; 82553; 83036; 83605; 83690; 83735; 83880; 84156; 84484; 85025; 85379; 86038; 86225; 87040; 87077; 87086; 87186; 93005; 93010; 93306; 94640; 96365; 96366; 96367; 96372; 96375; J0692; J0696; J1644; J1650; J1940; J2001; J2250; J2270; J2405; J3010; J3370; J3475; J3490; J7050; J7512; J7620; Q9967; U0002; U0003; U0005

== ENCOUNTER 2021-05-25 08:56 | Inpatient (IN) | payer MEDICARE, MEDICAID ==
[2021-05-25 14:41] VITALS: BMI 27.3
[2021-05-25] MEDS ORDERED: Ondansetron PF 4 MG/2 ML Vial IVP PRN (16:45)
[2021-05-25] MEDS ORDERED: Acetaminophen 325 MG TAB PO PRN (16:45)
[2021-05-25] MEDS ORDERED: Piperacillin/Tazobactam 3.375 GM in Sodium Chloride 0.9% 100 ML IVPB SCH ×2 (17:15→18:00)
[2021-05-25] MEDS: Piperacillin/Tazobactam 3.375 GM in Sodium Chloride 0.9% 100 ML IVPB SCH (21:38)
[2021-05-26] MEDS ORDERED: HumaLOG 300 UNITS/3 ML VIAL SC PRN ×2 (02:28)
[2021-05-26] MEDS ORDERED: Dextrose 50% Abboject 50 ML SYRINGE SLOW IVP PRN (02:28)
[2021-05-26] MEDS ORDERED: Dextrose 5% in Water 1,000 ML IV PRN (02:28)
[2021-05-26] MEDS ORDERED: Bacteriostatic Water 30 ML VIAL FS PRN (03:00)
[2021-05-26] MEDS ORDERED: methylPREDNISolone Sod Succ 40 MG VIAL IVP SCH (03:00)
[2021-05-26] MEDS: Sodium Chloride 0.9% 1,000 ML IV SCH ×2 (03:05→12:51)
[2021-05-26] MEDS: Piperacillin/Tazobactam 3.375 GM in Sodium Chloride 0.9% 100 ML IVPB SCH ×3 (05:19→20:14)
[2021-05-26 05:38] LABS: Anisocytosis SLIGHT = 6-15 cells (100X) (0-5/hpf); Band 9 % (5-11); Hemoglobin 7.4 g/dL (12.0-16.0); Hypochromia MODERATE=16-30 cells (100X) (0-5/hpf); Lymphocytes 8 % (21-51); MDiff Complete? YES; Macrocytosis SLIGHT = 6-15 cells (100X) (0-5/hpf); Mean Corpuscular HGB CONC 30.3 g/dL (32.0-36.0); Mean Corpuscular Hemoglobin 26.1 pg (27.0-31.0); Mean Corpuscular Volume 86.2 fL (78.0-98.0); Mean Platelet Volume 8.1 fL (7.4-10.4); Metamyelocyte 1 % (0-0); Monocytes 7 % (0-10); Myelocyte 1 % (0-0); Neutrophil 73 % (42-75); Nucleated RBC 7 % (0); Platelet Count 193 thou/uL (130-400); Platelet Morphology Comment Appears Adequate; Polychromasia SLIGHT = 2-3 cells (100X) (0-2/hpf); RBC Distribution Width 15.7 % (11.5-14.5); Reactive Lymphocytes 1 % (0-10); Red Blood Cell (RBC) Count 2.82 mill/uL (4.20-5.40); White Blood Cell (WBC) Count 21.3 thou/uL (4.8-10.8)
[2021-05-26 05:42] LABS: ALT (SGPT) 12 U/L (8-55); AST (SGOT) 23 U/L (5-34); Albumin 3.2 g/dL (3.4-4.8); Alkaline Phosphatase 97 U/L (40-110); Anion Gap 11 mmol/L (10-20); BUN (Urea Nitrogen) 11 mg/dL (9.8-20.1); Bilirubin, Total 0.9 mg/dL (0.2-1.2); Calc. Creatinine Clearance 54 mL/min (70-130); Calcium 8.5 mg/dL (7.8-10.44); Carbon Dioxide 29 mmol/L (23-31); Chloride 102 mmol/L (98-107); Globulin 2.2 g/dL (2.4-3.5); Glucose 113 mg/dL (80-115); Potassium 3.9 mmol/L (3.5-5.1); Protein, Total 5.4 g/dL (5.8-8.1); Sodium 138 mmol/L (136-145)
[2021-05-26] MEDS ORDERED: traMADol HCl 50 MG TAB PO SCH (05:45)
[2021-05-26] MEDS: Enoxaparin Sodium 40 MG/0.4 ML SYRINGE SC SCH (08:39)
[2021-05-26] MEDS ORDERED: Mometasone 200 MCG/Formoterol 5 MCG 120 PUFF INHALER INH SCH (20:00)
[2021-05-27] MEDS: Sodium Chloride 0.9% 1,000 ML IV SCH ×3 (00:26→18:13)
[2021-05-27] MEDS: Piperacillin/Tazobactam 3.375 GM in Sodium Chloride 0.9% 100 ML IVPB SCH ×3 (05:06→21:16)
[2021-05-27 05:11] LABS: Band 19 % (5-11); Hemoglobin 7.1 g/dL (12.0-16.0); Lymphocytes 8 % (21-51); MDiff Complete? YES; Mean Corpuscular HGB CONC 31.2 g/dL (32.0-36.0); Mean Corpuscular Hemoglobin 26.8 pg (27.0-31.0); Mean Corpuscular Volume 85.8 fL (78.0-98.0); Mean Platelet Volume 8.8 fL (7.4-10.4); Metamyelocyte 1 % (0-0); Monocytes 4 % (0-10); Myelocyte 1 % (0-0); Neutrophil 67 % (42-75); Nucleated RBC 2 % (0); Platelet Count 188 thou/uL (130-400); Platelet Morphology Comment Appears Adequate; RBC Distribution Width 15.9 % (11.5-14.5); Red Blood Cell (RBC) Count 2.64 mill/uL (4.20-5.40); White Blood Cell (WBC) Count 25.4 thou/uL (4.8-10.8)
[2021-05-27 05:19] LABS: Anion Gap 10 mmol/L (10-20); BUN (Urea Nitrogen) 13 mg/dL (9.8-20.1); Calc. Creatinine Clearance 52 mL/min (70-130); Calcium 8.8 mg/dL (7.8-10.44); Carbon Dioxide 29 mmol/L (23-31); Chloride 105 mmol/L (98-107); Glucose 112 mg/dL (80-115); Sodium 140 mmol/L (136-145)
[2021-05-27] MEDS: Mometasone 200 MCG/Formoterol 5 MCG 120 PUFF INHALER INH SCH ×2 (07:48→18:26)
[2021-05-27] MEDS ORDERED: methylPREDNISolone Sod Succ 40 MG VIAL IVP SCH (09:00)
[2021-05-27] MEDS ORDERED: FLU VACC QS2021-22(65YR UP)/PF 240 MCG/0.7 ML SYRINGE IM ONE (09:00)
[2021-05-27] MEDS: Aspirin 81 mg Enteric Coated Tablet PO SCH (09:53)
[2021-05-27] MEDS: Amlodipine 10 MG TAB PO SCH (09:53)
[2021-05-27] MEDS: Enoxaparin Sodium 40 MG/0.4 ML SYRINGE SC SCH (09:54)
[2021-05-28] MEDS ORDERED: traMADol HCl 50 MG TAB PO ONE (01:00)
[2021-05-28] MEDS: Piperacillin/Tazobactam 3.375 GM in Sodium Chloride 0.9% 100 ML IVPB SCH ×2 (05:09→13:39)
[2021-05-28 05:35] LABS: Anion Gap 13 mmol/L (10-20); BUN (Urea Nitrogen) 11 mg/dL (9.8-20.1); Calc. Creatinine Clearance 55 mL/min (70-130); Calcium 8.7 mg/dL (7.8-10.44); Carbon Dioxide 27 mmol/L (23-31); Chloride 107 mmol/L (98-107); Glucose 115 mg/dL (80-115); Hemoglobin 6.7 g/dL (12.0-16.0); Mean Corpuscular HGB CONC 29.9 g/dL (32.0-36.0); Mean Corpuscular Hemoglobin 25.7 pg (27.0-31.0); Mean Platelet Volume 8.2 fL (7.4-10.4); Platelet Count 190 thou/uL (130-400); Potassium 4.5 mmol/L (3.5-5.1); RBC Distribution Width 16.3 % (11.5-14.5); Red Blood Cell (RBC) Count 2.62 mill/uL (4.20-5.40); Sodium 142 mmol/L (136-145); White Blood Cell (WBC) Count 25.4 thou/uL (4.8-10.8)
[2021-05-28 05:36] LABS: Band 7 % (5-11); Lymphocytes 9 % (21-51); MDiff Complete? YES; Metamyelocyte 1 % (0-0); Monocytes 9 % (0-10); Neutrophil 74 % (42-75); Platelet Morphology Comment Appears Adequate; RBC Morphology Normal
[2021-05-28] MEDS: hydrALAZINE 25 MG TAB PO PRN (05:46)
[2021-05-28] MEDS: Mometasone 200 MCG/Formoterol 5 MCG 120 PUFF INHALER INH SCH ×2 (07:07→19:03)
[2021-05-28] MEDS: traMADol HCl 50 MG TAB PO PRN (09:53)
[2021-05-28] MEDS: Amlodipine 10 MG TAB PO SCH (09:55)
[2021-05-28] MEDS: Sodium Chloride 0.9% 1,000 ML IV SCH (09:55)
[2021-05-29] MEDS ORDERED: hydrALAZINE 20 MG/ML VIAL SLOW IVP PRN (01:20)
[2021-05-29] MEDS: hydrALAZINE 25 MG TAB PO PRN (01:51)
[2021-05-29] MEDS: Piperacillin/Tazobactam 3.375 GM in Sodium Chloride 0.9% 100 ML IVPB SCH ×3 (01:51→18:10)
[2021-05-29 05:12] LABS: #Eosinphils 0.1 thou/uL (0.0-0.7); #Lymphocytes 2.8 thou/uL (1.20-3.40); #Monocytes 0.9 thou/uL (0.11-0.59); #Neutrophils 17.4 thou/uL (1.40-6.50); %Basophils 0.2 % (0.0-1.0); %Eosinophils 0.3 % (0.0-10.0); %Lymphocytes 13.3 % (21.0-51.0); %Monocytes 4.2 % (0.0-10.0); Hemoglobin 7.7 g/dL (12.0-16.0); Mean Corpuscular HGB CONC 30.3 g/dL (32.0-36.0); Mean Corpuscular Hemoglobin 25.9 pg (27.0-31.0); Mean Corpuscular Volume 85.5 fL (78.0-98.0); Mean Platelet Volume 8.1 fL (7.4-10.4); Platelet Count 242 thou/uL (130-400); RBC Distribution Width 16.6 % (11.5-14.5); Red Blood Cell (RBC) Count 2.97 mill/uL (4.20-5.40); White Blood Cell (WBC) Count 21.2 thou/uL (4.8-10.8)
[2021-05-29] MEDS ORDERED: Morphine 4 MG/ML VIAL SLOW IVP SCH (06:45)
[2021-05-29] MEDS: Mometasone 200 MCG/Formoterol 5 MCG 120 PUFF INHALER INH SCH ×2 (06:47→19:23)
[2021-05-29 07:01] LABS: Troponin I Less than 0.010 ng/mL (< 0.028)
[2021-05-29] MEDS: Amlodipine 10 MG TAB PO SCH (08:35)
[2021-05-29] MEDS: Sodium Chloride 0.9% 1,000 ML IV SCH (18:11)
[2021-05-29] MEDS: traMADol HCl 50 MG TAB PO PRN (19:20)
[2021-05-30] MEDS: Piperacillin/Tazobactam 3.375 GM in Sodium Chloride 0.9% 100 ML IVPB SCH ×2 (02:05→09:41)
[2021-05-30 04:56] LABS: Hemoglobin 7.6 g/dL (12.0-16.0); Platelet Count 308 thou/uL (130-400)
[2021-05-30] MEDS: Sodium Chloride 0.9% 1,000 ML IV SCH (05:44)
[2021-05-30] MEDS: Mometasone 200 MCG/Formoterol 5 MCG 120 PUFF INHALER INH SCH (07:16)
[2021-05-30] MEDS: Aspirin 81 mg Enteric Coated Tablet PO SCH (09:42)
[2021-05-30] MEDS: Amlodipine 10 MG TAB PO SCH (09:42)
[2021-05-30 15:25] VITALS: BP 160/70; TEMP 98.9
== END 2021-05-30 17:45 | disposition home or self-care (01) | DRG 391 ==
LOC: 2NO 14:14 → OBSVTOIN 05-26 08:55
PROVIDERS: ADMIT Student in an Organized Health Care Education/Training Program; ATTEND Family Medicine
PROC: 30233N1 Transfusion of Nonautologous Red Blood Cells into Peripheral Vein, Percutaneous Approach (ICD-10-PCS; principal; 2021-05-28)
DX: K52.9 Noninfective gastroenteritis and colitis, unspecified (principal); J96.01 Acute respiratory failure with hypoxia; J44.1 Chronic obstructive pulmonary disease with (acute) exacerbation; N17.9 Acute kidney failure, unspecified; N39.0 Urinary tract infection, site not specified; D64.81 Anemia due to antineoplastic chemotherapy; T45.1X5A Adverse effect of antineoplastic and immunosuppressive drugs, initial encounter; R31.0 Gross hematuria; E78.5 Hyperlipidemia, unspecified; I10 Essential (primary) hypertension; E11.9 Type 2 diabetes mellitus without complications; Z85.3 Personal history of malignant neoplasm of breast; Z92.21 Personal history of antineoplastic chemotherapy; Z88.8 Allergy status to other drugs, medicaments and biological substances; Z79.82 Long term (current) use of aspirin; Z79.899 Other long term (current) drug therapy; Z79.51 Long term (current) use of inhaled steroids; Z98.890 Other specified postprocedural states
CPT/HCPCS: 36415; 36416; 36430; 80048; 80053; 84484; 85014; 85018; 85025; 85049; 86850; 86900; 86901; 87045; 87046; 87427; 87449; 93005; 93010; J1650; J2270; J2405; J2543; J2920; J3490; J7050; P9016

== ENCOUNTER 2021-06-21 08:21 | Day surgery (SDC) | payer MEDICARE, MEDICAID ==
[2021-06-21] MEDS ORDERED: diphenhydrAMINE 25 MG CAP PO SCH (08:45)
[2021-06-21 11:56] VITALS: TEMP 97.8
[2021-06-21 14:03] VITALS: BP 182/81
== END 2021-06-21 14:04 | disposition home or self-care (01) ==
LOC: ONC/OP 08:21
PROVIDERS: ATTEND Internal Medicine Hematology & Oncology
PROC: 30233N1 Transfusion of Nonautologous Red Blood Cells into Peripheral Vein, Percutaneous Approach (ICD-10-PCS; principal; 2021-06-21)
DX: D64.9 Anemia, unspecified (principal); D69.6 Thrombocytopenia, unspecified; Z88.5 Allergy status to narcotic agent; Z88.6 Allergy status to analgesic agent; Z88.8 Allergy status to other drugs, medicaments and biological substances
CPT/HCPCS: 36430; 86850; 86870; 86900; 86901; 86922; P9016

== ENCOUNTER 2021-07-05 09:45 | Outpatient (CLI) | payer MEDICARE, MEDICAID | END 2021-07-05 09:46 | disposition home or self-care (01) | LOC: PET 09:45 | PROVIDERS: ATTEND Internal Medicine Hematology & Oncology | DX: C50.412 Malignant neoplasm of upper-outer quadrant of left female breast (principal) | CPT/HCPCS: 78815; A9552 ==

== ENCOUNTER 2021-09-07 09:39 | Outpatient (CLI) | payer MEDICARE, MEDICAID | END 2021-09-07 09:40 | disposition home or self-care (01) | LOC: PET 09:39 | PROVIDERS: ATTEND Internal Medicine Hematology & Oncology | DX: C50.412 Malignant neoplasm of upper-outer quadrant of left female breast (principal) | CPT/HCPCS: 78815; A9552 ==

== ENCOUNTER 2021-09-13 12:26 | Outpatient (CLI) | payer MEDICARE, MEDICAID | END 2021-09-13 12:27 | disposition home or self-care (01) | LOC: TBSIIMAG 12:26 | PROVIDERS: ATTEND Internal Medicine Hematology & Oncology | DX: C50.412 Malignant neoplasm of upper-outer quadrant of left female breast (principal); C79.51 Secondary malignant neoplasm of bone; G95.0 Syringomyelia and syringobulbia; R93.7 Abnormal findings on diagnostic imaging of other parts of musculoskeletal system | CPT/HCPCS: 72157; 72158 ==

== ENCOUNTER 2021-09-14 14:24 | Outpatient (CLI) | payer MEDICARE, MEDICAID ==
[2021-09-14 15:58] LABS: #Basophils 0.1 10x3/uL (0.0-0.2); #Eosinphils 0.1 10x3/uL (0.0-0.5); #Neutrophils 8.6 10x3/uL (1.5-8.4); %Basophils 0.6 % (0.0-2.0); %Eosinophils 1.2 % (0.0-6.0); %Lymphocytes 14.9 % (18.0-47.0); %Monocytes 8.7 % (0.0-10.0); Hemoglobin 10.8 g/dL (12.0-15.5); Mean Corpuscular HGB CONC 29.4 g/dL (32.0-36.0); Mean Corpuscular Hemoglobin 27.3 pg (27.0-33.0); Mean Corpuscular Volume 92.7 fl (81.6-98.3); Mean Platelet Volume 9.1 fl (7.4-10.4); Platelet Count 326 10x3/uL (150-450); RBC Distribution Width 23.1 % (11.5-14.5); Red Blood Cell (RBC) Count 3.96 10x6/uL (3.90-5.03); White Blood Cell (WBC) Count 11.6 10x3/uL (3.5-10.5)
[2021-09-14 16:14] LABS: Anisocytosis SLIGHT = 6-15 cells (100X) (0-5/hpf); Hypochromia SLIGHT = 6-15 cells (100X) (0-5/hpf)
[2021-09-14 16:15] LABS: Platelet Morphology Comment Appears Adequate
[2021-09-14 16:18] LABS: Anion Gap 13 mmol/L (10-20); BUN (Urea Nitrogen) 17 mg/dL (9.8-20.1); Calc. Creatinine Clearance 0 mL/min (70-130); Calcium 9.8 mg/dL (7.8-10.44); Carbon Dioxide 31 mmol/L (23-31); Chloride 103 mmol/L (98-107); Glucose 111 mg/dL (80-115); Sodium 143 mmol/L (136-145)
[2021-09-14 23:50] LABS: SARS-CoV-2 PCR by NAA Not Detected (NotDetected)
== END 2021-09-14 14:25 | disposition home or self-care (01) ==
LOC: LABBT 14:24
PROVIDERS: ATTEND Specialist
DX: Z01.818 Encounter for other preprocedural examination (principal); C50.912 Malignant neoplasm of unspecified site of left female breast; C79.9 Secondary malignant neoplasm of unspecified site; Z20.822 Contact with and (suspected) exposure to COVID-19
CPT/HCPCS: 80048; 85025; U0003; U0005

== ENCOUNTER 2021-09-18 06:31 | Day surgery (SDC) | payer MEDICARE, MEDICAID ==
[2021-09-14 13:41] VITALS: BMI 30.2
[2021-09-18] MEDS ORDERED: Lidocaine 1% PF 5 ML VIAL ONE (14:34)
[2021-09-18] MEDS ORDERED: Dexamethasone 20 MG/5 ML VIAL ONE (14:34)
[2021-09-18] MEDS ORDERED: Ondansetron PF 4 MG/2 ML Vial ONE (14:34)
[2021-09-18] MEDS ORDERED: PHENYLEPHRINE-NS 100 MCG/ML 10 ML SYRINGE ONE (14:34)
[2021-09-18] MEDS ORDERED: ePHEDrine Sulfate 50 MG/10 ML VIAL ONE (14:34)
[2021-09-18] MEDS ORDERED: PROPOFOL 200 MG/20 ML VIAL ONE (14:34)
== END 2021-09-18 19:00 | disposition home or self-care (01) ==
LOC: SJX 06:31 → SDC 19:00
PROVIDERS: ATTEND Specialist
PROC: 0HBU0ZZ Excision of Left Breast, Open Approach (ICD-10-PCS; principal; 2021-09-18)
PROC: 07B60ZX Excision of Left Axillary Lymphatic, Open Approach, Diagnostic (ICD-10-PCS; 2021-09-18)
DX: C50.812 Malignant neoplasm of overlapping sites of left female breast (principal); C77.0 Secondary and unspecified malignant neoplasm of lymph nodes of head, face and neck; C77.3 Secondary and unspecified malignant neoplasm of axilla and upper limb lymph nodes; N60.32 Fibrosclerosis of left breast; N60.42 Mammary duct ectasia of left breast; E11.9 Type 2 diabetes mellitus without complications; E78.00 Pure hypercholesterolemia, unspecified; I10 Essential (primary) hypertension; J45.909 Unspecified asthma, uncomplicated; Z17.0 Estrogen receptor positive status [ER+]; Z87.891 Personal history of nicotine dependence; Z79.82 Long term (current) use of aspirin; Z79.84 Long term (current) use of oral hypoglycemic drugs; Z79.899 Other long term (current) drug therapy; Z88.5 Allergy status to narcotic agent; Z88.6 Allergy status to analgesic agent; Z88.8 Allergy status to other drugs, medicaments and biological substances
CPT/HCPCS: 19281; 19301; 38525; 38900; 76098; 78195; A9541; C1713; 88307; 88333; 88334; 88342; J1100; J2405; J2704

== ENCOUNTER 2022-01-16 10:15 | Outpatient (CLI) | payer MEDICARE, OTHER | END 2022-01-16 10:16 | disposition home or self-care (01) | LOC: BICCT 10:15 | PROVIDERS: ATTEND Radiology Radiation Oncology | DX: C50.912 Malignant neoplasm of unspecified site of left female breast (principal); C77.1 Secondary and unspecified malignant neoplasm of intrathoracic lymph nodes | CPT/HCPCS: 71260 ==

== ENCOUNTER 2022-02-07 09:29 | Inpatient (IN) | payer MEDICARE, MEDICAID ==
[2022-02-07] MEDS ORDERED: hydrALAZINE 20 MG/ML VIAL ONE (09:49)
[2022-02-07 10:09] LABS: #Eosinphils 0.3 thou/uL (0.0-0.7); #Lymphocytes 1.4 thou/uL (1.20-3.40); #Monocytes 0.5 thou/uL (0.11-0.59); #Neutrophils 3.4 thou/uL (1.40-6.50); %Basophils 0.3 % (0.0-1.0); %Eosinophils 5.2 % (0.0-10.0); %Monocytes 8.5 % (0.0-10.0); Hemoglobin 11.2 g/dL (12.0-16.0); Mean Corpuscular HGB CONC 30.9 g/dL (32.0-36.0); Mean Corpuscular Hemoglobin 26.4 pg (27.0-31.0); Mean Corpuscular Volume 85.4 fL (78.0-98.0); Mean Platelet Volume 6.8 fL (7.4-10.4); Platelet Count 268 thou/uL (130-400); RBC Distribution Width 16.2 % (11.5-14.5); Red Blood Cell (RBC) Count 4.25 mill/uL (4.20-5.40); White Blood Cell (WBC) Count 5.5 thou/uL (4.8-10.8)
[2022-02-07 10:24] LABS: ALT (SGPT) Less than 7 U/L (8-55); AST (SGOT) 12 U/L (5-34); Albumin 3.9 g/dL (3.4-4.8); Alkaline Phosphatase 113 U/L (40-110); Anion Gap 13 mmol/L (10-20); BUN (Urea Nitrogen) 17 mg/dL (9.8-20.1); Bilirubin, Total 0.5 mg/dL (0.2-1.2); Calc. Creatinine Clearance 0 mL/min (70-130); Calcium 10.4 mg/dL (7.8-10.44); Carbon Dioxide 27 mmol/L (23-31); Chloride 105 mmol/L (98-107); Globulin 3.2 g/dL (2.4-3.5); Glucose 87 mg/dL (80-115); Lipase 8 U/L (8-78); Magnesium 1.9 mg/dL (1.6-2.6); Potassium 4.3 mmol/L (3.5-5.1); Protein, Total 7.1 g/dL (5.8-8.1); Sodium 141 mmol/L (136-145)
[2022-02-07] MEDS ORDERED: Iopamidol 370 76% 100 ML VIAL ONE (12:02)
[2022-02-07] MEDS ORDERED: HumaLOG 300 UNITS/3 ML VIAL SC PRN (12:02)
[2022-02-07] MEDS ORDERED: Dextrose 5% in Water 1,000 ML IV PRN (12:02)
[2022-02-07] MEDS ORDERED: Dextrose 50% Abboject 50 ML SYRINGE SLOW IVP PRN (12:02)
[2022-02-07] MEDS ORDERED: Bisacodyl 5 MG TAB PO PRN (12:22)
[2022-02-07] MEDS ORDERED: hydrALAZINE 20 MG/ML VIAL SLOW IVP PRN (12:22)
[2022-02-07] MEDS ORDERED: Ondansetron PF 4 MG/2 ML Vial IVP PRN (12:22)
[2022-02-07 12:24] VITALS: BMI 27.6
[2022-02-07 13:14] LABS: Troponin I Less than 0.010 ng/mL (< 0.028)
[2022-02-07 17:17] LABS: Troponin I 0.012 ng/mL (< 0.028)
[2022-02-08 04:41] LABS: #Eosinphils 0.3 thou/uL (0.0-0.7); #Lymphocytes 1.6 thou/uL (1.20-3.40); #Monocytes 0.6 thou/uL (0.11-0.59); #Neutrophils 3.8 thou/uL (1.40-6.50); %Basophils 0.2 % (0.0-1.0); %Eosinophils 5.5 % (0.0-10.0); %Lymphocytes 24.8 % (21.0-51.0); %Monocytes 9.3 % (0.0-10.0); %Neutrophils 60.3 % (42.0-75.0); Hemoglobin 10.9 g/dL (12.0-16.0); Mean Corpuscular HGB CONC 31.6 g/dL (32.0-36.0); Mean Corpuscular Hemoglobin 27.1 pg (27.0-31.0); Mean Corpuscular Volume 85.9 fL (78.0-98.0); Mean Platelet Volume 6.8 fL (7.4-10.4); Platelet Count 256 thou/uL (130-400); RBC Distribution Width 16.4 % (11.5-14.5); Red Blood Cell (RBC) Count 4.03 mill/uL (4.20-5.40); White Blood Cell (WBC) Count 6.4 thou/uL (4.8-10.8)
[2022-02-08 05:04] LABS: Anion Gap 11 mmol/L (10-20); BUN (Urea Nitrogen) 16 mg/dL (9.8-20.1); Calc. Creatinine Clearance 76 mL/min (70-130); Calcium 10.1 mg/dL (7.8-10.44); Carbon Dioxide 27 mmol/L (23-31); Chloride 106 mmol/L (98-107); Glucose 100 mg/dL (80-115); Sodium 140 mmol/L (136-145)
[2022-02-08] MEDS ORDERED: Polyethylene Glycol 3350 17 GM Packet PO PRN (07:34)
[2022-02-08] MEDS ORDERED: Bisacodyl 10 MG SUPP PR PRN (07:34)
[2022-02-08] MEDS ORDERED: ISOSORBIDE MONONITRATE 120 MG PO SCH (09:00)
[2022-02-08] MEDS: Enoxaparin Sodium 40 MG/0.4 ML SYRINGE SC SCH (09:30)
[2022-02-08] MEDS: Aspirin 81 mg Enteric Coated Tablet PO SCH (09:30)
[2022-02-08] MEDS: Ezetimibe 10 MG TAB PO SCH (09:30)
[2022-02-08] MEDS ORDERED: hydrALAZINE 10 MG TAB PO SCH (15:00)
[2022-02-09] MEDS ORDERED: hydrALAZINE 20 MG/ML VIAL SLOW IVP SCH ×2 (05:00→13:00)
[2022-02-09] MEDS ORDERED: Azithromycin 250 MG TAB PO SCH (09:00)
[2022-02-09] MEDS: Ezetimibe 10 MG TAB PO SCH (09:03)
[2022-02-09] MEDS: Enoxaparin Sodium 40 MG/0.4 ML SYRINGE SC SCH (09:03)
[2022-02-09] MEDS: Aspirin 81 mg Enteric Coated Tablet PO SCH (09:03)
[2022-02-09] MEDS ORDERED: Spironolactone 25 MG TAB PO SCH (13:00)
[2022-02-09 15:36] VITALS: BP 150/56; TEMP 98.2
[2022-02-10] MEDS ORDERED: Spironolactone 25 MG TAB PO SCH (08:00)
== END 2022-02-09 16:40 | disposition home health service (06) | DRG 304 ==
LOC: ERS 09:29 → 2SW 10:51 → OBSVTOIN 02-09 07:56
PROVIDERS: ADMIT Internal Medicine; ATTEND Internal Medicine
DX: I16.0 Hypertensive urgency (principal); J96.01 Acute respiratory failure with hypoxia; J18.9 Pneumonia, unspecified organism; J44.0 Chronic obstructive pulmonary disease with (acute) lower respiratory infection; R00.1 Bradycardia, unspecified; R07.89 Other chest pain; I25.10 Atherosclerotic heart disease of native coronary artery without angina pectoris; E11.51 Type 2 diabetes mellitus with diabetic peripheral angiopathy without gangrene; I10 Essential (primary) hypertension; E78.00 Pure hypercholesterolemia, unspecified; E78.5 Hyperlipidemia, unspecified; J44.9 Chronic obstructive pulmonary disease, unspecified; Z60.2 Problems related to living alone; Z20.822 Contact with and (suspected) exposure to COVID-19; Z92.21 Personal history of antineoplastic chemotherapy; Z92.3 Personal history of irradiation; Z85.3 Personal history of malignant neoplasm of breast; Z98.890 Other specified postprocedural states; Z88.8 Allergy status to other drugs, medicaments and biological substances; Z79.82 Long term (current) use of aspirin; Z79.899 Other long term (current) drug therapy; Z87.891 Personal history of nicotine dependence; Z82.49 Family history of ischemic heart disease and other diseases of the circulatory system
CPT/HCPCS: 36415; 71045; 71275; 77014; 77293; 77300; 77301; 77334; 77338; 77373; 80048; 80053; 83690; 83735; 83880; 84484; 85025; 85379; 93005; 93306; 96374; 96376; G0378; J0360; J1650; Q9967; U0003; U0005

== ENCOUNTER 2022-04-04 10:15 | Outpatient (CLI) | payer MEDICARE, OTHER | END 2022-04-04 10:16 | disposition home or self-care (01) | LOC: PET 10:15 | PROVIDERS: ATTEND Internal Medicine Hematology & Oncology | DX: C50.412 Malignant neoplasm of upper-outer quadrant of left female breast (principal); D50.8 Other iron deficiency anemias | CPT/HCPCS: 78815; A9552 ==

== ENCOUNTER 2022-04-29 11:33 | Inpatient (IN) | payer OTHER ==
[2022-04-29] MEDS ORDERED: Atropine Sulfate 1 mg/10 ml Syringe ONE (12:13)
[2022-04-29 12:28] LABS: #Eosinphils 0.3 thou/uL (0.0-0.7); #Lymphocytes 1.2 thou/uL (1.20-3.40); #Monocytes 0.4 thou/uL (0.11-0.59); #Neutrophils 3.6 thou/uL (1.40-6.50); %Basophils 0.7 % (0.0-1.0); %Eosinophils 4.8 % (0.0-10.0); %Lymphocytes 21.6 % (21.0-51.0); %Monocytes 6.6 % (0.0-10.0); %Neutrophils 66.4 % (42.0-75.0); Hemoglobin 12.1 g/dL (12.0-16.0); Mean Corpuscular HGB CONC 31.8 g/dL (32.0-36.0); Mean Corpuscular Hemoglobin 27.5 pg (27.0-31.0); Mean Corpuscular Volume 86.5 fL (78.0-98.0); Mean Platelet Volume 7.8 fL (7.4-10.4); Platelet Count 212 thou/uL (130-400); RBC Distribution Width 16.1 % (11.5-14.5); Red Blood Cell (RBC) Count 4.41 mill/uL (4.20-5.40); White Blood Cell (WBC) Count 5.4 thou/uL (4.8-10.8)
[2022-04-29 12:50] LABS: ALT (SGPT) 13 U/L (8-55); AST (SGOT) 17 U/L (5-34); Albumin 4.2 g/dL (3.4-4.8); Alkaline Phosphatase 97 U/L (40-110); Anion Gap 14 mmol/L (10-20); BUN (Urea Nitrogen) 19 mg/dL (9.8-20.1); Bilirubin, Total 0.4 mg/dL (0.2-1.2); Calc. Creatinine Clearance 0 mL/min (70-130); Calcium 10.4 mg/dL (7.8-10.44); Carbon Dioxide 27 mmol/L (23-31); Chloride 104 mmol/L (98-107); Estimated GFR 64; Glucose 99 mg/dL (80-115); Potassium 4.2 mmol/L (3.5-5.1); Protein, Total 7.2 g/dL (5.8-8.1); Sodium 141 mmol/L (136-145)
[2022-04-29] MEDS ORDERED: Ibuprofen 200 MG TAB ONE (13:18)
[2022-04-29 16:16] LABS: Troponin I Less than 0.010 ng/mL (< 0.028)
[2022-04-29] MEDS ORDERED: Bisacodyl 5 MG TAB PO PRN (16:28)
[2022-04-29] MEDS ORDERED: Dextrose 5% in Water 1,000 ML IV PRN (16:28)
[2022-04-29] MEDS ORDERED: Dextrose 50% Abboject 50 ML SYRINGE SLOW IVP PRN (16:28)
[2022-04-29] MEDS ORDERED: HumaLOG 300 UNITS/3 ML VIAL SC PRN (16:28)
[2022-04-29 17:14] VITALS: BMI 28.4
[2022-04-29 19:00] LABS: Troponin I Less than 0.010 ng/mL (< 0.028)
[2022-04-29 20:19] LABS: SARS-CoV-2 NAA Rapid Test DETECTED (NotDetected)
[2022-04-30 03:55] LABS: #Eosinphils 0.3 thou/uL (0.0-0.7); #Lymphocytes 1.5 thou/uL (1.20-3.40); #Monocytes 0.5 thou/uL (0.11-0.59); #Neutrophils 1.9 thou/uL (1.40-6.50); %Basophils 0.5 % (0.0-1.0); %Eosinophils 7.8 % (0.0-10.0); %Lymphocytes 35.4 % (21.0-51.0); %Monocytes 11.6 % (0.0-10.0); %Neutrophils 44.6 % (42.0-75.0); Hemoglobin 11.7 g/dL (12.0-16.0); Mean Corpuscular HGB CONC 32.6 g/dL (32.0-36.0); Mean Corpuscular Hemoglobin 27.9 pg (27.0-31.0); Mean Corpuscular Volume 85.7 fL (78.0-98.0); Mean Platelet Volume 7.9 fL (7.4-10.4); Platelet Count 202 thou/uL (130-400); RBC Distribution Width 16.2 % (11.5-14.5); Red Blood Cell (RBC) Count 4.18 mill/uL (4.20-5.40); White Blood Cell (WBC) Count 4.3 thou/uL (4.8-10.8)
[2022-04-30 04:20] LABS: Anion Gap 13 mmol/L (10-20); BUN (Urea Nitrogen) 20 mg/dL (9.8-20.1); Calc. Creatinine Clearance 74 mL/min (70-130); Calcium 9.8 mg/dL (7.8-10.44); Carbon Dioxide 26 mmol/L (23-31); Chloride 106 mmol/L (98-107); Estimated GFR 68; Glucose 92 mg/dL (80-115); Sodium 141 mmol/L (136-145)
[2022-04-30] MEDS: Icosapent Ethyl 1 GM CAPSULE PO SCH ×2 (09:35→17:48)
[2022-04-30] MEDS: Enoxaparin Sodium 40 MG/0.4 ML SYRINGE SC SCH (09:35)
[2022-04-30] MEDS: Cholecalciferol 1,000 UNITS (25 MCG) TAB PO SCH (09:36)
[2022-04-30] MEDS: Spironolactone 25 MG TAB PO SCH (09:36)
[2022-04-30] MEDS: Aspirin 81 mg Enteric Coated Tablet PO SCH (09:36)
[2022-04-30] MEDS: Allopurinol 100 MG TAB PO SCH (09:36)
[2022-04-30] MEDS: Ezetimibe 10 MG TAB PO SCH (09:36)
[2022-04-30] MEDS: Zinc Sulfate 220 MG CAP PO SCH (09:36)
[2022-04-30] MEDS: Ascorbic Acid 500 mg Chewable Tablet PO SCH (09:36)
[2022-04-30] MEDS: traMADol HCl 50 MG TAB PO SCH (20:51)
[2022-04-30] MEDS: Gabapentin 300 MG CAP PO SCH (20:52)
[2022-05-01] MEDS: hydrALAZINE 20 MG/ML VIAL SLOW IVP PRN (00:20)
[2022-05-01] MEDS: Ascorbic Acid 500 mg Chewable Tablet PO SCH (08:47)
[2022-05-01] MEDS: Icosapent Ethyl 1 GM CAPSULE PO SCH ×2 (08:47→17:04)
[2022-05-01] MEDS: Zinc Sulfate 220 MG CAP PO SCH (08:48)
[2022-05-01] MEDS: Spironolactone 25 MG TAB PO SCH (08:48)
[2022-05-01] MEDS: traMADol HCl 50 MG TAB PO SCH ×3 (08:48→20:32)
[2022-05-01] MEDS: Ezetimibe 10 MG TAB PO SCH (08:48)
[2022-05-01] MEDS: Cholecalciferol 1,000 UNITS (25 MCG) TAB PO SCH (08:48)
[2022-05-01] MEDS: Allopurinol 100 MG TAB PO SCH (08:48)
[2022-05-01] MEDS: Gabapentin 300 MG CAP PO SCH ×2 (08:48→20:31)
[2022-05-01] MEDS: Aspirin 81 mg Enteric Coated Tablet PO SCH (08:49)
[2022-05-01] MEDS: Enoxaparin Sodium 40 MG/0.4 ML SYRINGE SC SCH (08:49)
[2022-05-01] MEDS: Anastrozole 1 MG TAB PO SCH (08:49)
[2022-05-01] MEDS: Ondansetron PF 4 MG/2 ML Vial IVP PRN ×2 (08:52→20:31)
[2022-05-01] MEDS ORDERED: Allopurinol 100 MG TAB PO SCH (09:00)
[2022-05-01] MEDS ORDERED: Dexamethasone 10 MG/ML VIAL SLOW IVP SCH (15:30)
[2022-05-01] MEDS: Meclizine HCl 25 MG TAB PO SCH ×2 (17:04→23:52)
[2022-05-02] MEDS: Icosapent Ethyl 1 GM CAPSULE PO SCH ×2 (09:14→17:13)
[2022-05-02] MEDS: Spironolactone 25 MG TAB PO SCH (09:15)
[2022-05-02] MEDS: traMADol HCl 50 MG TAB PO SCH ×3 (09:15→20:08)
[2022-05-02] MEDS: Allopurinol 100 MG TAB PO SCH (09:15)
[2022-05-02] MEDS: Gabapentin 300 MG CAP PO SCH ×2 (09:15→20:06)
[2022-05-02] MEDS: Meclizine HCl 25 MG TAB PO SCH ×2 (09:15→17:13)
[2022-05-02] MEDS: Anastrozole 1 MG TAB PO SCH (09:15)
[2022-05-02] MEDS: Ezetimibe 10 MG TAB PO SCH (09:16)
[2022-05-02] MEDS: Cholecalciferol 1,000 UNITS (25 MCG) TAB PO SCH (09:16)
[2022-05-02] MEDS: Zinc Sulfate 220 MG CAP PO SCH (09:16)
[2022-05-02] MEDS: Dexamethasone 10 MG/ML VIAL SLOW IVP SCH (09:16)
[2022-05-02] MEDS: Aspirin 81 mg Enteric Coated Tablet PO SCH (09:16)
[2022-05-02] MEDS: Ascorbic Acid 500 mg Chewable Tablet PO SCH (09:16)
[2022-05-02] MEDS: Enoxaparin Sodium 40 MG/0.4 ML SYRINGE SC SCH (09:16)
[2022-05-03] MEDS: Meclizine HCl 25 MG TAB PO SCH ×4 (00:27→23:24)
[2022-05-03] MEDS: hydrALAZINE 20 MG/ML VIAL SLOW IVP PRN ×2 (00:40→20:51)
[2022-05-03] MEDS: Anastrozole 1 MG TAB PO SCH (08:48)
[2022-05-03] MEDS: traMADol HCl 50 MG TAB PO SCH ×3 (08:48→20:51)
[2022-05-03] MEDS: Aspirin 81 mg Enteric Coated Tablet PO SCH (08:48)
[2022-05-03] MEDS: Ascorbic Acid 500 mg Chewable Tablet PO SCH (08:48)
[2022-05-03] MEDS: Spironolactone 25 MG TAB PO SCH (08:48)
[2022-05-03] MEDS: Dexamethasone 10 MG/ML VIAL SLOW IVP SCH (08:49)
[2022-05-03] MEDS: Cholecalciferol 1,000 UNITS (25 MCG) TAB PO SCH (08:49)
[2022-05-03] MEDS: Enoxaparin Sodium 40 MG/0.4 ML SYRINGE SC SCH (08:49)
[2022-05-03] MEDS: Allopurinol 100 MG TAB PO SCH (08:49)
[2022-05-03] MEDS: Gabapentin 300 MG CAP PO SCH ×2 (08:49→20:51)
[2022-05-03] MEDS: Zinc Sulfate 220 MG CAP PO SCH (08:49)
[2022-05-03] MEDS: Ezetimibe 10 MG TAB PO SCH (08:49)
[2022-05-03] MEDS: Icosapent Ethyl 1 GM CAPSULE PO SCH ×2 (08:56→17:19)
[2022-05-04 05:01] VITALS: TEMP 98
[2022-05-04 07:57] VITALS: BP 134/59
[2022-05-04] MEDS: Enoxaparin Sodium 40 MG/0.4 ML SYRINGE SC SCH (09:37)
[2022-05-04] MEDS: Dexamethasone 10 MG/ML VIAL SLOW IVP SCH (09:37)
[2022-05-04] MEDS: Cholecalciferol 1,000 UNITS (25 MCG) TAB PO SCH (09:38)
[2022-05-04] MEDS: Gabapentin 300 MG CAP PO SCH (09:38)
[2022-05-04] MEDS: Icosapent Ethyl 1 GM CAPSULE PO SCH (09:38)
[2022-05-04] MEDS: Ezetimibe 10 MG TAB PO SCH (09:39)
[2022-05-04] MEDS: Anastrozole 1 MG TAB PO SCH (09:39)
[2022-05-04] MEDS: Ascorbic Acid 500 mg Chewable Tablet PO SCH (09:39)
[2022-05-04] MEDS: traMADol HCl 50 MG TAB PO SCH (09:39)
[2022-05-04] MEDS: Allopurinol 100 MG TAB PO SCH (09:40)
[2022-05-04] MEDS: Zinc Sulfate 220 MG CAP PO SCH (09:40)
[2022-05-04] MEDS: Aspirin 81 mg Enteric Coated Tablet PO SCH (09:40)
[2022-05-04] MEDS: Spironolactone 25 MG TAB PO SCH (09:40)
[2022-05-04] MEDS: Meclizine HCl 25 MG TAB PO SCH (09:41)
== END 2022-05-04 11:54 | disposition home or self-care (01) | DRG 179 ==
LOC: ERS 11:33 → ERHOLD 14:07 → IMCU/EMU 16:46 → ERHOLD 05-03 16:45 → IMCU/EMU 05-03 16:46 → 2NO 05-03 18:03
PROVIDERS: ADMIT Internal Medicine; ATTEND Hospitalist
PROC: 8E0ZXY6 Isolation (ICD-10-PCS; principal; 2022-04-29)
DX: U07.1 COVID-19 (principal); R00.1 Bradycardia, unspecified; I16.0 Hypertensive urgency; J44.9 Chronic obstructive pulmonary disease, unspecified; E11.51 Type 2 diabetes mellitus with diabetic peripheral angiopathy without gangrene; E78.5 Hyperlipidemia, unspecified; N18.2 Chronic kidney disease, stage 2 (mild); E11.22 Type 2 diabetes mellitus with diabetic chronic kidney disease; I12.9 Hypertensive chronic kidney disease with stage 1 through stage 4 chronic kidney disease, or unspecified chronic kidney disease; Z85.3 Personal history of malignant neoplasm of breast; Z92.21 Personal history of antineoplastic chemotherapy; Z92.3 Personal history of irradiation; Z79.899 Other long term (current) drug therapy; Z98.890 Other specified postprocedural states; Z90.12 Acquired absence of left breast and nipple; Z88.8 Allergy status to other drugs, medicaments and biological substances; Z79.82 Long term (current) use of aspirin; Z82.49 Family history of ischemic heart disease and other diseases of the circulatory system; Z87.891 Personal history of nicotine dependence
CPT/HCPCS: 36415; 36416; 71045; 80048; 80053; 84443; 84484; 85025; 93005; 96374; J0360; J0461; J1100; J1650; J2405; U0002

== ENCOUNTER 2022-08-02 08:30 | Outpatient (CLI) | payer MEDICARE, MEDICAID | END 2022-08-02 08:31 | disposition home or self-care (01) | LOC: BICMAMMO 08:30 | PROVIDERS: ATTEND Internal Medicine Hematology & Oncology | DX: Z13.820 Encounter for screening for osteoporosis (principal); C50.412 Malignant neoplasm of upper-outer quadrant of left female breast; D50.8 Other iron deficiency anemias | CPT/HCPCS: 77080 ==

== ENCOUNTER 2022-08-28 09:53 | Outpatient (CLI) | payer OTHER, MEDICAID | END 2022-08-28 09:54 | disposition home or self-care (01) | LOC: BICMAMMO 09:53 | PROVIDERS: ATTEND Specialist | DX: Z08 Encounter for follow-up examination after completed treatment for malignant neoplasm (principal); Z85.3 Personal history of malignant neoplasm of breast | CPT/HCPCS: 77066; G0279 ==

== ENCOUNTER 2023-02-07 12:04 | Outpatient (CLI) | payer OTHER, MEDICAID ==
[~2023-02-07 12:04] MED LIST changes: -Iopamidol-370 76% 500 ML 1 ML ONE; +Iopamidol-370 76% 500 ML MDV (1 ML CHARGE) ONE
== END 2023-02-07 12:05 | disposition home or self-care (01) ==
LOC: BICCT 12:04
PROVIDERS: ATTEND Internal Medicine Hematology & Oncology
DX: C50.412 Malignant neoplasm of upper-outer quadrant of left female breast (principal); C77.9 Secondary and unspecified malignant neoplasm of lymph node, unspecified
CPT/HCPCS: 71260; 74177; 82565; Q9967

== ENCOUNTER 2023-09-11 08:57 | Outpatient (CLI) | payer OTHER, MEDICAID ==
[2023-09-11] MEDS ORDERED: Iopamidol 370 76% 100 ML VIAL ONE (13:43)
== END 2023-09-11 08:58 | disposition home or self-care (01) ==
LOC: BICCT 08:57
PROVIDERS: ATTEND Internal Medicine Hematology & Oncology
DX: C50.412 Malignant neoplasm of upper-outer quadrant of left female breast (principal); C77.9 Secondary and unspecified malignant neoplasm of lymph node, unspecified; E27.8 Other specified disorders of adrenal gland
CPT/HCPCS: 71260; 74177; 82565; Q9967

== ENCOUNTER 2024-03-11 08:39 | Outpatient (CLI) | payer OTHER, MEDICAID | END 2024-03-11 08:40 | disposition home or self-care (01) | LOC: BICCT 08:39 | PROVIDERS: ATTEND Internal Medicine Hematology & Oncology | DX: C50.412 Malignant neoplasm of upper-outer quadrant of left female breast (principal); C77.9 Secondary and unspecified malignant neoplasm of lymph node, unspecified; I25.10 Atherosclerotic heart disease of native coronary artery without angina pectoris; I70.0 Atherosclerosis of aorta; J98.4 Other disorders of lung; E27.8 Other specified disorders of adrenal gland; D25.9 Leiomyoma of uterus, unspecified; K57.30 Diverticulosis of large intestine without perforation or abscess without bleeding; K43.9 Ventral hernia without obstruction or gangrene; I70.8 Atherosclerosis of other arteries; M47.816 Spondylosis without myelopathy or radiculopathy, lumbar region; Z98.890 Other specified postprocedural states | CPT/HCPCS: 71260; 74177 ==

== ENCOUNTER 2024-09-20 13:08 | Outpatient (CLI) | payer OTHER, MEDICAID ==
[~2024-09-20 13:08] MED LIST changes: +Iopamidol 370 76% 100 ML VIAL ONE; -Iopamidol-370 76% 500 ML MDV (1 ML CHARGE) ONE
== END 2024-09-20 13:09 | disposition home or self-care (01) ==
LOC: BICCT 13:08
PROVIDERS: ATTEND Internal Medicine Hematology & Oncology
DX: C50.412 Malignant neoplasm of upper-outer quadrant of left female breast (principal); D50.8 Other iron deficiency anemias; I70.0 Atherosclerosis of aorta; E27.8 Other specified disorders of adrenal gland; K44.9 Diaphragmatic hernia without obstruction or gangrene; K43.9 Ventral hernia without obstruction or gangrene; K57.30 Diverticulosis of large intestine without perforation or abscess without bleeding; R92.30 Dense breasts, unspecified
CPT/HCPCS: 36415; 71260; 74177; 82565